=== PATIENT | male | born 1955 | race Caucasian/White ===

== ENCOUNTER 2023-06-02 07:46 | Outpatient (OUT) | payer MEDICARE, OTHER, SELFPAY ==
--- NOTE | 2023-06-02 08:00 | CT_ITS ---
[address] [address] Patient Name: ANTWAN HILLMAN MRN: [id number] date: 1955 Sex: M Assigned Patient Location: US Current Patient Location: Accession/Order Number: [id number] Exam Date: 06/02/2023 08:05 Report Date: 06/03/2023 07:30 At the request of: HARSH DICK Procedure: CT lung screening low-dose EXAMINATION: CT lung screening low-dose HISTORY: History Of Tobacco USe Z87.891 COMPARISON: No relevant comparison available. TECHNIQUE: Axial, Coronal, and Sagittal images were created without the administration of IV contrast material. Dose reduction techniques were achieved by using automated exposure control and/or adjustment of mA and/or kV according to patient size and/or use of iterative reconstruction technique. FINDINGS: LUNGS: Scattered subcentimeter solid noncalcified pulmonary nodules the largest in the right upper lobe measures 3 mm axial image #59. Mild biapical pleural parenchymal scarring. PLEURA: No mass, effusion, or pneumothorax. VASCULATURE: No abnormality. ABEL: No mass or pathologic adenopathy. MEDIASTINUM: No mass or pathologic adenopathy. CARDIAC: No enlargement or pericardial effusion. Mild coronary atherosclerosis AORTA: Dilation of the ascending aorta measuring up to 4 cm in diameter. Mild aortic atherosclerosis. CHEST WALL: No mass or axillary adenopathy BONES: No bone lesion or fracture. LIMITED ABDOMEN: 2 hepatic hypodensities possibly cysts OTHER: Negative. CT/CT lung screening low-dose IMPRESSION: LUNG SCREENING: Lung-RADS Category 2- Benign Appearance or Behavior. Nodules with a very low likelihood of becoming a clinically active cancer due to size or lack of growth. 2. Continue annual screening with LDCT in 12 months. Electronically authenticated by: CELINA MALONEY Date: 06/03/2023 07:30
--- NOTE | 2023-06-02 08:01 | US_ITS ---
[address] [address] Patient Name: ANTWAN HILLMAN MRN: [id number] date: 1955 Sex: M Assigned Patient Location: US Current Patient Location: US Accession/Order Number: [id number] Exam Date: 06/02/2023 08:33 Report Date: 06/02/2023 17:09 At the request of: HARSH DICK Procedure: US aorta EXAM: US aorta HISTORY: Screening for Aortic Abdominal Aneurysm Z13.6 COMPARISON: None. TECHNIQUE: Grayscale and color ultrasound FINDINGS: Proximal aorta: 2.9 x 2.7 cm Mid aorta: 2.2 x 1.9 cm Distal aorta: 2.0 x 1.8 cm Right common iliac artery: 1.2 x 1.3 cm Left common iliac artery: 1.2 x 1.1 cm Mild atherosclerotic plaque with no occlusion US/US aorta IMPRESSION: Borderline dilation of the proximal abdominal aorta measuring 2.9 x 2.7 cm Electronically authenticated by: CELINA MALONEY Date: 06/02/2023 17:09
== END 2023-06-02 07:47 | disposition home or self-care (01) ==
LOC: US 07:51
PROVIDERS: PCP Internal Medicine; Visit Provider Internal Medicine
DX: Z87.891 Personal history of nicotine dependence (principal); Z13.6 Encounter for screening for cardiovascular disorders
CPT/HCPCS: 71271; 76706

== ENCOUNTER 2024-07-02 08:38 | Outpatient (OUT) | payer MEDICARE, OTHER, SELFPAY ==
--- NOTE | 2024-07-02 08:44 | CT_ITS ---
The [address] [address] Patient Name: ANTWAN HILLMAN MRN: [id number] date: 1955 Sex: M Assigned Patient Location: CT Current Patient Location: Accession/Order Number: [id number] Exam Date: 07/02/2024 08:45 Report Date: 07/04/2024 05:49 At the request of: HARSH DICK Procedure: CT lung screening low-dose EXAMINATION: CT lung screening low-dose HISTORY: History Of Smoking COMPARISON: CT lung screening 06/02/2023 TECHNIQUE: Axial, Coronal, and Sagittal images were created without the administration of IV contrast material. Dose reduction techniques were achieved by using automated exposure control and/or adjustment of mA and/or kV according to patient size and/or use of iterative reconstruction technique. FINDINGS: LUNGS: Stable appearance of a few small sub-5 mm nodules scattered within the lungs. No new or suspicious findings. PLEURA: No mass, effusion, or pneumothorax. VASCULATURE: No abnormality. ABEL: No mass or pathologic adenopathy. MEDIASTINUM: No mass or pathologic adenopathy. CARDIAC: No enlargement, pericardial thickening, or pericardial effusion. Coronary Artery calcifications: Coronary calcifications are mild. AORTA: No aneurysm or dissection. CHEST WALL: No mass or axillary adenopathy BONES: No bone lesion or fracture. LIMITED ABDOMEN: 2.2 cm rounded hypodensity within anterior right hepatic lobe suspected represent a cyst or hemangioma. Limited images of the upper abdomen. OTHER: Negative. CT/CT lung screening low-dose IMPRESSION: 1. Lung-RADS 2- Benign Appearance or Behavior. Nodules with a very low likelihood of becoming a clinically active cancer due to size or lack of growth. Follow-up CT Chest in 1 year. Electronically authenticated by: SARMAD ROSS Date: 07/04/2024 05:49
== END 2024-07-02 08:39 | disposition home or self-care (01) ==
LOC: CT 08:38
PROVIDERS: PCP Internal Medicine; Visit Provider Internal Medicine
DX: Z87.891 Personal history of nicotine dependence (principal)
CPT/HCPCS: 71271

== ENCOUNTER 2025-07-20 07:55 | Outpatient (OUT) | payer MEDICARE, OTHER, SELFPAY ==
--- OUTSIDE RECORDS SUMMARY | 2025-07-13 09:30 | XMS_ITS | Encounter Summary ---
Author Organization [facility] Address [address] [place] [address] Care Team Providers Care Tools Programmer Name Role Phone Ryan Longo MD Primary Care Provider Reason for Referral * Imaging (Routine) - AuthorizedSpecialtyDiagnoses / ProceduresReferred By ContactReferred To [facility] Diagnoses Hx of smoking Procedures CT lung screening low dose Ryan Longo MD [address] [facility] [address] [place] [address] Phone: tel: fax: [facility] [address] [place] [address] Phone: tel: fax: Referral IDStatusReasonStart DateExpiration DateVisits RequestedVisits [id number]/20254/ Reason for Visit * ReasonCommentsMedicare Annual Wellness Visit Subsequent Encounter Details DateTypeDepartmentCare Team (Latest Contact Info)Zkyyuwkzcdg07/22/2025 9:30 AM EDTOffice Visit [facility] [address] [place] [address] Ryan Longo MD 112 [facility] [address] [place] [address] Routine general medical examination at health care facility (Primary Dx); ACP (advance care planning); Other hyperlipidemia; Flu vaccine need; Prostate cancer screening; Hx of smoking Social History Tobacco UseTypesPacks/DayYears UsedDateSmoking Tobacco: Some DaysCigarettes0.4 35.8Started: 09/22/1989mokeless Tobacco: Never Tobacco Cessation:Ready to Q uit: Not Asked Alcohol UseStandard Drinks/WeekCommentsYes1 (1 standard drink = 0.6 oz pure alcohol)PHQ-2AnswerDate RecordedPatient Health Questionnaire-2 [id number] Housing Stability Vital SignAnswerDate RecordedIn the last 12 months, was there a time when you were not able to pay the mortgage or rent on time?No05/23/2023In the last 12 months, how many places have you lived?In the last 12 months, was there a time when you did not have a steady place to sleep or slept in ashelter (including now)?No05/23/2023Housing Stability Vital SignAnswerDate RecordedIn the last 12 months, was there a time when you were not able to pay the mortgage or rent on time?No06/23/2024Number of Times Moved in the Last Year Not on file06/23/2024t any time in the past 12 months, were you homeless or living in a mcfp (including now)?No06/23/2024Humiliation, Afraid, Rape, and Kick questionnaireAnswerDate RecordedWithin the last year, have you been afraid of your partner or ex-partner?No07/06/2025Within the last year, have you been humiliated or emotionally abused in other ways by your partner or ex-partner?No 07/06/2025Within the last year, have you been kicked, hit, slapped, or otherwise physically hurt by your partner or ex-partner?No07/06/2025Within the last year, have you been raped or forced to have any kind of sexual activity by your part ner or ex-partner?No07/06/2025Social Connection and Isolation PanelAnswerDate RecordedIn a typical week, how many times do you talk on the phone with family, friends, or neighbors?Once a week07/06/2025How often do you get together with friends or relatives?Twice a week07/06/2025How often do you attend religion or pentecostal services?1 to 4 times per year07/06/2025Do you belong to any clubs or organizations such as religion groups, unions, fraternal or athletic groups, or school groups?No07/06/2025How often do you attend meetings of the clubs or organizations you belong to?Never07/06/2025re you , , , , never , or living with a partner?Mogvjya6007/06/2025UDIT-C AnswerDate RecordedQ1: How often do you have a drink containing alcohol?2-4 times a month07/06/2025Q2: How many drinks containing alcohol do you have on a typical day when you are drinking?1 or Q3: How often do you have six or more drinks on one occasion?Never07/06/2025Overall Financial Resource Strain (CARDIA)AnswerDate RecordedHow hard is it for you to pay for the very basics like food, housing, medical care, and heating?Not hard at all07/06/2025[facility] [place] [facility] - Occupational Stress QuestionnaireAnswerDate RecordedDo you feel stress - tense, restless, nervous, or anxious, or unable to sleep at night because yourmind is troubled all the time - these days?Not at all 07/06/2025Exercise Vital SignAnswerDate RecordedOn average, how many days per week do you engage in moderate to strenuous exercise (like a brisk walk)?4 days 07/06/2025On average, how many minutes do you engage in exercise at this level? 20 min07/06/2025Hunger Vital SignAnswerDate RecordedWithin the past 12 months, you worried that your food would run out before you got the money to buymore. Never true07/06/2025Within the past 12 months, the food you bought just didn't last and you didn't have money to get more.Never true07/06/2025PRAPARE - TransportationAnswerDate RecordedIn the past 12 months, has lack of transportation kept you from medical appointments or from getting medications?No 07/06/2025In the past 12 months, has lack of transportation kept you from meetings, work, or from getting things needed for daily living?No07/06/2025 Housing Stability Vital SignAnswerDate RecordedIn the last 12 months, was there a time when you were not able to pay the mortgage or rent on time?No07/06/2025In the past 12 months, how many times have you moved where you were living?0 07/06/2025t any time in the past 12 months, were you homeless or living in a mcfp (including now)?No07/06/2025B1300 Health LiteracyAnswerDate RecordedHow often do you need to have someone help you when you read instructions, pamphlets, or other written material from your doctor or pharmacy?Never 07/06/2025Sex and Gender InformationValueDate RecordedSex Assigned at BirthMale 05/22/2023 11:19 AM EDTLegal QokFchd4212/04/2022 7:26 PM EDTGender IdentityMale 05/22/2023 11:19 AM EDTSexual OrientationChoose not to bumwsoix24/31/2023 11:19 AM EDTdocumented as of this encounter Last Filed Vital Signs Vital SignReadingTime TakenCommentsBlood Zfirmdtp893/7207/13/2025 9:26 AM EDT Quloi983007/13/2025 9:26 AM EDTTemperature--Respiratory Rate--Oxygen Fjqgggmwht90% 07/13/2025 9:26 AM EDTInhaled Oxygen Concentration--Rhrkmv40.3 kg (155 lb) 07/13/2025 9:26 AM TIUFaqmcs314.7 cm (5' 8 )07/13/2025 9:26 AM EDTBody Mass Index23.5707/13/2025 9:26 AM EDTdocumented in this encounter Functional Status * Over the past 2 weeks, how often have you been bothered by any of the following problems?QuestionAnswerDate of AssessmentAuthorLittle interest or pleasure in doing thingsNot at all07/13/2025 9:28 AM EDTSunshine Sutton LPN Feeling down, depressed, or hopelessNot at all07/13/2025 9:28 AM Sunshine Scott LPNPatient Health Questionnaire-2 Ihgna480 9:28 AM Sunshine Scott LPN documented as of this encounter Progress Notes * Ryan Longo MD - 07/13/2025 9:30 AM EDT Images from the original note were not included. Subjective : Chief Complaint: Rich Flowers is an 70 y.o. male here for an annual wellness visit. I have reviewed and reconciled the history and medication list with the patient today. Current Outpatient Medications Medication Sig Dispense Refill simvastatin (Zocor) 40 MG tablet TAKE 1 TABLET BY MOUTH EVERYDAY AT BEDTIME 100 tablet 3 tamsulosin (Flomax) 0.4 MG 24 hr capsule TAKE 1 CAPSULE BY MOUTH EVERY DAY IN THE MORNING 90 capsule 1 No current facility-administered medications for this visit. Review of Systems List of current healthcare providers: Patient Care Team: Ryan Longo MD as PCP - General (Internal Medicine) Medicare Annual Visit Over the past 2 weeks, how often have you been bothered by any of the following problems? Little interest or pleasure in doing things: Not at all Feeling down, depressed, or hopeless: Not at all Patient Health Questionnaire-2 Score: 0 Booker Fall Risk History of Falling, Immediate or Within 3 Months: (Patient-Rptd) (P) No Secondary Diagnosis: (Patient-Rptd) (P) No Intravenous Therapy/Heparin Lock: (Patient-Rptd) (P) No Health Risk Assessment Form Do you need help eating, bathing, using the toilet, dressing, or getting around your home?: (Patient-Rptd) (P) No Can you prepare your own meals?: (Patient-Rptd) (P) Yes Can you do your own housework without help?: (Patient-Rptd) (P) Yes Can you shop for groceries or clothes without help?: (Patient-Rptd) (P) Yes Do you exercise for about 20 minutes 3 or more days a week?: (Patient-Rptd) (P) No How confident are you that you can control and manage most of your health problems?: (Patient-Rptd)(P) Very confident Can you mange your money, credit cards and accounts, pay bills and taxes?: (Patient-Rptd) (P) Yes Cognitive Screening Three Word Registration: Village, Kitchen, Baby Clock Drawing: Normal Clock - 2 Three Word Recall: All 3 words correct - 3 Total Score (0-5 Points): 5 Pain Assessment Pain Score: (Patient-Rptd) (P) 0 - No pain Advance Care Planning Do you have a living will?: (Patient-Rptd) (P) Yes Do you have a medical power of assistant city attorney?: (Patient-Rptd) (P) Yes Who is your medical power of assistant city attorney?: (Patient-Rptd) (P) Objective : BP 128/72 Pulse 59 Ht 5' 8 Wt 155 lb SpO2 97% BMI 23.57 kg/m?? No results found. Physical Exam Constitutional: General: He is not in acute distress. Appearance: He is normal weight. He is not ill-appearing. HENT: Head: Normocephalic. Cardiovascular: Rate and Rhythm: Normal rate and regular rhythm. Heart sounds: Normal heart sounds. No murmur heard. Pulmonary: Effort: Pulmonary effort is normal. Breath sounds: Normal breath sounds. Musculoskeletal: General: No swelling. Right lower leg: No edema. Left lower leg: No edema. Neurological: Mental Status: He is alert. Psychiatric: Mood and Affect: Mood normal. Thought Content: Thought content normal. Judgment: Judgment normal. Assessment/Plan : The following health maintenance schedule was reviewed with the patient and provided in printed form in the after visit summary: Health Maintenance Topic Date Due Pneumococcal Vaccine: 65+ Years (1 of - PCV) Never done Colorectal Cancer Screening 04/17/2025 Medicare Annual Wellness (AWV) 06/30/2025 Influenza Vaccine Completed Advance Care Planning Assessment/Plan Diagnoses and all orders for this visit: Routine general medical examination at health care facility ACP (advance care planning) Other hyperlipidemia - Lipid panel; Future - Comprehensive metabolic panel; Future Flu vaccine need Prostate cancer screening - PSA Hx of smoking - CT lung screening low dose; Future Other orders - Flu vaccine, high dose seasonal, PF (UKN057) (Fluzone High Dose) No follow-ups on file. Orders Placed This Encounter Procedures Flu vaccine, high dose seasonal, PF (ABX435) (Fluzone High Dose) Electronically signed by Ryan Longo MD on July 13, 2025 documented in this encounter Plan of Treatment NameTypePriorityAssociated DiagnosesOrder ScheduleCT lung screening low dose ImagingRoutine Hx of smoking Expected: 07/13/2025 (Approximate), Expires: 07/13/2026PSALabRoutine Prostate cancer screening Ordered: 07/13/2025Lipid panelLabRoutine Other hyperlipidemia Expected: 07/13/2025 (Approximate), Expires: 07/13/2026omprehensive metabolic panelLabRoutine Other hyperlipidemia Expected: 07/13/2025 (Approximate), Expires: 07/13/2026documented as of this encounter Visit Diagnoses Diagnosis Routine general medical examination at health care facility- Primary Routine general medical examination at a health care facility ACP (advance care planning) Other specified counseling Other hyperlipidemia Flu vaccine need Prostate cancer screening Special screening for malignant neoplasm of prostate Hx of smoking documented in this encounter Care Teams Team MemberRelationshipSpecialtyStart DateEnd Date Ryan Longo MD [address] [place] [address] PCP - GeneralInternal Medicine05/23/23documented as of this encounter
--- NOTE | 2025-07-20 07:58 | CT_ITS ---
The [address] [address] Patient Name: ANTWAN HILLMAN MRN: [id number] date: 1955 Sex: M Assigned Patient Location: CT Current Patient Location: CT Accession/Order Number: [id number] Exam Date: 07/20/2025 08:00 Report Date: 07/20/2025 09:28 At the request of: HARSH DICK Procedure: CT lung screening low-dose LOW-DOSE SCREENING CHEST CT WITHOUT CONTRAST COMPARISON: 07/02/2024 CLINICAL DATA: Former smoker with approximately 30 pack year history Spiral axial unenhanced low-dose images were obtained through the chest. Images were reviewed using both narrow and wide window settings. This CT exam was performed using one or more following dose reduction techniques: Automated exposure control, adjustment of the mA and/or kV according to patient size, or use of iterative reconstruction technique. The heart is within normal limits for size. There is no pericardial effusion. Coronary artery disease is seen. There is atherosclerotic plaque at the aorta and proximal great vessels. The ascending aorta is mildly ectatic. There are a few small nonpathologic mediastinal lymph nodes. There is levoscoliotic curvature and endplate spurring at the spine. Scarring is visualized at the lung apices. There is also additional minor scarring and/or atelectasis at the bases. No focal consolidation, pleural effusion or pneumothorax is seen. Similar tiny pulmonary nodules are visualized. The largest is an intrapulmonary lymph node along the minor fissure on the right. No new nodularity is seen. Limited imaging through the upper abdomen shows a left hepatic hypodensities which may be cysts. There is slight left adrenal limb thickening. Diverticula are present at the imaged colon. CT/CT lung screening low-dose IMPRESSION: MILD SCARRING/ATELECTASIS. STABLE NODULARITY. NO NEW ABNORMALITIES. Lung RADS category 2 - benign Twelve-month low-dose CT follow-up suggested Impression dictated by: Charmaine Marino M.D. 07/20/2025 9:28 AM Dictation Location: [place] [address] Electronically authenticated by: [id number] Y Date: 07/20/2025 09:28
--- OUTSIDE RECORDS SUMMARY | 2025-07-20 08:01 | XMS_ITS | Encounter Summary ---
Author Organization [facility] Address [address] [facility] [place] [address] Care Team Providers Care Psychiatry Physician Name Role Phone Ryan Longo MD Primary Care Provider [phone] Encounter Details DateTypeDepartmentCare Team (Latest Contact Info)Djtvfwzpuhj65/22/2025amboo flowsheet [facility] [address] [facility] [address] [place] [address] Ryan Longo MD [address] [place] [address] Social History Tobacco UseTypesPacks/DayYears UsedDateSmoking Tobacco: Some DaysCigarettes0.4 35.8Started: 09/22/1989mokeless Tobacco: NeverAlcohol UseStandard Drinks/Week CommentsYes1 (1 standard drink = 0.6 oz pure alcohol)PHQ-2AnswerDate Recorded Patient Health Questionnaire-2 Phrvh220Housing Stability Vital Sign AnswerDate RecordedIn the last 12 months, was there [...] time?No06/23/2024Number of Times Moved in the Last YearNot on file1002/2024At any time in the past 12 months, were you homeless or living in a custodial (including now)?No06/23/2024Humiliation, Afraid, Rape, and Kick questionnaire AnswerDate RecordedWithin the last year, have you been afraid of your partner or ex-partner?No07/06/2025Within the last year, have you been humiliated or emotionally abused in other ways by your partner or ex-partner?No07/06/2025 Within the last year, have you been kicked, [...] relatives?Twice a week07/06/2025How often do you attend lutheran or sabianist services?1 to 4 times per year07/06/2025Do you belong to any clubs or organizations such as lutheran groups, unions, fraternal or athletic groups, or school groups?No07/06/2025How often do you attend meetings of the clubs or organizations you belong to?Never07/06/2025re you , , , , never , or living with a partner?Lfjqxlq1807/06/2025UDIT-C AnswerDate RecordedQ1: How often do you have [...] housing, medical care, and heating?Not hard at all07/06/2025[facility] [place] of Occupational Health - Occupational Stress QuestionnaireAnswerDate [...] were you homeless or living in a custodial (including now)?[id number] Health LiteracyAnswerDate RecordedHow often do you need to have someone help you when you read instructions, pamphlets, or other written material from your doctor or pharmacy?Never 07/06/2025Sex and Gender InformationValueDate RecordedSex Assigned at BirthMale 05/22/2023 11:19 AM EDTLegal HajXdiz3712/04/2022 7:26 PM EDTGender IdentityMale 05/22/2023 11:19 AM EDTSexual OrientationChoose not to zdohgtmj49/31/2023 11:19 AM EDTdocumented as of this encounter Plan of Treatment Not on file documented as of this encounter Visit Diagnoses Not on filedocumented in this encounter Care Teams Team MemberRelationshipSpecialtyStart DateEnd Date Ryan Longo MD 112 [facility] [address] [place] [address] PCP - GeneralInternal Medicine05/23/23documented as of this encounter
--- OUTSIDE RECORDS SUMMARY | 2025-07-20 08:01 | XMS_ITS | Encounter Summary ---
Author Organization [facility] Address [address] [facility] [place] [address] Care Team Providers Care Drum Sander Setter Name Role Phone Ryan Longo MD Primary Care Provider [phone] Encounter Details DateTypeDepartmentCare Team (Latest Contact Info)Ilpdqdomdgk22/27/2025bstract [facility] [address] [place] [address] Ryan Longo MD [address] [place] [address] Social History Tobacco UseTypesPacks/DayYears UsedDateSmoking Tobacco: Some DaysCigarettes0.4 35.8Started: 09/22/1989mokeless Tobacco: NeverAlcohol UseStandard Drinks/Week CommentsYes1 (1 standard drink = 0.6 oz pure alcohol)PHQ-2AnswerDate Recorded Patient Health Questionnaire-2 Dyhtf057Housing Stability Vital Sign AnswerDate RecordedIn the last [...] Times Moved in the Last YearNot on file06/23/2024t any time in the past 12 months, were you homeless or living in a residential (including now)?No06/23/2024Humiliation, Afraid, Rape, and Kick questionnaire [...] relatives?Twice a week07/06/2025How often do you attend advent or episcopal services?1 to 4 times per year07/06/2025Do you belong to any clubs or organizations such as advent groups, unions, fraternal or athletic groups, or school groups?No07/06/2025How often do you attend meetings of the clubs or organizations you belong to?Never07/06/2025re you , , , , never , or living with a partner?Oekukjs5407/06/2025UDIT-C AnswerDate RecordedQ1: How often do you have [...] housing, medical care, and heating?Not hard at all07/06/2025[facility] [place] of Occupational Health - Occupational Stress QuestionnaireAnswerDate [...] were you homeless or living in a residential (including now)?No5B1300 Health LiteracyAnswerDate RecordedHow often do you need to have someone help you when you read instructions, pamphlets, or other written material from your doctor or pharmacy?Never 07/06/2025Sex and Gender InformationValueDate RecordedSex Assigned at BirthMale 05/22/2023 11:19 AM EDTLegal VxxBvan3612/04/2022 7:26 PM EDTGender IdentityMale 05/22/2023 11:19 AM EDTSexual OrientationChoose not to rxiiavok60/31/2023 11:19 AM EDTdocumented as of this encounter Plan of Treatment Not on file documented as of this encounter Visit Diagnoses Not on filedocumented in this encounter Care Teams Team MemberRelationshipSpecialtyStart DateEnd Date Ryan Longo MD [address] [address] PCP - GeneralInternal Medicine05/23/23documented as of this encounter
--- OUTSIDE RECORDS SUMMARY | 2025-07-20 08:01 | XMS_ITS | Encounter Summary ---
Author Organization [facility] Address [address] [place] [address] Care Team Providers Care Plumbing Assembler Name Role Phone Ryan Longo MD Primary Care Provider [phone] Encounter Details DateTypeDepartmentCare Team (Latest Contact Info)Svfgxjfjdyi48/22/2025Travel Social History Tobacco UseTypesPacks/DayYears UsedDateSmoking Tobacco: Some DaysCigarettes0.4 35.8Started: 09/22/1989mokeless Tobacco: NeverAlcohol UseStandard Drinks/Week CommentsYes1 (1 standard drink = 0.6 oz pure alcohol)PHQ-2AnswerDate Recorded Patient Health Questionnaire-2 [id number] Stability Vital Sign AnswerDate RecordedIn the last 12 months, was there a time when you were not able to pay the mortgage or rent on time?No05/23/2023In the last 12 months, how many places have you lived?In the last 12 months, was there a time when you did not have a steady place to sleep [place]No05/23/2023Housing Stability Vital SignAnswerDate RecordedIn the [...] relatives?Twice a week07/06/2025How often do you attend anabaptist or rastafari services?1 to 4 times per year07/06/2025Do you belong to any clubs or organizations such as anabaptist groups, unions, [employer] or athletic groups, or school groups?No07/06/2025How often do you attend meetings of the clubs or organizations you belong to?Never07/06/2025re you , , , , never , or living with a partner?Tdinfzw3107/06/2025UDIT-C AnswerDate RecordedQ1: How often do you have [...] housing, medical care, and heating?Not hard at all07/06/2025[place] [facility] - Occupational Stress QuestionnaireAnswerDate [...] homeless or living in a residential (including now)?No07/06/2025B1300 Health LiteracyAnswerDate RecordedHow often do you need to have someone help you when you read instructions, pamphlets, or other written material from your doctor or pharmacy?Never 07/06/2025Sex and Gender InformationValueDate RecordedSex Assigned at BirthMale 05/22/2023 11:19 AM EDTLegal QfyEkmo8912/04/2022 7:26 PM EDTGender IdentityMale 05/22/2023 11:19 AM EDTSexual OrientationChoose not to ircbtwal25/31/2023 11:19 AM EDTdocumented as of this encounter Functional Status * Over the past 2 weeks, how often have you been bothered by any of the following problems?QuestionAnswerDate of AssessmentAuthorLittle interest or pleasure in doing thingsNot at all07/13/2025 9:28 AM Sunshine Scott LPN Feeling down, depressed, or hopelessNot at all07/13/2025 9:28 AM Sunshine Scott LPNPatient Health Questionnaire-2 Chdda050 9:28 AM Sunshine Scott LPN documented as of this encounter Plan of Treatment Not on file documented as of this encounter Visit Diagnoses Not on filedocumented in this encounter Care Teams Team MemberRelationshipSpecialtyStart DateEnd Date Ryan Longo MD [address] [place] [id number] PCP - GeneralInternal Medicine05/23/23documented as of this encounter
--- OUTSIDE RECORDS SUMMARY | 2025-07-20 08:01 | XMS_ITS | Encounter Summary ---
Author Organization [facility] Address [address] [place] [address] Care Team Providers Care Insulator Tester Name Role Phone Ryan Longo MD Primary Care Provider [phone] Encounter Details DateTypeDepartmentCare Team (Latest Contact Info)Enlafvdnrql55/15/2025Travel Social History Tobacco UseTypesPacks/DayYears UsedDateSmoking Tobacco: FormerCigarettes0.530 09/22/1989 - 2014Smokeless Tobacco: NeverAlcohol UseStandard Drinks/WeekComments Yes1 (1 standard drink = 0.6 oz pure alcohol)PHQ-2AnswerDate RecordedPatient Health Questionnaire-2 Ybukl333Housing Stability Vital SignAnswerDate RecordedIn the last 12 months, was there a time when you were not able to pay the mortgage or rent on time?No05/23/2023In the last 12 months, how many places have you lived?In the last 12 months, was there a time when you did not have a steady place to sleep or slept in [facility] (including now)?No 05/23/2023Housing Stability Vital SignAnswerDate RecordedIn the last 12 months, was there a time when you were not able to pay the mortgage or rent on time?No 06/23/2024Number of Times Moved in the Last YearNot on file06/23/2024t any time in the past 12 months, were you homeless or living in a alf (including now)? No06/23/2024Humiliation, Afraid, Rape, and Kick questionnaireAnswerDate Recorded Within the last year, have you been afraid of your partner or ex-partner?No 07/06/2025Within the last year, have you been humiliated or emotionally abused in other ways by your partner or ex-partner?No07/06/2025Within the last year, have you been kicked, hit, slapped, or otherwise physically hurt by your partner or ex-partner?No07/06/2025Within the last year, have you been raped or forced to have any kind of sexual activity by your partner or ex-partner?No07/06/2025 Social Connection and Isolation PanelAnswerDate RecordedIn a typical week, how many times do you talk on the phone with family, friends, or neighbors?Once a week07/06/2025How often do you get together with friends or relatives?Twice a week07/06/2025How often do you attend sabianist or protestant services?1 to 4 times per year07/06/2025Do you belong to any clubs or organizations such as sabianist groups, unions, fraternal or athletic groups, or school groups?No07/06/2025How often do you attend meetings of the clubs or organizations you belong to?Never 07/06/2025re you , , , , never , or living with a partner?Uxeymts4207/06/2025UDIT-CAnswerDate RecordedQ1: How often do you have a drink containing alcohol?2-4 times a month07/06/2025Q2: How many drinks containing alcohol do you have on a typical day when you are drinking?1 or Q3: How often do you have six or more drinks on one occasion?Never 07/06/2025Overall Financial Resource Strain (CARDIA)AnswerDate RecordedHow hard is it for you to pay for the very basics like food, housing, medical care, and heating?Not hard at all07/06/2025[facility] [place] [facility] - Occupational Stress QuestionnaireAnswerDate RecordedDo you feel stress - tense, restless, nervous, or anxious, or unable to sleep at night because yourmind is troubled all the time - these days?Not at all07/06/2025Exercise Vital SignAnswer Date RecordedOn average, how many days per week do you engage in moderate to strenuous exercise (like a brisk walk)?4 days07/06/2025On average, how many minutes do you engage in exercise at this level?20 min07/06/2025Hunger Vital SignAnswerDate RecordedWithin the past 12 months, you worried that your food would run out before you got the money to buymore.Never true07/06/2025Within the past 12 months, the food you bought just didn't last and you didn't have money to get more.Never true07/06/2025PRAPARE - TransportationAnswerDate RecordedIn the past 12 months, has lack of transportation kept you from medical appointments or from getting medications?No07/06/2025In the past 12 months, has lack of transportation kept you from meetings, work, or from getting things needed for daily living?No07/06/2025Housing Stability Vital SignAnswerDate RecordedIn the last 12 months, was there a time when you were not able to pay the mortgage or rent on time?No07/06/2025In the past 12 months, how many times have you moved where you were living?t any time in the past 12 months, were you homeless or living in a alf (including now)?No07/06/2025 B1300 Health LiteracyAnswerDate RecordedHow often do you need to have someone help you when you read instructions, pamphlets, or other written material from your doctor or pharmacy?Never07/06/2025Sex and Gender InformationValueDate RecordedSex Assigned at HoqlxGbaa41/31/2023 11:19 AM EDTLegal TqnRxde6712/04/2022 7:26 PM EDTGender LqlynunnSrot31/31/2023 11:19 AM EDTSexual OrientationChoose not to zurctisv30/31/2023 11:19 AM EDTdocumented as of this encounter Functional Status * AUDIT-C ScoreAnswerDate of FqjicjjadvDydjem339/15/2025 5:17 PM EDOmar, Generic * Q1: How often do you have a drink containing alcohol?AnswerDate of Assessment Author2-4 times a month07/06/2025 5:17 PM Savanah, Generic * Q2: How many drinks containing alcohol do you have on a typical day when you are drinking?AnswerDate of AssessmentAuthor1 or 5:17 PM EDT Mychart, Generic * Q3: How often do you have six or more drinks on one occasion?AnswerDate of JrgnlwhxwaIencacUcxmj94/15/2025 5:17 PM EDTMychart, Generic * Over the past 2 weeks, how often have you been bothered by any of the following problems?QuestionAnswerDate of AssessmentAuthorPatient Health Questionnaire-2 Guubd096 5:21 PM EDTMychart, Generic * Little interest or pleasure in doing thingsAnswerDate of AssessmentAuthorNot at all07/06/2025 5:21 PM EDTMychart, Generic * Feeling down, depressed, or hopelessAnswerDate of AssessmentAuthorNot at all 07/06/2025 5:21 PM EDTMychart, Generic documented as of this encounter Plan of Treatment Not on file documented as of this encounter Visit Diagnoses Not on filedocumented in this encounter Care Teams Team MemberRelationshipSpecialtyStart DateEnd Date Ryan Longo MD [address] [place] [address] PCP - GeneralInternal Medicine05/23/23documented as of this encounter
--- OUTSIDE RECORDS SUMMARY | 2025-07-20 08:01 | XMS_ITS | Encounter Summary ---
Author Organization [facility] Address [address] [place] [address] Care Team Providers Care Psychologist Educational Name Role Phone Ryan Longo MD Primary Care Provider [phone] Encounter Details DateTypeDepartmentCare Team (Latest Contact Info)Tfyxajcuhpx61/22/2025Telephone [facility] [address] [place] [address] Ryan Longo MD [address] [place] [address] Social History Tobacco UseTypesPacks/DayYears UsedDateSmoking Tobacco: Some DaysCigarettes0.4 35.8Started: 09/22/1989mokeless Tobacco: NeverAlcohol UseStandard Drinks/Week CommentsYes1 (1 standard drink = 0.6 oz pure alcohol)PHQ-2AnswerDate Recorded Patient Health Questionnaire-2 Gfkhj715Housing Stability Vital Sign AnswerDate RecordedIn the last [...] were you homeless or living in a [place] (including now)?No06/23/2024Humiliation, Afraid, Rape, and Kick questionnaire [...] relatives?Twice a week07/06/2025How often do you attend latter-day or nondenominational services?1 to 4 times per year07/06/2025Do you belong to any clubs or organizations such as latter-day groups, unions, fraternal or athletic groups, or school groups?No07/06/2025How often do you attend meetings of the clubs or organizations you belong to?Never07/06/2025re you , , , , never , or living with a partner?Vonxqzc3407/06/2025UDIT-C AnswerDate RecordedQ1: How often do you have [...] housing, medical care, and heating?Not hard at all07/06/2025[facility] [place] of Occupational Health - Occupational Stress QuestionnaireAnswerDate [...] were you homeless or living in a [place] (including now)?[id number] Health LiteracyAnswerDate RecordedHow often do you need to have someone help you when you read instructions, pamphlets, or other written material from your doctor or pharmacy?Never 07/06/2025Sex and Gender InformationValueDate RecordedSex Assigned at BirthMale 05/22/2023 11:19 AM EDTLegal GuuPxou8812/04/2022 7:26 PM EDTGender IdentityMale 05/22/2023 11:19 AM EDTSexual OrientationChoose not to qamofoke93/31/2023 11:19 AM EDTdocumented as of this encounter Functional Status * Over the past 2 weeks, how often have you been bothered by any of the following problems?QuestionAnswerDate of AssessmentAuthorLittle interest or pleasure in doing thingsNot at all07/13/2025 9:28 AM Sunshine Scott LPN Feeling down, depressed, or hopelessNot at all07/13/2025 9:28 AM Sunshine Scott LPNPatient Health Questionnaire-2 Feuip928 9:28 AM Sunshine Scott LPN documented as of this encounter Miscellaneous Notes * Telephone Encounter - Elma Mcgill MA - 07/13/2025 10:19 AM EDT Orders placed documented in this encounter Plan of Treatment Not on file documented as of this encounter Procedures Procedure NamePriorityDate/TimeAssociated DiagnosisCommentsCBC (INCLUDES DIFF/PLT)Fnvyxsj7507/13/2025 10:26 AM EDT Nocturia Other hyperlipidemia Prostate cancer screening Medicare annual wellness visit, subsequent PSA, TIVTNPankbtr59/22/2025 10:26 AM EDT Nocturia Medicare annual wellness visit, subsequent LIPID HILGBCdtezlc23/22/2025 10:26 AM EDT Other hyperlipidemia Medicare annual wellness visit, subsequent COMPREHENSIVE METABOLIC YQWUQZrsqldv84/22/2025 10:26 AM EDT Nocturia Other hyperlipidemia Prostate cancer screening Medicare annual wellness visit, subsequent documented in this encounter Results * PSA (07/13/2025 10:26 AM EDT)ComponentValueRef RangeTest MethodAnalysis Time Performed AtPathologist SignaturePSA, TOTAL0.77< OR = 4.00 ng/mLQUESTComment: The total PSA value from this assay system is standardized against the WHO standard. The test result will be approximately 20% lower when compared to the equimolar-standardized total PSA ([place]). Comparison of serial PSA results should be interpreted with this fact in mind. This test was performed using the Siemens chemiluminescent method. Values obtained from different assay methods cannot be used interchangeably. PSA levels, regardless of value, should not be interpreted as absolute evidence of the presence or absence of disease. Specimen (Source)Anatomical Location / LateralityCollection Method / Volume Collection TimeReceived TimeBloodVenous blood specimen / Rhpafrp8307/13/2025 10:26 AM EDT1 10:27 AM EDT Narrative [facility] - 07/14/2025 7:32 AM EDT FASTING:YES FASTING: YES Resulting Agency Comment Performing Organization Information ?Site ID: QPT ?Name: [facility] ?Address: [address] [place] [address], [address] [place] [id number] ?Director: Yousuf Boone MD Authorizing ProviderResult TypeResult StatusDauri Longo MDLAB BLOOD ORDERABLESFinal ResultPerforming OrganizationAddressCity/State/ZIP CodePhone Number [facility] * Lipid panel (07/13/2025 10:26 AM EDT)ComponentValueRef RangeTest Method Analysis TimePerformed AtPathologist SignatureCHOLESTEROL, ZAXJF722<200 mg/dL QUESTHDL CODTUXKTESQ24> OR = 40 mg/lQKYAXNECTJHXDPWJOOB05<150 mg/dLQUESTLDL UGGBCKNRAQS72oq/dL (calc)QUESTComment: Reference range: <100 Desirable range <100 mg/dL for primary prevention; <70 mg/dL for patients with CHD or diabetic patients with > or = 2 CHD risk factors. LDL-C is now calculated using the Rohan-Anders calculation, which is a validated novel method providing better accuracy than the Friedewald equation in the estimation of LDL-C. Rohan ALFRED et al. TOSHIA. 2013;310(19): 5561-7092 (http://education.[employer]/faq/KBW102) CHOL/HDLC RATIO2.4<5.0 (calc)QUESTNON HDL IFYQEBJMJYT65<130 mg/dL (calc)QUEST Comment: For patients with diabetes plus 1 major ASCVD risk factor, treating to a non-HDL-C goal of <100 mg/dL (LDL-C of <70 mg/dL) is considered a therapeutic option. Specimen (Source)Anatomical Location / LateralityCollection Method / Volume Collection TimeReceived TimeBloodVenous blood specimen / Chilomt7907/13/2025 10:26 AM EDT1 10:27 AM EDT Narrative [facility] - 07/14/2025 7:32 AM EDT FASTING:YES FASTING: YES Resulting Agency Comment Performing Organization Information ?Site ID: QPT ?Name: [facility] ?Address: [address] [place] [address], [address] [place] [phone] ?Director: Yousuf Boone MD Authorizing ProviderResult TypeResult StatusDauri Longo MDLAB BLOOD ORDERABLESFinal ResultPerforming OrganizationAddressCity/State/ZIP CodePhone Number [facility] * Comprehensive metabolic panel (07/13/2025 10:26 AM EDT)ComponentValueRef Range Test MethodAnalysis TimePerformed AtPathologist YfqvazfbwMkojcpg7758 - 99 mg/dLQUESTComment: ? Fasting reference interval OYE817 - 25 mg/dLQUESTCreatinine0.940.70 - 1.28 mg/dHFVIELOGZB56> OR = 60 mL/min/1.04n9WNYEAWNF/CREATININE RATIOSEE NOTE: (calc)QUESTComment: ?? Not Reported: BUN and Creatinine are within ?? reference range. ? Rczgxg414703 - 146 mmol/LQUESTPotassium, Bld4.23.5 - 5.3 mmol/JQAXNIHphcvvwn692 98 - 110 mmol/LQUESTCarbon Lpnzchv1687 - 32 mmol/LQUESTCalcium9.78.6 - 10.3 mg/dLQUESTPROTEIN, TOTAL6.96.1 - 8.1 g/dLQUESTALBUMIN4.73.6 - 5.1 g/dLQUEST GLOBULIN2.21.9 - 3.7 g/dL (calc)QUESTALBUMIN/GLOBULIN RATIO2.11.0 - 2.5 (calc) QUESTBILIRUBIN, TOTAL0.40.2 - 1.2 mg/dLQUESTALKALINE QSOIPWYFLWD7785 - 144 U/L SVIYNUAC2204 - 35 U/UIDXUVIAF082 - 46 U/LQUESTSpecimen (Source)Anatomical Location / LateralityCollection Method / VolumeCollection TimeReceived TimeBlood Venous blood specimen / Gzzegqi2607/13/2025 10:26 AM EDT1 10:27 AM EDT Narrative [facility] - 07/14/2025 7:32 AM EDT FASTING:YES FASTING: YES Resulting Agency Comment Performing Organization Information ?Site ID: QPT ?Name: [facility] ?Address: [address] [place] [address], [address] [place] [phone] ?Director: Yousuf Boone MD Authorizing ProviderResult TypeResult StatusDauri Longo MDLAB BLOOD ORDERABLESFinal ResultPerforming OrganizationAddressCity/State/ZIP CodePhone Number [facility] * CBC and differential (07/13/2025 10:26 AM EDT)ComponentValueRef RangeTest MethodAnalysis TimePerformed AtPathologist SignatureWHITE BLOOD CELL COUNT7.7 3.8 - 10.8 Thousand/uLQUESTRED BLOOD CELL COUNT5.204.20 - 5.80 Million/uLQUEST FXISXOCNOK96.413.2 - 17.1 g/vWZBTDKRGBDCVXVVK55.238.5 - 50.0 %JNQKWHDZ27.880.0 - 100.0 jVEQZIXTSO27.627.0 - 33.0 joNGEMAKDPL86.332.0 - 36.0 g/dLQUESTComment: For adults, a slight decrease in the calculated MCHC value (in the range of 30 to 32 g/dL) is most likely not clinically significant; however, it should be interpreted with caution in correlation with other red cell parameters and the patient's clinical condition. RDW13.411.0 - 15.0 %QUESTPLATELET LKPMR143923 - 400 Thousand/xEOYUVWIFF13.27.5 - 12.5 fLQUESTABSOLUTE NEUTROPHILS4,8431,500 - 7,800 cells/uLQUESTABSOLUTE LYMPHOCYTES2,841075 - 3,900 cells/uLQUESTABSOLUTE DSJCBCYSO626296 - 950 cells/uL QUESTABSOLUTE BBRNROVWGRJ85071 - 500 cells/uLQUESTABSOLUTE ZITGMBDNQ044 - 200 cells/bKCXWCPGWGBOESLLUC64.9%EBQIBMRCSIBYTKOF58.7%QUESTMONOCYTES4.9%QUEST EOSINOPHILS4.0%QUESTBASOPHILS0.5%QUESTSpecimen (Source)Anatomical Location / LateralityCollection Method / VolumeCollection TimeReceived TimeBloodVenous blood specimen / Lbmtouh3307/13/2025 10:26 AM EDT1 10:27 AM EDT Narrative [facility] - 07/14/2025 7:32 AM EDT FASTING:YES FASTING: YES Resulting Agency Comment Performing Organization Information ?Site ID: QPT ?Name: [facility] ?Address: [address] [place] [phone] ?Director: Yousuf Boone MD Authorizing ProviderResult TypeResult StatusDanisaige Longo MDLAB BLOOD ORDERABLESFinal ResultPerforming OrganizationAddressCity/State/ZIP CodePhone Number [facility] documented in this encounter Visit Diagnoses Diagnosis Nocturia Other hyperlipidemia Prostate cancer screening Special screening for malignant neoplasm of prostate Medicare annual wellness visit, subsequent documented in this encounter Care Teams Team MemberRelationshipSpecialtyStart DateEnd Date Ryan Longo MD [address] [facility] [address] [place] [address] PCP - GeneralInternal Medicine05/23/23documented as of this encounter
--- OUTSIDE RECORDS SUMMARY | 2025-07-20 08:01 | XMS_ITS | Clinical Summary ---
Author Organization [facility] Healthcare Address [address] [place] [address] Care Team Providers Care Print Manager Name Role Phone Ryan Longo MD Primary Care Provider [phone] Allergies Active AllergyReactionsCriticalityNoted DateCommentsDust Mite ExtractItching 06/26/2021 Medications MedicationSigDispense QuantityRefillsLast FilledStart DateEnd DateStatus simvastatin (Zocor) 40 MG tablet Indications:Other hyperlipidemiaTAKE 1 TABLET BY MOUTH EVERYDAY AT BEDTIME 100 tablet 5Active tamsulosin (Flomax) 0.4 MG 24 hr capsule Indications:Benign prostatic hyperplasia with weak urinary streamTAKE 1 CAPSULE BY MOUTH EVERY DAY IN THE MORNING 90 capsule 5Active Aprhvcekvnp-Xnrctfuo-Kjjgdonmk 1-0.5-0.075 % solution Indications:Cortical age-related cataract of both eyesAdminister 1 drop into affected eye(s) in the morning and 1 drop at noon and 1 drop in the evening and 1 drop before bedtime. 10 mL //[id number] tamsulosin (Flomax) 0.4 MG 24 hr capsule Indications:Benign prostatic hyperplasia with weak urinary streamTAKE 1 CAPSULE BY MOUTH EVERY DAY IN THE MORNING 30 capsule 51Discontinued Active Problems ProblemNoted DateDiagnosed DateChronic ethmoidal ifvzpsphh31/30/2023ecreased hearing of both ears05/21/2023Left hip pain05/21/2023ilateral chronic serous otitis media05/21/2023Right chronic serous otitis media05/21/2023Squamous cell carcinoma of nasal hcsmyz2405/21/2023Nasal sgzmfstuyos38/21/2022History of COVID-19010/08/2021 Overview (05/23/2023): Last Assessment & Plan: Assessment: + COVID test on 09/30/2021, loss of taste and smell only symptoms, was tested prior to surgery procedure. Symptoms are resolved Other bxputhkmcmmupf75/17/2021 Overview (05/23/2023): Last Assessment & Plan: Assessment: on statin. Follows with his PCP. Denies CP or SOB. Nasal deformity, gwvxeuzd24/16/2021 Overview (05/23/2023): Last Assessment & Plan: Assessment: multiple reconstructions, + radiation Benign prostatic hyperplasia without lower urinary tract bezowvay19/02/2020 Resolved Problems ProblemNoted DateDiagnosed DateResolved DateSurgical followup visit02/25/2023 05/23/2023enign prostatic hyperplasia with weak urinary alyeui0208/08/2021 06/30/2024 Overview (05/23/2023): Last Assessment & Plan: Assessment: on tamsulosin. Follows with his PCP. Encounters DateTypeDepartmentCare IxdeCrbznopodps43/27/2025bstract [facility] [address] [facility] [address] [place] [phone] Ryan Longo MD 07/18/2025bstract [facility] [address] [place] [address] [place] [address] Ryan Longo MD 07/13/2025 9:30 AM EDTOffice Visit [facility] [address] [place] [address] [place] [phone] Ryan Longo MD Routine general medical examination at health care facility (Primary Dx); ACP (advance care planning); Other hyperlipidemia; Flu vaccine need; Prostate cancer screening; Hx of qkonsbe7407/13/2025Telephone [facility] [address] [facility] [address] [place] [address] Ryan Longo MD 07/13/2025amboo flowsheet [facility] [address] [facility] [address] [place] [address] Ryan Longo MD 07/13/20251148Jcbjac75/16/2025Refill [facility] [address] [facility] [address] [place] [address] Ryan Longo MD Benign prostatic hyperplasia with weak urinary cxtgzs9407/06/20252616Iafqsz22/22/2025 [facility] [address] [facility] [address] [place] [phone] Ryan Longo MD Benign prostatic hyperplasia with weak urinary streamfrom Last 3 Months Immunizations ImmunizationAdministration DatesNext DueInfluenza, High Dose Seasonal, Preservative Free07/13/2025,08/16/2019Influenza, High-dose Seasonal, Quadrivalent, Preservative Free06/30/2024Influenza, Seasonal, Quadrivalent, Ofjvmsgqse33/15/2023,07/16/2022,07/25/2021,07/19/2020Influenza, injectable, MDCK, preservative free, qfvpwumrjhns82/09/2018Influenza, injectable, quadrivalent, preservative free07/02/2017,07/03/2016Influenza, seasonal, injectable, preservative free06/29/2015Zoster, Iyrgizlgrfe50/30/2024,09/05/2023 Family History Medical HistoryRelationNameCommentsHeart diseaseFathergeorgeRelationNameStatus CommentsFathergeorgeDeceasedMotherDeceased Social History Tobacco UseTypesPacks/DayYears UsedDateSmoking Tobacco: Some DaysCigarettes0.4 35.8Started: 09/22/1989mokeless Tobacco: Never Tobacco Cessation:Ready to Q uit: Not Asked Alcohol UseStandard Drinks/WeekCommentsYes1 (1 standard drink = 0.6 oz pure alcohol)PHQ-2AnswerDate RecordedPatient Health Questionnaire-2 Ymtvh179 Housing Stability Vital SignAnswerDate RecordedIn the last 12 months, was there a time when you were not able to pay the mortgage or rent on time?No05/23/2023In the last 12 months, how many places have you lived?In the last 12 months, was there a time when you did not have a steady place to sleep or slept in peacehealther (including now)?No05/23/2023Housing Stability Vital SignAnswerDate RecordedIn the last 12 months, was there a time when you were not able to pay the mortgage or rent on time?No06/23/2024Number of Times Moved in the Last Year Not on file06/23/2024t any time in the past 12 months, were you homeless or living in a alf (including now)?No06/23/2024Humiliation, Afraid, Rape, and Kick questionnaireAnswerDate [...] relatives?Twice a week07/06/2025How often do you attend holiness or buddhism services?1 to 4 times per year07/06/2025Do you belong to any clubs or organizations such as holiness groups, unions, fraternal or athletic groups, or school groups?No07/06/2025How often do you attend meetings of the clubs or organizations you belong to?Never07/06/2025re you , , , , never , or living with a partner?Qmkddjp2207/06/2025UDIT-C AnswerDate RecordedQ1: How often do you have [...] housing, medical care, and heating?Not hard at all07/06/2025[facility] [place] [facility] - Occupational Stress QuestionnaireAnswerDate [...] homeless or living in a alf (including now)?No07/06/2025B1300 Health LiteracyAnswerDate RecordedHow often do you need to have someone help you when you read instructions, pamphlets, or other written material from your doctor or pharmacy?Never 07/06/2025Sex and Gender InformationValueDate RecordedSex Assigned at BirthMale 05/22/2023 11:19 AM EDTLegal ExpErfb4712/04/2022 7:26 PM EDTGender IdentityMale 05/22/2023 11:19 AM EDTSexual OrientationChoose not to /31/2023 11:19 AM EDT Last Filed Vital Signs Vital SignReadingTime TakenCommentsBlood Xwxozzvg814/7207/13/2025 9:26 AM EDT Wrusf740807/13/2025 9:26 AM EDTTemperature--Respiratory Rate--Oxygen Yjvvfvayfh90% 07/13/2025 9:26 AM EDTInhaled Oxygen Concentration--Drvpub46.3 kg (155 lb) 07/13/2025 9:26 AM OTVAbzdbq622.7 cm (5' 8 )07/13/2025 9:26 AM EDTBody Mass Index23.5707/13/2025 9:26 AM EDT Plan of Treatment Health MaintenanceDue DateLast DoneCommentsCT Okntehvkfpwy1954FIT-DNA 1955FIT1955FOBT1955 7120Ryjkdmfkfgazx1954TaP/Tdap/Td Vaccines (1 - Tdap)1961neumococcal Vaccine: 65+ Years (1 of 2 - PCV) 03/26/19738667Icuozkzsvqh60Colorectal Cancer Rrsdtmgyj59/27/2025 COVID-19 Vaccine ( season)/, 12/05/2020, 11/07/2020Medicare Annual Wellness (AWV), 06/30/2024, 05/23/2023Influenza PffnkhdUxyvnsnkf15/22/2025, 06/30/2024, 09/05/2023, Additional history existsHIB VaccinesAged OutNo longer eligible based on patient's age to complete this topicHPV VaccinesAged OutNo longer eligible based on patient's age to complete this topicHepatitis A VaccinesAged OutNo longer eligible based on patient's age to complete this topicHepatitis B VaccinesAged OutNo longer eligible based on patient's age to complete this topicIPV Vaccines Aged OutNo longer eligible based on patient's age to complete this topic Meningococcal B VaccineAged OutNo longer eligible based on patient's age to complete this topicMeningococcal VaccineAged OutNo longer eligible based on patient's age to complete this topicRotavirus VaccinesAged OutNo longer eligible based on patient's age to complete this topic Procedures Procedure NamePriorityDate/TimeAssociated DiagnosisCommentsPSA, TOTALRoutine 07/13/2025 10:26 AM EDT Nocturia Medicare annual wellness visit, subsequent LIPID RANGYWkbaoby29/22/2025 10:26 AM EDT Other hyperlipidemia Medicare annual wellness visit, subsequent COMPREHENSIVE METABOLIC RWIXVGuorumm80/22/2025 10:26 AM EDT Nocturia Other hyperlipidemia Prostate cancer screening Medicare annual wellness visit, subsequent CBC (INCLUDES DIFF/PLT)Iltlthx5907/13/2025 10:26 AM EDT Nocturia Other hyperlipidemia Prostate cancer screening Medicare annual wellness visit, subsequent COLONOSCOPY AXMXFVDNVPBcytvpe36/27/2015from Last 3 Months or Most Recently Relevant to Health Maintenance Results * CBC and differential (07/13/2025 10:26 AM EDT)ComponentValueRef RangeTest MethodAnalysis TimePerformed AtPathologist SignatureWHITE BLOOD CELL COUNT7.7 3.8 - 10.8 Thousand/uLQUESTRED BLOOD CELL COUNT5.204.20 - 5.80 Million/uLQUEST IHIPIRGCAH62.413.2 - 17.1 g/cDTKNPLVMULPQJYWP17.238.5 - 50.0 %QJLGSXFN20.880.0 - 100.0 iCUFHTBUUI08.627.0 - 33.0 cnAXQGIVANH35.332.0 - 36.0 g/dLQUESTComment: For adults, a slight decrease in the calculated MCHC value (in the range of 30 to 32 g/dL) is most likely not clinically significant; however, it should be interpreted with caution in correlation with other red cell parameters and the patient's clinical condition. RDW13.411.0 - 15.0 %QUESTPLATELET KYEJB020647 - 400 Thousand/hFZLWFUYHC18.27.5 - 12.5 fLQUESTABSOLUTE NEUTROPHILS4,8431,500 - 7,800 cells/uLQUESTABSOLUTE LYMPHOCYTES2,063446 - 3,900 cells/uLQUESTABSOLUTE WBVQPUVHS311863 - 950 cells/uL QUESTABSOLUTE SMCLSUJOWPB17058 - 500 cells/uLQUESTABSOLUTE PCTJNYUJC779 - 200 cells/tRKSHABVCZPKOYEEKA23.9%BRBJCHNRCKYCIADS55.7%QUESTMONOCYTES4.9%QUEST EOSINOPHILS4.0%QUESTBASOPHILS0.5%QUESTSpecimen (Source)Anatomical Location / LateralityCollection Method / VolumeCollection TimeReceived TimeBloodVenous blood specimen / Xbimofj4307/13/2025 10:26 AM EDT1 10:27 AM EDT Narrative [facility] - 07/14/2025 7:32 AM EDT FASTING:YES FASTING: YES Resulting Agency Comment Performing Organization Information ?Site ID: QPT ?Name: [facility] ?Address: [address] [place] [id number] ?Director: Yousuf Boone MD Authorizing ProviderResult TypeResult StatusDauri Longo MDLAB BLOOD ORDERABLESFinal ResultPerforming OrganizationAddressCity/State/ZIP CodePhone Number [facility] * PSA (07/13/2025 10:26 AM EDT)ComponentValueRef RangeTest MethodAnalysis Time Performed AtPathologist SignaturePSA, TOTAL0.77< OR = 4.00 ng/mLQUESTComment: The total PSA value from this assay system is standardized against the WHO standard. The test result will be approximately 20% lower when compared to the equimolar-standardized total PSA ([place]). Comparison of serial PSA results should be [...] Volume Collection TimeReceived TimeBloodVenous blood specimen / Lwnrtyf6407/13/2025 10:26 AM EDT1 10:27 AM EDT Narrative [facility] - 07/14/2025 7:32 AM EDT FASTING:YES FASTING: YES Resulting Agency Comment Performing Organization Information ?Site ID: QPT ?Name: [facility] ?Address: [address] [place] [phone] ?Director: Yousuf Boone MD Authorizing ProviderResult TypeResult StatusDauri Longo MDLAB BLOOD ORDERABLESFinal ResultPerforming OrganizationAddressCity/State/ZIP CodePhone Number [facility] * Lipid panel (07/13/2025 10:26 AM EDT)ComponentValueRef RangeTest Method Analysis TimePerformed AtPathologist SignatureCHOLESTEROL, OESVU198<200 mg/dL QUESTHDL VKSGVZZFAFX46> OR = 40 mg/mMTDETPGGGYQCRMVGXGM91<150 mg/dLQUESTLDL DLDUWVNUYTN82uw/dL (calc)QUESTComment: Reference range: <100 Desirable range <100 mg/dL for primary prevention; <70 mg/dL for patients with CHD or diabetic patients with > or = 2 CHD risk factors. LDL-C is now calculated using the Rohan-Anders calculation, which is a validated novel method providing better accuracy than the Friedewald equation in the estimation of LDL-C. Rohan SS et al. TOSHIA. 2013;310(19): 6319-1138 (http://education.[employer].Flasma/faq/GJW834) CHOL/HDLC RATIO2.4<5.0 (calc)QUESTNON HDL ZIECVRFFHHD96<130 mg/dL (calc)QUEST Comment: For patients with diabetes plus 1 major ASCVD risk factor, treating to a non-HDL-C goal of <100 mg/dL (LDL-C of <70 mg/dL) is considered a therapeutic option. Specimen (Source)Anatomical Location / LateralityCollection Method / Volume Collection TimeReceived TimeBloodVenous blood specimen / Vdosnic1907/13/2025 10:26 AM EDT1 10:27 AM EDT Narrative [facility] - 07/14/2025 7:32 AM EDT FASTING:YES FASTING: YES Resulting Agency Comment Performing Organization Information ?Site ID: QPT ?Name: [facility] ?Address: [address] [place] [address], [address] [place] [phone] ?Director: Yousuf Boone MD Authorizing ProviderResult TypeResult StatusDauri Longo MDLAB BLOOD ORDERABLESFinal ResultPerforming OrganizationAddressCity/State/ZIP CodePhone Number [facility] * Comprehensive metabolic panel (07/13/2025 10:26 AM EDT)ComponentValueRef Range Test MethodAnalysis TimePerformed AtPathologist GanvlznbfGpxplyl3276 - 99 mg/dLQUESTComment: ? Fasting reference interval YJM625 - 25 mg/dLQUESTCreatinine0.940.70 - 1.28 mg/wRNREBHSOMN71> OR = 60 mL/min/1.03b8VMFLGMON/CREATININE RATIOSEE NOTE: (calc)QUESTComment: ?? Not Reported: BUN and Creatinine are within ?? reference range. ? Hcfcik720105 - 146 mmol/LQUESTPotassium, Bld4.23.5 - 5.3 mmol/CPZUKKCevcbnor246 98 - 110 mmol/LQUESTCarbon Ikizeeo2725 - 32 mmol/LQUESTCalcium9.78.6 - 10.3 mg/dLQUESTPROTEIN, TOTAL6.96.1 - 8.1 g/dLQUESTALBUMIN4.73.6 - 5.1 g/dLQUEST GLOBULIN2.21.9 - 3.7 g/dL (calc)QUESTALBUMIN/GLOBULIN RATIO2.11.0 - 2.5 (calc) QUESTBILIRUBIN, TOTAL0.40.2 - 1.2 mg/dLQUESTALKALINE POSYWFIYZDZ9880 - 144 U/L DFARYJBL1725 - 35 U/ATXVTWULN019 - 46 U/LQUESTSpecimen (Source)Anatomical Location / LateralityCollection Method / VolumeCollection TimeReceived TimeBlood Venous blood specimen / Lftqdmy1407/13/2025 10:26 AM EDT1 10:27 AM EDT Narrative [facility] - 07/14/2025 7:32 AM EDT FASTING:YES FASTING: YES Resulting Agency Comment Performing Organization Information ?Site ID: QPT ?Name: [facility] ?Address: [address] [place] [address], [address] [place] [phone] ?Director: Yousuf Boone MD Authorizing ProviderResult TypeResult StatusDauri Longo MDLAB BLOOD ORDERABLESFinal ResultPerforming OrganizationAddressCity/State/[facility] CodePhone Number [facility] * COLONOSCOPY DIAGNOSTIC (04/17/2015)Anatomical RegionLateralityModality Radiographic ImagingSpecimen (Source)Anatomical Location / Laterality Collection Method / VolumeCollection TimeReceived Time04/17/2015 Narrative Authorizing ProviderResult TypeResult StatusDauri Longo MDIMG XR PROCEDURES Final Result from Last 3 Months or Most Recently Relevant to Health Maintenance Insurance [place] [id number] Care Teams Team MemberRelationshipSpecialtyStart DateEnd Ryan Longo MD [address] [address] PCP - GeneralInternal Medicine05/23/23
--- OUTSIDE RECORDS SUMMARY | 2025-07-20 08:01 | XMS_ITS | Encounter Summary ---
Author Organization [facility] Address [address] [facility] [place] [address] Care Team Providers Care Dimensional Inspector Name Role Phone Ryan Longo MD Primary Care Provider [phone] Encounter Details DateTypeDepartmentCare Team (Latest Contact Info)Thvuikqlvmy64/27/2025bstract [facility] [address] [facility] [address] [place] [address] Ryan Longo MD [address] [place] [address] [place] [address] Social History Tobacco UseTypesPacks/DayYears UsedDateSmoking Tobacco: Some DaysCigarettes0.4 35.8Started: 09/22/1989mokeless Tobacco: NeverAlcohol UseStandard Drinks/Week CommentsYes1 (1 standard drink = 0.6 oz pure alcohol)PHQ-2AnswerDate Recorded Patient Health Questionnaire-2 Gunhs595Housing Stability Vital Sign AnswerDate RecordedIn the last [...] were you homeless or living in a skilled nursing (including now)?No06/23/2024Humiliation, Afraid, Rape, and Kick questionnaire [...] relatives?Twice a week07/06/2025How often do you attend bahai or hoahaoism services?1 to 4 times per year07/06/2025Do you belong to any clubs or organizations such as bahai groups, unions, fraternal or athletic groups, or school groups?No07/06/2025How often do you attend meetings of the clubs or organizations you belong to?Never07/06/2025re you , , , , never , or living with a partner?Jztmygp8907/06/2025UDIT-C AnswerDate RecordedQ1: How often do you have [...] care, and heating?Not hard at all07/06/2025[facility] [place] of Occupational Health - Occupational Stress QuestionnaireAnswerDate [...] were you homeless or living in a skilled nursing (including now)?No5B1300 Health LiteracyAnswerDate RecordedHow often do you need to have someone help you when you read instructions, pamphlets, or other written material from your doctor or pharmacy?Never 07/06/2025Sex and Gender InformationValueDate RecordedSex Assigned at BirthMale 05/22/2023 11:19 AM EDTLegal KqoOdqq8612/04/2022 7:26 PM EDTGender IdentityMale 05/22/2023 11:19 AM EDTSexual OrientationChoose not to feiqfghk03/31/2023 11:19 AM EDTdocumented as of this encounter Plan of Treatment Not on file documented as of this encounter Visit Diagnoses Not on filedocumented in this encounter Care Teams Team MemberRelationshipSpecialtyStart DateEnd Date Ryan Longo MD [address] [address] PCP - GeneralInternal Medicine05/23/23documented as of this encounter
--- OUTSIDE RECORDS SUMMARY | 2025-07-20 08:01 | XMS_ITS | Encounter Summary ---
Author Organization [facility] Address [address] [place] [address] Care Team Providers Care Project Production Engineer Name Role Phone Ryan Longo MD Primary Care Provider [phone] Reason for Visit * ReasonCommentsMed Change Request Encounter Details DateTypeDepartmentCare Team (Latest Contact Info)Cnfzxkgefac02/16/2025Refill [facility] [address] [place] [address] Ryan Longo MD [address] [place], [place] [id number] Benign prostatic hyperplasia with weak urinary stream Social History Tobacco UseTypesPacks/DayYears UsedDateSmoking Tobacco: FormerCigarettes0.530 09/22/1989 - 2014Smokeless Tobacco: NeverAlcohol UseStandard Drinks/WeekComments Yes1 (1 standard drink = 0.6 oz pure alcohol)PHQ-2AnswerDate RecordedPatient Health Questionnaire-2 Ligpp059Housing Stability Vital SignAnswerDate RecordedIn the last 12 months, was there a time when you were not able to pay the mortgage or rent on time?No05/23/2023In the last 12 months, how many places have you lived?In the last 12 months, was there a time when you did not have a steady place to sleep or slept in ashelter (including now)?No 05/23/2023Housing Stability Vital SignAnswerDate RecordedIn [...] relatives?Twice a week07/06/2025How often do you attend jainism or hoahaoism services?1 to 4 times per year07/06/2025Do you belong to any clubs or organizations such as jainism groups, unions, fraternal or athletic groups, or school groups?No07/06/2025How often do you attend meetings of the clubs or organizations you belong to?Never 07/06/2025re you , , , , never , or living with a partner?Ornrhsx9907/06/2025UDIT-CAnswerDate RecordedQ1: How often do you have a [...] medical care, and heating?Not hard at all07/06/2025[place] of Occupational Health - Occupational Stress QuestionnaireAnswerDate [...] pharmacy?Never07/06/2025Sex and Gender InformationValueDate RecordedSex Assigned at LudqtOirx69/31/2023 11:19 AM EDTLegal FjaZuws0212/04/2022 7:26 PM EDTGender IipfirmlSjbh92/31/2023 11:19 AM EDTSexual OrientationChoose not to yhpzbssk77/31/2023 11:19 AM EDTdocumented as of this encounter Plan of Treatment Not on file documented as of this encounter Visit Diagnoses Diagnosis Benign prostatic hyperplasia with weak urinary stream documented in this encounter Care Teams Team MemberRelationshipSpecialtyStart DateEnd Date Ryan Longo MD [address] [place] [id number] PCP - GeneralInternal Medicine05/23/23documented as of this encounter
--- OUTSIDE RECORDS SUMMARY | 2025-07-20 08:01 | XMS_ITS | Clinical Summary ---
Author Organization [facility] Address [address] [place], [place] [id number] Care Team Providers Care Feltmaker And Weigher Name Role Phone Donta RAZO MD, Ryan Mccollum Primary Care Provider [phone] Allergies Active AllergyReactionsCriticalityNoted DateCommentsHouse WfdgOtzgysm60/05/2021 Medications MedicationSigDispense QuantityRefillsLast FilledStart DateEnd DateStatus tamsulosin HCl (TAMSULOSIN ORAL) Take 0.4 mg by mouth once daily.Active simvastatin (ZOCOR) 40 mg tablet Take 40 mg by mouth daily at bedtime.Active Active Problems ProblemNoted DateDiagnosed DateSkin kqvurf9307/11/2023Nasal valve stenosis 07/11/2023Surgical followup visit02/25/2023Nasal oqbrnlsnorj59/21/2022History of COVID-19010/08/2021 Assessment & Plan (10/08/2021 2:52 PM EST): Assessment: + COVID test on 09/30/2021, loss of taste and smell only symptoms, was tested prior to surgery procedure. Symptoms are resolved Other sbatilgylaokmw70/17/2021 Assessment & Plan (11/22/2022 8:00 AM EST): Assessment: on statin. Follows with his PCP. Denies CP or SOB. Assessment & Plan (10/04/2022 10:23 AM EST): Assessment: takes Zocor Assessment & Plan (10/08/2021 2:48 PM EST): Assessment: managed on medication Assessment & Plan (08/08/2021 9:18 AM EST): Assessment: treats w/ Simvastatin Benign prostatic hyperplasia with weak urinary hiveno6408/08/2021 Assessment & Plan (11/22/2022 8:00 AM EST): Assessment: on tamsulosin. Follows with his PCP. 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 Assessment & Plan (10/04/2022 10:23 AM EST): Assessment: multiple reconstructions, + radiation Assessment & Plan (10/08/2021 2:48 PM EST): Assessment: scheduled for surgery Assessment & Plan (08/22/2021 10:28 AM EST): Assessment: s/p surgical revision PLAN: post op care as instructed Benign prostatic hyperplasia without lower urinary tract hrqkzatk48/02/2020 Family History Medical HistoryRelationCommentsHeartFatherCABG later in lifeAnesthesia Problems No Family HistoryMalig HyperthermiaNo Family HistoryRelationStatusCommentsFather Social History Tobacco UseTypesPacks/DayYears UsedDateSmoking Tobacco: FormerCigarettes0.830 09/22/1989 - 09/22/2014Smokeless Tobacco: Never Tobacco Cessation:Counseling Given: Not Answered Alcohol UseStandard Drinks/WeekCommentsYes0 (1 standard drink = 0.6 oz pure alcohol)once per month or lessArea Deprivation IndexAnswerDate RecordedNational Score (1-100), lower number is lower rqwb238801/29/2023State Score (1-10), lower number is lower fjhy67601/29/2023ata from: https://www.neighborhoodatlas.[facility].edu/. Last address used for hhujvdhrcyu[address]/29/2023Sex and Gender InformationValueDate Recorded Sex Assigned at AsfhrRcyv25/29/2021 6:57 AM EDTLegal HnzVrxw6402/02/2015 2:49 PM EDTGender ZpetwestHvhn63/29/2021 6:57 AM EDTSexual CddwbxwvyrsEjjbzahk75/29/2021 6:57 AM EDT Last Filed Vital Signs Vital SignReadingTime TakenCommentsBlood Vyylgush397/6707/11/2023 12:00 PM EDT Brdrt710007/11/2023 12:00 PM IMZEiijntuzysc50.8 ??C (98.3 ??F)07/11/2023 11:00 AM EDTRespiratory Ioup748907/11/2023 12:00 PM EDTOxygen Kktvfgdacj73%07/11/2023 12:00 PM EDTInhaled Oxygen Concentration--Xmxqua49.4 kg (175 lb)07/11/2023 7:05 AM EDT Gbocpx693.7 cm (5' 8 )07/11/2023 7:05 AM EDTBody Mass Index26.6107/11/2023 7:05 AM EDT Plan of Treatment Health MaintenanceDue DateLast DoneCommentsAbdominal Aortic Aneurysm Screening 4Anxiety Jkffqtobl71/05/1972Depression Mpycrkblj29/05/1972Hepatitis C Lvndwngzq05/05/1972DTaP,Tdap,Td Vaccine (1 - Tdap)1973CT Colonography 1999Cologuard (FIT-DNA)03/26/19992046Awxxprbbtdy80/05/1999Colorectal Cancer Jlwyijljq86/05/1999Fecal Occult Blood03/26/19993427Pogqxcohocyju01/05/1999 Pneumococcal Vaccine: 50+ (1 of 1 - PCV)2004Shingrix Vaccine (1 of 2) 2004Medicare Annual Wellness Visit01/20/2021dvance Directive Discussion 5Covid-19 Vaccine ( season)5001/02/2022, 12/05/2020, 11/07/2020Influenza Vaccine (#1)510/, 07/25/2021, 07/19/2020, Additional history existsDiabetes Kyxfofwlm74/20/382821/, 07/05/2021ipid Tsckwrvcw00/02/2023RSV Vaccine (1 - 1-dose 75+ series)2029 Medical Devices ImplantedTypeAreaManufacturerDevice IdentifierShelf Expiration DateModel / Serial / LotGrft Costal Cartilage 5-8cm - [id number] Implanted:Qty: 1 on 08/21/2021 by Sadi Garcia MD at [facility] N/A: NoseCOMMUNITY TISSUE [id number]/26/[id number] / [id number] / [id number]-[id number]-[id number] Implant - [id number] Implanted:Qty: 1 on 10/12/[facility]: NoseCOMMUNITY TISSUE [id number]/02/[id number] / [id number] / [id number] Cartilage Implanted:Qty: 1 on 07/11/2023 by Sadi Garcia MD at [facility] Left: NoseCOMMUNITY TISSUE NIEZTAQQ44/27/[id number] / [id number] / [id number] Procedures Procedure NamePriorityDate/TimeAssociated DiagnosisCommentsCOMPREHENSIVE METABOLIC XBUZDGrmubvr78/20/2023 10:18 AM EST Preop examination from Last 3 Months or Most Recently Relevant to Health Maintenance Results * (ABNORMAL) COMP METABOLIC PANEL (10/11/2022 10:18 AM EST)ComponentValueRef RangeTest MethodAnalysis TimePerformed AtPathologist SignatureProtein, Total 6.86.3 - 8.0 g/dL10/11/2022 10:57 AM EST[facility] Albumin4.83.9 - 4.9 g/dL10/11/2022 10:57 AM [facility] LABCalcium, Total9.78.5 - 10.2 mg/dL10/11/2022 10:57 AM [facility] LABBilirubin, Total0.20.2 - 1.3 mg/dL10/11/2022 10:57 AM [facility] LABAlkaline Aqxrglykhfz1295 - 113 U/L 10/11/2022 10:57 AM [facility] GKJGOF3233 - 40 U/L 10/11/2022 10:57 AM [facility] WVCBNU4742 - 54 U/L 10/11/2022 10:57 AM [facility] ONHMgasrbz1082 - 99 mg/dL10/11/2022 10:57 AM [facility] LABComment: The [place] Diabetes Association (ADA) provides guidance for cutoff values for fasting glucose andrandom glucose. The ADA defines fasting as no caloric intake for at least 8 hours. Fasting plasma glucose results between 100 to 125 mg/dL indicate increased risk for diabetes (prediabetes). Fasting plasma glucose results greater than or equal to 126 mg/dL meet the criteria for diagnosis of diabetes. In the absence of unequivocal hyperglycemia, results should be confirmed by repeat testing. In a patient with classic symptoms of hyperglycemia or hyperglycemic crisis, random plasma glucose results greater than or equal to 200 mg/dL meet the criteria for diagnosis of diabetes. Reference: Standards of Medical Care in Diabetes 2016, [place] [employer]. Diabetes Care. 2016.39(Suppl 1). CZK793 - 24 mg/dL10/11/2022 10:57 AM [facility] Creatinine0.970.73 - 1.22 mg/dL10/11/2022 10:57 AM [facility] ZTHEirwaz420629 - 144 mmol/L10/11/2022 10:57 AM [facility] LABPotassium4.43.7 - 5.1 mmol/L10/11/2022 10:57 AM [facility] WMQFmcbqqxr562(H)97 - 105 mmol/L10/11/2022 10:57 AM EST [facility] VIDIH24139 - 30 mmol/L10/11/2022 10:57 AM EST [facility] LABAnion Tgp606 - 18 mmol/L10/11/2022 10:57 AM [facility] LABEstimated Glomerular Filtration Rate85 >=60 mL/min/1.73m 10/11/2022 10:57 AM [facility] LABComment:Estimated Glomerular Filtration Rate (eGFR) is calculated using the 2020 CKD-EPI creatinine equation. This equation utilizes serum creatinine, sex, and age as parameters. The creatinine assay has traceable calibration to isotope dilution- mass spectrometry. Refer to KDIGO guidelines for clinical interpretation. In patients with unstable renal function, e.g. those with acute kidney injury, the eGFRmay not accurately reflect actual GFR.Specimen (Source)Anatomical Location / LateralityCollection Method / VolumeCollection TimeReceived TimeBloodBLOOD SPECIMEN / UnknownVenipuncture / Owqifek8610/11/2022 10:18 AM EST10/11/2022 10:18 AM EST Narrative Authorizing ProviderResult TypeResult StatusLynda Kenya PATEL.CNPLABORATORYFinal ResultPerforming OrganizationAddressCity/State/ZIP CodePhone Number [facility] [address] [place] [address] from Last 3 Months or Most Recently Relevant to Health Maintenance Insurance Care Teams Team MemberRelationshipSpecialtyStart DateEnd Date Ryan Longo II, MD [address] [address] PCP - GeneralInternal Medicine06/12/23
--- OUTSIDE RECORDS SUMMARY | 2025-07-20 08:01 | XMS_ITS | CCD ---
Author Organization [facility] Care Team Providers Care Sheet Heater Name Role Phone XAVIER HAYNES Unavailable Unavailable XAVIER HAYNES Unavailable Unavailable Manny Mejia Unavailable Unavailable XAVIER HAYNES Unavailable Unavailable XAVIER HAYNES Unavailable Unavailable Manny Mejia Unavailable Unavailable XAVIER HAYNES Unavailable Unavailable XAVIER HAYNES Unavailable Unavailable XAVIER HAYNES Unavailable Unavailable Manny Mejia Unavailable Unavailable Zenchepe Fernando A Unavailable Unavailable Manny Mejia Unavailable Unavailable JACKIE, DR BRYANT Admitting Unavailable JACKIE, DR BRYANT Attending Unavailable JACKIE, DR BRYANT Primary Care Unavailable JACKIE, DR BRYANT Consulting Unavailable Manny Mejia MD Primary Care Provider [phone] Donta RAZO MD, Daniel B Primary Care Provider [phone] JACKIE, MANNY M Primary Care Unavailable LIZBETH GARCIA Attending Unavailable LIZBETH GARCIA Admitting Unavailable LIZBETH GARCIA Admitting Unavailable HOY, MANNY M Primary Care Unavailable LIZBETH GARCIA Attending Unavailable BASILIOY, MANNY M Referring Unavailable HOY, MANNY M Primary Care Unavailable BASILIOY, MANNY M Primary Care Unavailable HOY, MANNY M Primary Care Unavailable LIZBETH GARCIA Referring Unavailable HOY, MANNY M Primary Care Unavailable LIZBETH GARCIA Attending Unavailable LIZBETH GARCIA Referring Unavailable BASILIOY, MANNY M Primary Care Unavailable ANNABELLE MORIN Attending Unavailable RYAN LONGO II Primary Care Unavailable LIZBETH GARCIA Referring Unavailable RYAN LONGO II Primary Care Unavailable LIZBETH GARCIA Attending Unavailable BASILIOY, MANNY M Primary Care Unavailable ANNABELLE MORIN Attending Unavailable LIZBETH GARCIA Referring Unavailable HOY, MANNY M Primary Care Unavailable LIZBETH GARCIA Referring Unavailable HOY, MANNY M Primary Care Unavailable Ryan Longo MD Primary Care Provider [phone] YULI GAN Attending Unavailable YULI GAN Attending Unavailable YULI GAN Attending Unavailable YULI GAN Attending Unavailable YULI GAN Attending Unavailable YULI GAN Attending Unavailable YULI GAN Attending Unavailable RYAN LONGO Attending Unavailable YULI GAN Attending Unavailable Allergies Allergy ClassificationReported Allergen(s)Allergy TypeDate of OnsetReaction(s) Facility (11 sources)house dust allergenic extract; Translations: [HOUSE DUST]Drug [id number] [facility] Work Phone: (20 sources)House dust miteAllergy to qchagegqx06-35-6459YiqtggbDEXL Healthcare Medications Current Medications MedicationDrug Class(es)DatesSig (Normalized)Sig (Original)amoxicillin 875 mg / clavulanate 125 mg oral tablet (2 sources)Penicillin-class AntibacterialStart: 07-11-2023 End: 08-70-9826ocyu 1 tablet by mouth twice dailyamoxicillin-clavulanate potassium (AUGMENTIN) 875-125 mg per tablet Take 1 tablet by mouth two times a day for 7 days. 14 tablet 0 07/22/2023 07/29/2023 ActiveComment on above:Take 1 tablet by mouth two times a day for 7 days.Take 1 tablet by mouth two times a day for 10 days.Vgekejpvcet-Rusyiwbn-Xsoypjbpe 1-0.5-0.075 % solution (16 sources)Start: 10-05-2024 End: 51-28-7427Bzaxpxctjei-Moxiflox-Bromfenac 1-0.5-0.075 % solution Indications: Cortical age-related cataract ofboth eyes Administer 1 drop into affected eye(s) in the morning and 1 drop at noon and 1 drop in the evening and 1 drop before bedtime. 10 mL 1 10/05/2024 07/13/2025 DiscontinuedStart: 92-32-6878Sdrmmqrnjwx-Moxiflox-Bromfenac 1-0.5-0.075 % solution Indications: Cortical age-related cataract ofboth eyes Administer 1 drop into affected eye(s) in the morning and 1 drop at noon and 1 drop in the evening and 1 drop before bedtime. 10 mL 1 10/05/2024 ActiveStart: 10-05-2024 End: 24-24-4669Mfhzqrhwbvx-Moxiflox-Bromfenac 1-0.5-0.075 % solution Indications: Cortical age-related cataract ofboth eyes Administer 1 drop into affected eye(s) in the morning and 1 drop at noon and 1 drop in the evening and 1 drop before bedtime. 10 mL 1 10/05/2024 10/05/2024 Discontinuedsimvastatin 40 mg oral tablet (20 sources)HMG-CoA Reductase InhibitorStart: 85-62-8382aupi 1 tablet by mouth once daily at bedtimesimvastatin (Zocor) 40 MG tablet Indications: Other hyperlipidemia TAKE 1 TABLET BY MOUTH EVERYDAY AT BEDTIME 100 tablet 3 03/17/2025 ActiveStart: 40-03-5751lgub 1 tablet by mouth once daily at bedtime simvastatin (Zocor) 40 MG tablet Indications: Other hyperlipidemia TAKE 1 TABLET BY MOUTH EVERYDAY AT BEDTIME 100 tablet 3 12/22/2023 Activetake 1 tablet by mouth once daily at bedtimesimvastatin (ZOCOR) 40 mg tablet Take 40 mg by mouth daily at bedtime. 0 ActiveComment on above:Take 40 mg by mouth daily at bedtime. tamsulosin hydrochloride 0.4 mg oral capsule (20 sources)alpha-Adrenergic BlockerStart: 05-75-0667nvmb 1 capsule by mouth once daily in the morningtamsulosin (Flomax) 0.4 MG 24 hr capsule Indications: Benign prostatic hyperplasia with weak urinary stream TAKE 1 CAPSULE BY MOUTH EVERY DAY IN THE MORNING 90 capsule 1 07/07/2025 ActiveStart: 55-48-1463hglc 1 capsule by mouth once daily in the morningtamsulosin (Flomax) 0.4 MG 24 hr capsule Indications: Benign prostatic hyperplasia with weak urinary stream TAKE 1 CAPSULE BY MOUTH EVERY DAY IN THE MORNING 100 capsule 3 07/28/2024 Active Start: 37-92-3752zvkp 1 capsule by mouth every twenty-four hours in the morning tamsulosin (Flomax) 0.4 MG 24 hr capsule Indications: Benign prostatic hyperplasia with weak urinary stream Take 1 capsule (0.4 mg) by mouth in the morning. 90 capsule 3 08/01/2023 Activetake 0.4 mg by mouth once dailytamsulosin HCl (TAMSULOSIN ORAL) Take 0.4 mg by mouth once daily. 0 ActiveComment on above: Take 0.4 mg by mouth once daily. Completed/Discontinued Medications MedicationDrug Class(es)DatesSig (Normalized)Sig (Original)ondansetron 4 mg disintegrating oral tablet (2 sources)Serotonin-3 Receptor AntagonistStart: 76-73-9402cksd 1 tablet by mouth every eight hours as neededondansetron orally disintegrating (ZOFRAN ODT) 4 mg disintegrating tablet Take 1 tablet by mouth every 8 hours as needed for nausea/vomiting. 8 tablet 0 02/07/2023 ActiveComment on above:Take 1 tablet by mouth every 8 hours as needed for nausea/vomiting.oxyCODONE hydrochloride 5 mg oral tablet (2 sources)Opioid AgonistStart: 81-37-0702qmvy 1 tablet by mouth every eight hours as needed for painoxyCODONE IR (ROXICODONE) 5 mg immediate release tablet Indications: Acute post-operative pain Take1 tablet by mouth every 8 hours as needed for pain. 10 tablet 0 07/11/2023 ActiveStart: 71-85-6439hxiv 1 tablet by mouth every six hours as needed for painoxyCODONE IR (ROXICODONE) 5 mg immediate release tablet Indications: Nasal obstruction Take 1 tablet by mouth every 6 hours as needed for pain. 10 tablet 0 02/07/2023 ActiveComment on above:Take 1 tablet by mouth every 6 hours as needed for pain.Take 1 tablet by mouth every 8 hours as needed for pain.petrolatum 0.41 mg/mg topical ointment (2 sources)Start: 08-21-2021 End: 42-62-9476gncpi petrolatum (AQUAPHOR ORIGINAL) 41 % topical ointment Apply 1 Inch to affected area five timesdaily. Apply liberally to nostrils and yellow gauze dressings on your ear and nose five times a day. 99 g 1 08/21/2021 10/04/2022 Discontinued (Other)Comment on above:Apply 1 Inch to affected area five times daily. Apply liberally to nostrils and yellow gauze dressings on your ear and nose five times a day.sodium chloride 0.111 meq/ml nasal spray (7 sources)Start: 09-77-7059qmco 2 spray(s) nasal route four times dailysodium chloride (OCEAN NASAL) 0.65 % nasal spray Use 2 Sprays in each nostril four times daily. 60 mL 0 07/11/2023 ActiveStart: 02-07-2023 End: 12-92-4702tuvzwt chloride 0.65 % nasal spray Use 2 Sprays in the nose every 4 hours while awake. 120 mL 0 02/07/2023 03/09/2023 ActiveStart: 10-12-2021 Sodium Chloride 0.9 % soln Use for nasal irrigation as directed. Dispense as 1 L bottles. 2000 mL ActiveComment on above:Use for nasal irrigation as directed. Dispense as 1 L bottles.Use 2 Sprays in the nose every 4 hours while awake.Use 2 Sprays in each nostril four times daily. Problems Active Problems Problem ClassificationProblemDateDocumented DateEpisodic/Chronic Administrative/social admission (4 sources)Patient encounter status; Translations: [Other specified counseling] 45-59-2645DljvzxfaEneeba of head and neck (20 sources)Malignant neoplasm of nasal cavity; Translations: [Carcinoma of nasal cavity]Onset: 536158-21-0355XtuzrpyXuilmokb (5 sources)Bilateral cortical age-related cataract eyes; Translations: [Cortical age-related cataract, bilateral]73-45-5367HryouhaWpggbfsu atherosclerosis and other heart disease (1 source)Coronary atherosclerosis and other heart diseaseOnset: 09-12-2017 Diabetes mellitus without complication (1 source)Other abnormal glucose; Translations: [OTHER ABNORMAL GLUCOSE]Onset: 23-76-5305DgnbolbsRgjvneuaf of lipid metabolism (20 sources)Hyperlipidemia, unspecified; Translations: [Hyperlipidemia]Onset: 217619-17-0019SyjqskfHqscsvicayh of prostate (20 sources)Benign prostatic hyperplasia without lower urinary tract symptoms; Translations: [Weak urinary stream due to benign prostatic hypertrophy]Onset: 08-23-2020 Resolved: 57-25-2118YeqvcweMdnbszmotmycv and screening for infectious disease (6 sources)Needs influenza immunization; Translations: [Encounter for immunization]63-14-9637SoebkjswTwqcw aftercare (1 source)Removal of sutures done; Translations: [Encounter for removal of sutures]85-25-4435LaytixdfCnahg circulatory disease (1 source)Other specified symptoms and signs involving the circulatory and respiratory systems; Translations:[OTH SPEC SX SIGNS INVLV CIRC RS]Onset: 93-96-2567XrlwvovjRinte ear and sense organ disorders (20 sources)Decreased hearing ; Translations: [Unspecified hearing loss, bilateral]Onset: 070133-94-6223CtzwfwiLwemt nervous system disorders (1 source)Other acute postprocedural pain; Translations: [Acute post-operative pain]Onset: 67-68-5643UbjnkqmgFdgzk screening for suspected conditions (not mental disorders or infectious disease) (5 sources)Encounter for screening for malignant neoplasm of prostate; Translations: [Patient encounter status]Onset: 109909-66-2750PxgtijgoByupl upper respiratory disease (2 sources)Stenosis of nasal valve; Translations: [Other specified disorders of nose and nasal sinuses]Onset: 79-26-0575VsywnehnBtfac upper respiratory infections (20 sources)Chronic maxillary sinusitis; Translations: [Chronic ethmoidal sinusitis]Onset: 549017-55-4645NbhiivjDasttj media and related conditions (20 sources)Bilateral chronic serous otitis; Translations: [Chronic serous otitis media, bilateral]Onset: 832248-05-0969LlcbobqLttqsmmwk and history of mental health and substance abuse codes (2 sources)Tobacco use and exposure - yclgbwk22-69-3940LgubvanNofvmfemj and history of mental health and substance abuse codes (4 sources)Tobacco use and exposure - finding; Translations: [Personal history of nicotine dependence]92-91-1624DqtjdkgeSrprlzaozvyi (2 sources)Chronic sphenoidal sinusitis / J32.3(ICD-10)Onset: 09-12-2017 Unclassified (3 sources)Deviated nasal septum / J34.2(ICD-10)Onset: 50-82-9963Kffpvxstdxiu (1 source)Other specified disorders of nose and nasal sinuses / J34.89(ICD-10) Onset: 43-74-2438Zgunfskwmcgc (1 source)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, mid ear, acces sinus / Z85.22(ICD-10)Onset: 44-14-7376Lafbjrpbggyk (3 sources)Chronic maxillary sinusitis / J32.0(ICD-10)Onset: 09-12-2017 Unclassified (2 sources)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)Onset: 03-21-2017 Unclassified (2 sources)Encntr for obs for oth suspected diseases and cond ruled out / Z03.89(ICD-10)Onset: 97-07-4815Oitizsdraxhp (1 source)Chronic ethmoidal sinusitis / J32.2(ICD-10)Onset: 09-12-2017 Unclassified (1 source)Encounter for screening for COVID-19; Translations: [Encounter for screening for COVID-19]Onset: 12-03-2022 Past or Other Problems Problem ClassificationProblemDateDocumented DateEpisodic/ChronicOther acquired deformities (20 sources)Acquired deformity of nose; Translations: [Acquired deformity of nose]Onset: 405616-28-6179AdufygnfYybdz aftercare (20 sources)Surgical follow-up; Translations: [Encounter for follow-up examination after completed treatment for conditions other than malignant neoplasm]Onset: 02-25-2023 Resolved: 43-10-7665ImparjqxSzflk infections; including parasitic (20 sources)Personal history of other infectious and parasitic diseases; Translations: [History of COVID-19]Onset: 666267-25-7459BinyxkkxGadyq non- epithelial cancer of skin (4 sources)Squamous cell carcinoma of skin; Translations: [Squamous cell carcinoma of skin, unspecified]Onset: 20-47-3563ZkgycnnzIxtnd non-traumatic joint disorders (20 sources)Hip pain; Translations: [Pain in left hip]Onset: 05-21-2023 81-18-8131PsaiwtzjPjoua upper respiratory disease (1 source)Deviated nasal septum; Translations: [Deviated nasal septum]Onset: 87-24-1316UiwumtogFbdfl upper respiratory disease (20 sources)Nasal obstruction; Translations: [Other specified disorders of nose and nasal sinuses]Onset: 405923-13-3724TgafkavrQlqns upper respiratory disease (1 source)Other specified disorders of nose and nasal sinuses; Translations: [Nasal obstruction]Onset: 45-24-5508MlqmzwraLieyxkfsceut (1 source)Encntr for obs for oth suspected diseases and cond ruled out; Translations: [Encntr for obs for othsuspected diseases and cond ruled out] Onset: 03-21-2017 Results Test NameValueInterpretationReference RangeFacilityCBC (INCLUDES DIFF/PLT)on 47-89-1492Rrgqthvhy (Bld) [#/Vol]0.039 10*3/uLNormal0-200[facility] Comment on above:Performed By: #### 6399, 7600, 25374 #### [facility] [place] [address] [employer]: Yousuf Boone MDBasophils/100 WBC (Bld)0.5 %NormalQuest DiagnosticsComment on above:Performed By: #### 6399, 7600, 56871 #### [facility] [place] [address] [employer]isher: Yousuf Boone MDEosinophils (Bld) [#/Vol]0.308 10*3/uLNormal 15-500Quest DiagnosticsComment on above:Performed By: #### 6399, 7600, 94274 #### [facility] [place] [address] [employer] Finisher: Yousuf Boone MDEosinophils/100 WBC (Bld)4.0 %NormalQuest DiagnosticsComment on above:Performed By: #### 6399, 7600, 83394 #### [facility] [place] [address] [employer]isher: Yousuf Boone MDErythrocyte distribution width (RBC) [Ratio] 13.4 %Hbcivn21.0-15.0[facility] DiagnosticsComment on above:Performed By: #### 6399, 7600, 68787 #### [facility] [place] [address] [employer] Finisher: Yousuf Boone MDHematocrit (Bld) [Volume fraction]46.2 %Normal 38.5-50.0[facility] DiagnosticsComment on above:Performed By: #### 6399, 7600, 40538 #### [facility] [place] [address] [employer]isher: Yousuf Boone MDHemoglobin (Bld) [Mass/Vol]15.4 g/dLNormal 13.2-17.1[facility] DiagnosticsComment on above:Performed By: #### 6399, 7600, 72753 #### [facility] of [address], [address] [place] [address] [employer] Finisher: Yousuf Boone MDLymphocytes (Bld) [#/Vol]2.133 10*3/uLNormal 850-3900Quest DiagnosticsComment on above:Performed By: #### 6399, 7600, 87928 #### [facility] of [address], [address] [place] [address] [employer]oline Finisher: Yousuf Boone MDLymphocytes/100 WBC (Bld)27.7 %NormalQuest DiagnosticsComment on above:Performed By: #### 6399, 7600, 23117 #### [facility] [place] [address] [employer]isher: Yousuf Boone MDMCH (RBC) [Entitic mass]29.6 niZazyst45.0-33.0 [facility]osticsComment on above:Performed By: #### 6399, 7600, 64641 #### [facility] [place] [address] [employer]isher: Yousuf Boone MDMCHC (RBC) [Mass/Vol]33.3 g/xAYcibkv34.0-36.0 [facility]osticsComment on above:Result Comment: For adults, a slight decrease in the calculated MCHC value (in the range of 30 to 32 g/dL) is most likely not clinically significant; however, it should be interpreted with caution in correlation with other red cell parameters and the patient's clinical condition.Performed By: #### 6399, 7600, 06003 #### [facility] of [address], [address] [place] [address] [employer]oline Finisher: Yousuf Boone MDMCV (RBC) [Entitic vol]88.8 uIDdhzbc97.0-100.0 [facility]osticsComment on above:Performed By: #### 6399, 7600, 96337 #### [facility] of [address], [address] [place] [address] [employer]oline Finisher: Yousuf Boone MDMonocytes (Bld) [#/Vol]0.377 10*3/uLNormal 200-950Quest DiagnosticsComment on above:Performed By: #### 6399, 7600, 82162 #### [facility] of [address], [address] [place] [address] [employer] Finisher: Yousuf Boone MDMonocytes/100 WBC (Bld)4.9 %NormalQuest DiagnosticsComment on above:Performed By: #### 6399, 7600, 69282 #### [facility] of [address], [address] [place] [address] [employer] Finisher: Yousuf Boone MDNeutrophils (Bld) [#/Vol]4.843 10*3/uLNormal 1500-7800Quest DiagnosticsComment on above:Performed By: #### 6399, 7600, 18558 #### [facility] of [address], [address] [place] [address] [employer]oline Finisher: Yousuf Boone MDNeutrophils/100 WBC (Bld)62.9 %NormalQuest DiagnosticsComment on above:Performed By: #### 6399, 7600, 81763 #### [facility] of [address], [address] [place] [address] [employer] Finisher: Yousuf Boone MDPlatelet mean volume (Bld) [Entitic vol]11.2 fLNormal7.5-12.5Quest DiagnosticsComment on above:Performed By: #### 6399, 7600, 11038 #### [facility] of [address], [address] [place] [address] [employer] Finisher: Yousuf NGUYENlatejewish healthcare [facility] ([facility]) [#/Vol]176 10*3/uLNormal 140-400Quest DiagnosticsComment on above:Performed By: #### 6399, 7600, 02658 #### [facility] of [address], [address] [place] [address] [employer] Finisher: Yousuf Boone MDRBC ([facility]) [#/Vol]5.20 10*6/uLNormal4.20-5.80 [facility]osticsComment on above:Performed By: #### 6399, 7600, 59572 #### [facility] of [address], [address] [place] [address] [employer] Finisher: Yousuf Boone MDW ([facility]) [#/Vol]7.7 10*3/uLNormal3.8-10.8 [facility]osticsComment on above:Performed By: #### 6399, 7600, 18433 #### [facility] of [address], [address] [place] [address] [employer] Finisher: Yousuf Boone MDCOMPREHENSIVE METABOLIC PANELon 07-14-2025 Albumin [Mass/Vol]4.7 g/dLNormal3.6-5.1Quest DiagnosticsComment on above: Performed By: #### 6399, 7600, 49958 #### [facility] of [address], [address] [place] [address] [employer]isher: Yousuf Boone MDAlbumin/Globulin [Mass ratio]2.1 {ratio}Normal 1.0-2.5Quest DiagnosticsComment on above:Performed By: #### 6399, 7600, 53349 #### [facility] of [address], [address] [place] [address] [employer] Finisher: Yousuf Boone MDALP [Catalytic activity/Vol]76 U/WKyoqql82-644 [facility]osticsComment on above:Performed By: #### 6399, 7600, 88828 #### [facility] of [address], [address] [place] [address] [employer]oline Finisher: Yousuf Boone MDALT [Catalytic activity/Vol]24 U/LNormal9-46 [facility]osticsComment on above:Performed By: #### 6399, 7600, 14679 #### [facility] of [address], [address] [place] [address] [employer]oline Finisher: Yousuf Boone MDAST [Catalytic activity/Vol]18 U/UYvbhlf87-92 [facility]osticsComment on above:Performed By: #### 6399, 7600, 35576 #### [facility] of [address], [address] [place] [address] [employer] Finisher: Yousuf Boone MDBilirubin [Mass/Vol]0.4 mg/dLNormal0.2-1.2 [facility]osticsComment on above:Performed By: #### 6399, 7600, 07581 #### [facility] of [place] [address] [employer]isher: Yousuf Boone MDBUN/CREATININE RATIOSEE NOTE:Normal6-22[facility] DiagnosticsComment on above:Result Comment: Not Reported: BUN and Creatinine are within reference range.Performed By: #### 6399, 7600, 54247 #### [facility] of [address], [address] [place] [address] [employer] Finisher: Yousuf Boone MDCalcium [Mass/Vol]9.7 mg/dLNormal8.6-10.3[facility] DiagnosticsComment on above:Performed By: #### 6399, 7600, 78072 #### [facility] of [address], [address] [place] [address] [employer] Finisher: Yousuf Boone MDChloride [Moles/Vol]104 mmol/VKutgow29-027 [facility]osticsComment on above:Performed By: #### 6399, 7600, 81735 #### [facility] of [address], [address] [place] [address] [employer] Finisher: Yousuf Boone MDCO2 [Moles/Vol]28 mmol/NHvguwr78-21Clwlq DiagnosticsComment on above:Performed By: #### 6399, 7600, 96024 #### [facility] of [address], [address] [place] [address] [employer]oline Finisher: Yousuf HALLreatinine [Mass/Vol]0.94 mg/dLNormal0.70-1.28 [facility] DiagnosticsComment on above:Performed By: #### 6399, 7600, 02726 #### [facility] of [address], [address] [place] [address] [employer] Finisher: Yousuf Boone MDGFR/1.73 sq M.predicted among non-blacks MDRD (S/P/Bld) [Vol rate/Area]87 mL/min/{1.73_m2}Normal> OR = 60[facility] Comment on above:Performed By: #### 6399, 7600, 71300 #### [facility] [place] [address] [employer] Finisher: Yousuf Boone MDGlobulin (S) [Mass/Vol]2.2 g/dLNormal1.9-3.7 [facility]osticsComment on above:Performed By: #### 6399, 7600, 51111 #### [facility] of [place] [address] [employer] Finisher: Yousuf Boone MDGlucose [Mass/Vol]84 mg/xBSwnsig18-97Igelg DiagnosticsComment on above:Result Comment: Fasting reference intervalPerformed By: #### 6399, 7600, 22322 #### [facility] of [place] [address] [employer] Finisher: Yousuf Boone MDPotassium [Moles/Vol]4.2 mmol/LNormal3.5-5.3 [facility]osticsComment on above:Performed By: #### 6399, 7600, 75415 #### [facility] of [address], [address] [place] [address] [employer]oline Finisher: Yousuf Boone MDProtein [Mass/Vol]6.9 g/dLNormal6.1-8.1Quest DiagnosticsComment on above:Performed By: #### 6399, 7600, 36852 #### [facility] of [address], [address] [place] [address] [employer] Finisher: Yousuf Boone MDSodium [Moles/Vol]140 mmol/LMfskui584-209Ywots DiagnosticsComment on above:Performed By: #### 6399, 7600, 76641 #### [facility] of [address], [address] [place] [address] [employer] Finisher: Yousuf Boone MDUrea nitrogen [Mass/Vol]16 mg/dLNormal7-25 [facility]osticsComment on above:Performed By: #### 6399, 7600, 34264 #### [facility] of [address], [address] [place] [address] [employer] Finisher: Yousuf Boone MDLIPID PANEL, [facility] 03-93-9678Xpwcbysjngt [Mass/Vol]161 mg/dLNormal<200[facility] DiagnosticsComment on above:Order Comment: FASTING:YES FASTING: YESPerformed By: #### 6399, 7600, 28339 #### [facility] of [address], [address] [place] [address] [employer] Finisher: Yousuf Boone MDCholesterol in HDL [Mass/Vol]67 mg/dLNormal> OR = 40Quest DiagnosticsComment on above:Order Comment: FASTING:YES FASTING: YESPerformed By: #### 6399, 7600, 38894 #### [facility] of [address], [address] [place] [address] [employer] Finisher: Yousuf Boone MDCholesterol in LDL [Mass/Vol]79 mg/dLNormal [facility] DiagnosticsComment on above:Order Comment: FASTING:YES FASTING: YESResult Comment: Reference range: <100 Desirable range <100 mg/dL for primary prevention; <70 mg/dL for patients with CHD or diabetic patients with > or = 2 CHD risk factors. LDL-C is now calculated using the Aixa calculation, which is a validated novel method providing better accuracy than the Friedewald equation in the estimation of LDL-C. Rohan SS et al. TOSHIA. 2013;310(19): 8535-7828 (http://education.iDreamBooks.Flytivity/faq/QDC734)Performed By: #### 6399, 7600, 59899 #### [facility] [address], [address] [place] [address] [employer] Finisher: Yousuf HALLholesterol.total/Cholesterol in HDL [Mass ratio]2.4 {ratio}Normal<5.0Quest DiagnosticsComment on above:Order Comment: FASTING:YES FASTING: YESPerformed By: #### 6399, 7600, 78624 #### [facility] [address], [address] [place] [address] [employer]oline Finisher: Yousuf HOU HDL KGWTNDZRQJT72 mg/dL (calc)Normal<130 [facility] DiagnosticsComment on above:Order Comment: FASTING:YES FASTING: YESResult Comment: For patients with diabetes plus 1 major ASCVD risk factor, treating to a non-HDL-C goal of <100 mg/dL (LDL-C of <70 mg/dL) is considered a therapeutic option.Performed By: #### [id number], 7600, [id number] #### [facility] [address], [address] [place] [address] Gasoline Finisher: Yousuf Boone MDTriglyceride [Mass/Vol]70 mg/dLNormal<150Quest DiagnosticsComment on above:Order Comment: FASTING:YES FASTING: YESPerformed By: #### [id number], 7600, [id number] #### [facility] [address], [address] [place] [address] Gasoline Finisher: Yousuf Boone [facility] SERVICESSA, TOTALkuldeep [id number], TOTAL0.77 ng/mL Normal< OR = 4.00Quest DiagnosticsComment on above:Result Comment: The total PSA value from this assay system is standardized against the WHO standard. The test result will be approximately 20% lower when compared to the equimolar-standardized total PSA ([place]). Comparison of serial PSA results should be interpreted with this fact in mind. This test was performed using the Siemens chemiluminescent method. Values obtained from different assay methods cannot be used interchangeably. PSA levels, regardless of value, should not be interpreted as absolute evidence of the presence or absence of disease.Performed By: #### [id number], 7600, [id number] #### [facility] [address], [address] [place] [address] Gasoline Finisher: Yousuf Boone [facility] [id number] Visit (OTOLMN) ANTWAN FLOWERS ([id number]) 1955 M Date Time Provider Department 08/05/23 11:30 AM ANNABELLE MORIN OTOLMN During your visit today, we recorded the following information about you: Annabelle Morin PA-C 08/07/2023 9:24 AM Addendum SECTION OF FACIAL PLASTIC AND RECONSTRUCTIVE SURGERY Head and Neck [place] Post-operative Visit Date of Service: 08/05/2023 Antwan Flowers is a 68 year old male who presents for 3-week post-op follow-up. SURGERY/PROCEDURE(S): 1. Surgical preparation of wound bed with sharp excision of scar 2. Repair nasal vestibular stenosis 3. Adjacent tissue transfer, thinning and rotation of nasal tip skin, 1.5 cm x 1 cm 4. Adjacent tissue transfer for revision scar left cheek/nasolabial fold, 5 cm x 3 cm 5. Adjacent tissue transfer, left nose (alar base), 2 cm x 4 cm 6. Adjacent tissue transfer, upper lip (philtrum), 3 cm x 4 cm 7. Revision of nasal columella, complex, use of cadaveric costal cartilage to fashion collumellar replacement graft, 3 x 2 cm 8. Placement nasal stent, left SURGERY DATE: 07/11/2023 SURGEON: Lizbeth Garcia MD Subjective: Doing well with no significant concerns since surgery. Pt is satisfied with the nasal shape and function. He states nasal breathing well. Objective: Columellar small wound area covered with crust, dry, no obvious infection signs. Assessment/Plan: - Doing well after surgery - Wound care discussed - Follow up in 3 weeks by sending me photo of nasal columella, then decide next f/u time Annabelle ([facility]) INES MORIN, MPAS, PhD Facial Plastic and Reconstructive Surgery Head and Neck [place] [facility] Sania Rosado 08/05/2023 11:58 AM Signed Tobacco Use: .75 packs/day, for 30 years. Quit 09/22/2014. Types: Cigarettes Was smoking cessation packet given? N/A - Patient is a non-smoker or quit >1 year ago. Was a referral initiated?N/A Patient is a non-smoker Allergies As of Date: 08/05/2023 Noted Allergy Reaction HOUSE DUST 06/26/2021 9 - Itching Date Reviewed: 08/05/2023 Reviewed by: Sania Rosado - Fully Assessed Reason for Visit: Post Op [174] Cmt: Pt states he has no concerns. Primary Visit Diagnosis:Surgical followup visit [Z09] Prescriptions as of 08/07/2023 - tamsulosin HCl (TAMSULOSIN ORAL) Take 0.4 mg by mouth once daily. - simvastatin (ZOCOR) 40 mg tablet Take 40 mg by mouth daily at bedtime. 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 Quit 09/22/2014. Types: Cigarettes Was smoking cessation packet given? N/A - Patient is a non-smoker or quit >1 year ago. Was a referral initiated?N/A Patient is a non-smoker Medications Discontinued During This Encounter Prescriptions - ondansetron orally disintegrating (ZOFRAN ODT) 4 mg disintegrating tablet (Discontinued) Take 1 tablet by mouth every 8 hours as needed for nausea/vomiting. - oxyCODONE IR (ROXICODONE) 5 mg immediate release tablet (Discontinued) Take 1 tablet by mouth every 8 hours as needed for pain. - sodium chloride (OCEAN NASAL) 0.65 % nasal spray (Discontinued) Use 2 Sprays in each nostril four times daily. Encounter Status:Closed by ANNABELLE MORIN on 08/05/23[facility] [id number] Visit (OTOLMN) ANTWAN FLOWERS ([id number]) 1955 M Date Time Provider Department 07/21/23 2:00 PM NURSE FACIAL PLASTICS OTOLMN During your visit today, we recorded the following information about you: Sania Rosado 07/22/2023 8:16 AM Signed Tobacco Use: .75 packs/day, for 30 years. Quit 09/22/2014. Types: Cigarettes Was smoking cessation packet given? N/A - Patient is a non-smoker or quit >1 year ago. Was a referral initiated?N/A Patient is a non-smoker Lu Elliott RN 07/21/2023 2:49 PM Addendum The left nasolabial fold suture (site) was assessed and sutures were removed as ordered. No dressing required. Patient instructed on wound care and verbalized understanding. Dr. Astorga present and removed columellar sutures and suture securing [address] Astorga removed nasal trumpet, assessed site and provided pt with recommendations regarding wound care. Pt verbalized understanding. Photos of columella sent to Dr. Garcia for further recommendations. Dr. Astorga provided pt with trimmed nasal trumpet with directions to use as nasal stent. Pt verbalized understanding. Lu Elliott RN 07/21/2023 3:19 PM Signed Spoke with Dr. Garcia, recommends additional 1 week of Augmentin, keep site clean with soapy water and Aquaphor three time sdaily, and follow up in 2 weeks, preferably in-person. Spoke with patient, identified by name and . Relayed Dr. Garcia's recommendations. Pt verbalized understanding. Let pt know our administrative tech will reach out to help schedule follow up. Referring Provider: LIZBETH GARCIA [[id number]] Allergies As of Date: 07/21/2023 Noted Allergy Reaction HOUSE DUST 06/26/2021 9 - Itching Date Reviewed: 07/21/2023 Reviewed by: Sania Rosado - Fully Assessed Reason for Visit: Post Op [174] Cmt: Pt states he is getting sutures removed today. Primary Visit Diagnosis:Visit for suture removal [Z48.02] Order(s):amoxicillin-clavulanate potassium (AUGMENTIN) 875-125 mg per tabletTake 1 tablet by mouth two times a day for 7 days.Disp: 14 tabletRfl: 0 Prescriptions as of 07/22/2023 - amoxicillin-clavulanate potassium (AUGMENTIN) 875-125 mg per tablet Take 1 tablet by mouth two times a day for 7 days. - sodium chloride (OCEAN NASAL) 0.65 % nasal spray Use 2 Sprays in each nostril four times daily. - oxyCODONE IR (ROXICODONE) 5 mg immediate release tablet Take 1 tablet by mouth every 8 hours as needed for pain. - ondansetron orally disintegrating (ZOFRAN ODT) 4 mg disintegrating tablet Take 1 tablet by mouth every 8 hours as needed for nausea/vomiting. - tamsulosin HCl (TAMSULOSIN ORAL) Take 0.4 mg by mouth once daily. - simvastatin (ZOCOR) 40 mg tablet Take 40 mg by mouth daily at bedtime. 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 No dressing required. Patient instructed on wound care and verbalized understanding. Dr. Astorga present and removed columellar sutures and suture securing [address] Astorga removed nasal trumpet, assessed site and provided pt with recommendations regarding wound care. Pt verbalized understanding. Photos of columella sent to Dr. Garcia for further recommendations. Dr. Astorga provided pt with trimmed nasal trumpet with directions to use as nasal stent. Pt verbalized understanding. >> Lu Elliott RN Mon Jul 21, 2023 3:07 PM Status: Signed Spoke with Dr. Garcia, recommends additional 1 week of Augmentin, keep site clean with soapy water and Aquaphor three time sdaily, and follow up in 2 weeks, preferably in-person. Spoke with patient, identified by name and . Relayed Dr. Garcia's recommendations. Pt verbalized understanding. Let pt know our administrative tech will reach out to help schedule follow up. Prescriptions ordered this encounter Disp Refills Start End AMOXICILLIN 875 MG-POTASSIUM CLAVULA* 14 t* 0 07/22/2023 07/29/2023 Route: ORAL Sig: Take 1 tablet by mouth two times a day for 7 days. Medications Discontinued During This Encounter Prescriptions - amoxicillin-clavulanic acid (AUGMENTIN) 875-125 mg per tablet (Discontinued) Take 1 tablet by mouth two times a day for 10 days. Encounter Status:Closed by LU ELLIOTT on 07/22/23[facility] POSTPROC EVALon [id number] POSTPROC EVALHNO ID: [id number] Author: Mello Camara DO Service: Anesthesiology Author Type: Anesthesiologist Type: Anesthesia Postprocedure Evaluation Filed: 07/11/2023 12:01 PM Note Text: POST ANESTHESIA EVALUATION NOTE : 1955 Procedure Summary Date: 07/11/23 Room / Location: OR / OR Anesthesia Start: 732 Anesthesia Stop: 1100 Procedures: Staged nasal reconstruction after skin cancer (Left: Face) Left nasal repair with adjacent tissue transfer, debulking and rotation (Left: Face) Nasal columella reconstruction with cadaveric vs autologous cartilage (Left: Face) Nasolabial rotation flap for lip / cheek reconstruction (Left: Face) Excision nasal and cheek scar (Left: Face) Diagnosis: Skin cancer Nasal valve stenosis (Skin cancer [C44.90]) (Nasal valve stenosis [J34.89]) Surgeons: Lizbeth Garcia MD Responsible Provider: Mello Camara DO Anesthesia Type: general ASA Status: 3 Anesthesia Type: general Airway Type: ETT Last Vitals Vitals Value Taken Time BP 109/69 07/11/23 1150 Temp 36.8 ?C (98.3 ?F) 07/11/23 1100 Pulse 56 07/11/23 1159 Resp 21 07/11/23 1159 SpO2 91 % 07/11/23 1159 Vitals shown include unvalidated device data. Post Anesthesia Patient Status Patient Evaluation: PACU. PACU/ICU Patient Condition: stable. Anticipated Disposition: phase 2 then home. Neurological Status: aware and responsive. Pulmonary Status: breathing comfortably on room air Airway Control: returned to baseline unsupported. Cardiovascular Status: stable. Pain Management: clinically adequate Postoperative Hydration: acceptable. Intraoperative Events: no significant anesthesia events Post Operative Nausea/Vomiting Status: no significant post operative nausea or vomiting Recommendation: further care per PACU/ICU/floor team. Anesthesia Observations No Documentation SIGNATURE: Mello Caamra DO PATIENT NAME: Antwan Flowers DATE: July 11, 2023 TIME: 12:01 PM [facility] [id number] PRE-OPon [id number] PRE-OPHNO ID: [id number] Author: Mello Camara DO Service: Anesthesiology Author Type: Anesthesiologist Type: Anesthesia Preprocedure Evaluation Filed: 07/11/2023 7:19 AM Note Text: ANESTHESIOLOGY DAY OF SURGERY NOTE : 1955 Procedure Information Date/Time: 07/11/23729 Procedures: Staged nasal reconstruction after skin cancer (Left: Face) Left nasal repair with adjacent tissue transfer, debulking and rotation (Left: Face) Nasal columella reconstruction with cadaveric vs autologous cartilage (Left: Face) Nasolabial rotation flap for lip / cheek reconstruction (Left: Face) Excision nasal and cheek scar (Left: Face) Location: AV OR04 / AV OR Surgeons: Lizbeth Garcia MD Estimated body mass index is 26.61 kg/m? as calculated from the following: Height as of this encounter: 172.7 cm (5' 8 ). Weight as of this encounter: 79.4 kg (175 lb). Most recent hematocrit and potassium results: Hematocrit 43.9 10/11/2022 Potassium 4.4 10/11/2022 Relevant Problems NEURO-PSYCH (+) History of COVID-19 PULMONARY (+) History of COVID-19 ENT (+) Nasal obstruction Oncology (+) Skin cancer I - PHYSICAL EVALUATION AIRWAY Patient intubated: No. Tracheostomy tube not present Mallampati: III. TM distance: >3 FB. Neck ROM: full ROM without neurological symptoms. Mouth opening: adequate. Short neck: no. Thick neck: no DENTAL Dental findings: teeth intact. II - ANESTHESIA PLAN ASA Score: 3 Anesthetic Plan: general Airway type: ETT The patient is a current smoker. NPO Status: adequate Beta Bryson Monitoring Plan Monitoring plan: standard ASA. Post Procedure Analgesic Plan Postoperative analgesic plan: parenteral or oral opioids, multimodal analgesia and per surgical service. Informed Consent Anesthetic risks, benefits, alternatives, personnel and consent discussed: yes. Patient / Responsible Alliance Party agrees to proceed: yes Patient / Surrogate agrees to blood products: Yes DNR status not reviewed with patient and/or family prior to surgery. Significant changes in the patient condition since the History and Physical, not otherwise documented in primary service progress note: no. Potential Anesthesia issues that may suggest increased risk of complications or contraindication to planned procedure: none. Vitals Value Taken Time BP 163/101 07/11/23704 Pulse Resp 16 07/11/23704 Temp 36.3 ?C (97.3 ?F) 07/11/23704 SpO2 99 % 07/11/23704 Facility-Administered Medications as of 07/11/2023 Medication Dose Route Frequency - lidocaine (PF) 10 mg/mL (1 %) 1-2 mg injection (XYLOCAINE) 0.1-0.2 mL INTRADERMAL PRN - NaCl 0.9% iv flush bag 20 mL INTRAVENOUS PRN - ceFAZolin iv piggyback 2 g in D5W (iso-osmotic) 100 mL (ANCEF) 2 g INTRAVENOUS Pre-Op Once - acetaminophen 1,000 mg tab(s) (TYLENOL) 1,000 mg ORAL Pre-Op Once - promethazine 12.5 mg tab(s) (PHENERGAN) 12.5 mg ORAL Pre-Op Once - lactated ringers iv infusion 30 mL/hr INTRAVENOUS CONTINUOUS Outpatient Medications as of 07/11/2023 Medication Sig - tamsulosin HCl (TAMSULOSIN ORAL) Take 0.4 mg by mouth once daily. - simvastatin (ZOCOR) 40 mg tablet Take 40 mg by mouth daily at bedtime. - [] sodium chloride 0.65 % nasal spray Use 2 Sprays in the nose every 4 hours while awake. - ondansetron orally disintegrating (ZOFRAN ODT) 4 mg disintegrating tablet Take 1 tablet by mouth every 8 hours as needed for nausea/vomiting. - oxyCODONE IR (ROXICODONE) 5 mg immediate release tablet Take 1 tablet by mouth every 6 hours as needed for pain. I have interviewed and examined the patient. I have reviewed the medical record and/or the pre-anesthesia evaluation, pertinent labs, and test results. This contains updated information obtained within 48 hours of Surgery/Procedure. SIGNATURE: Mello Camara DO PATIENT NAME: Antwan Flowers DATE: July 11, 2023 TIME: 7:17 AM [facility]: [id number] NOTon [id number] OP NOTHNO ID: [id number] Author: Josue Astorga MD Service: Otolaryngology Author Type: Resident Type: Brief Op Note Filed: 07/11/2023 11:08 AM Note Text: BRIEF OPERATIVE / PROCEDURE NOTE LOG ID: [id number] SURGERY/PROCEDURE DATE: 07/11/2023 INCISION/PROCEDURE START TIME: 8:28 AM INCISION CLOSE/PROCEDURE END TIME: 10:45 AM SURGEON(S)/PROCEDURALIST(S) AND BELL STAFF(S): Surgeon(s) and Role: * Lizbeth Garcia MD - Primary * Josue Astorga MD - Resident - Assisting No Additional Staff SURGERY/PROCEDURE(S): 1) Revision nasal reconstruction, local tissue transfer ANESTHESIA: General FINDINGS: See full operative report ESTIMATED BLOOD LOSS: 15 mL SPECIMENS: * No specimens in log * COMPLICATIONS: None CLOSURE TECHNIQUE: Primary PRE-OP/PRE-PROCEDURE DIAGNOSIS: History of nasal reconstruction POST-OP/POST-PROCEDURE DIAGNOSIS: Same as Preop SIGNATURE: Josue Astorga MD PATIENT NAME: Antwan Flwoers DATE: July 11, 2023 TIME: 11:07 [facility] PHYSICALon [id number] PHYSICAL HNO ID: [id number] Author: Josue Astorga MD Service: Otolaryngology Author Type: Resident Type: HANDP Filed: 07/11/2023 7:28 AM Note Text: Attestation signed by Lizbeth Garcia MD at 07/12/2023 3:45 PM Attending Addendum I saw the patient with the resident or fellow. I examined the patient and agree with the note. [facility] OT[facility] - HEAD AND NECK SURGERY HISTORY AND PHYSICAL PAGE [id number] AFTER 1700 AND ON WEEKENDS Patient Name: Antwan Flowers Age: [age] year old Sex: male Date: 07/11/2023 ASSESSMENT/PLAN Antwan Flowers is a 68 year old male here for OR. Discussed goals in detail which includes improved symmetric of nares, infratip fullness and nasolabial fold revision. Consent signed. SUBJECTIVE Chief Complaint: Nasal deformity HPI: Antwan Flowers is a 68 year old male with a history relevant for nasal stenosis who presents for reconstruction. No changes in history. Discussed goals. Past Medical History: PAST MEDICAL HISTORY Diagnosis Date Coronary artery disease 09/12/2017 patient denies this HLD (hyperlipidemia) Past Surgical History: PAST SURGICAL HISTORY Procedure Laterality Date APPENDECTOMY HX in 8th grade PAST SURGICAL HISTORY OF 2014 Removal of cancer in sinuses PAST SURGICAL HISTORY OF Left 1996 patella tendon reattachment PAST SURGICAL HISTORY OF multiple reconstructions for nasal/sinus PAST SURGICAL HISTORY OF 2018 colonoscopy SEPTOPLASTY 2018 Medications AND Allergies: Prior to Admission Medications Prescriptions Last Dose Informant Patient Reported? Taking? ondansetron orally disintegrating (ZOFRAN ODT) 4 mg disintegrating tablet No No Sig: Take 1 tablet by mouth every 8 hours as needed for nausea/vomiting. oxyCODONE IR (ROXICODONE) 5 mg immediate release tablet No No Sig: Take 1 tablet by mouth every 6 hours as needed for pain. simvastatin (ZOCOR) 40 mg tablet 07/10/2023 Yes Yes Sig: Take 40 mg by mouth daily at bedtime. tamsulosin HCl (TAMSULOSIN ORAL) 07/10/2023 Yes Yes Sig: Take 0.4 mg by mouth once daily. Facility-Administered Medications: None ALLERGIES Allergen Reactions House Dust Itching Social History: Social History Tobacco Use Smoking status: Former Packs/day: 0.75 Years: 30.00 Additional pack years: 0.00 Total pack years: 22.50 Types: Cigarettes Start date: 09/22/1989 Quit date: 09/22/2014 Years since quittin.8 Smokeless tobacco: Never Vaping Use Vaping Use: Never used Substance Use Topics Alcohol use: Yes Comment: once per month or less Drug use: Not Currently Family History: Family History Problem Relation Age of Onset Heart Father CABG later in life Anesthesia Problems No Family History Malig Hyperthermia No Family History Review of Systems: As per HPI OBJECTIVE Vitals: 07/11/23 0705 BP: 163/101 Resp: 16 Temp: 36.3 ?C (97.3 ?F) TempSrc: Temporal SpO2: 99% Weight: 79.4 kg (175 lb) Height: 172.7 cm (5' 8 ) Physical Examination: Heart: RRR, S1/S2, no extrasystolic murmurs appreciated Lungs: normal WOB, CTAB bilaterally LABS Blood:No results for input(s): WBC , HB , HCT , PLT , MCV , MCH , MCHC , RDWCV , MPV , NEUTP , LYMPHP , MONOP , EODINP , BASOP , ABSNEUT , ABSLYM , ABSMONO , ABSEOSIN , ABSBASO in the last 72 hours. No results for input(s): NA , K , CHLOR , CO2 , BUN , CREAT , GLUC , CA , MG , P in the last 72 hours. Josue Astorga MD Otolaryngology - Head and Neck Surgery Resident, PGY-5 Personal Pager #: [phone] PLEASE PAGE [phone] BETWEEN [phone], AND ON WEEKENDS AND [facility] PHYSICALH[facility] ID: [id number] Author: Rupinder Cardenas PA-C Service: Anesthesiology Author Type: Physician Count Team Clerk Type: HANDP Filed: 07/11/2023 7:21 AM Note Text: Preoperative HISTORY AND PHYSICAL EXAM SERVICE DATE: 07/11/2023 SERVICE TIME: 7:15 AM Assessment/Plan Skin cancer - surgery scheduled today former smoker - quit smoking 2015, 0.75 ppd x 30 years HLD - stable continue medications- simvastatin (Zocor) Airway: METS: Climb a flight of stairs or walk up a hill (5.50 METs) Patient denies any chest pain or undue shortness of breath with the above physical activity. ANESTHESIA FINDINGS: Intubation History: No history of difficult intubation Significant Anesthesia Considerations: None and Difficult IV/Vein Access: No issues today Airway Exam: General: Normal appearance Mallampati Score is CLASS II Neck: Normal appearance and function, Distance from hyoid to mentum during neck extension is at least 3 finger breaths Mouth: Normal tongue size and Mouth opening greater than 2 finger breaths Dentition: Intact Airway History: No abnormal airway history STOP BANG Score: Criteria: Age over 50 (68 year old) Male gender Score = 2 Subjective: CC: Skin Cancer HPI: Patient is a 68 year old male presenting to pre-anesthesia consultation. Patient has had multiple reconstruction surgeries and radiation to the nose due to skin cancer. Last surgery was January 2023. Denies any symptoms or pain today. He has been diagnosed with skin cancer and has been recommended for staged nasal reconstruction after skin cancer - Left to be done today. PAST MEDICAL HISTORY Diagnosis Date Coronary artery disease 09/12/2017 patient denies this HLD (hyperlipidemia) PAST SURGICAL HISTORY Procedure Laterality Date APPENDECTOMY HX in 8th grade PAST SURGICAL HISTORY OF 2014 Removal of cancer in sinuses PAST SURGICAL HISTORY OF Left 1995 patella tendon reattachment PAST SURGICAL HISTORY OF multiple reconstructions for nasal/sinus PAST SURGICAL HISTORY OF 2018 colonoscopy SEPTOPLASTY 2018 FAMILY HISTORY Problem Relation Age of Onset Heart Father CABG later in life Anesthesia Problems No Family History Malig Hyperthermia No Family History Social History Tobacco Use Smoking status: Former Packs/day: 0.75 Years: 30.00 Additional pack years: 0.00 Total pack years: 22.50 Types: Cigarettes Start date: 09/22/1989 Quit date: 09/22/2014 Years since quittin.8 Smokeless tobacco: Never Vaping Use Vaping Use: Never used Substance Use Topics Alcohol use: Yes Comment: once per month or less Drug use: Not Currently No current facility-administered medications on file prior to encounter. Current Outpatient Medications on File Prior to Encounter Medication Sig tamsulosin HCl (TAMSULOSIN ORAL) Take 0.4 mg by mouth once daily. simvastatin (ZOCOR) 40 mg tablet Take 40 mg by mouth daily at bedtime. ondansetron orally disintegrating (ZOFRAN ODT) 4 mg disintegrating tablet Take 1 tablet by mouth every 8 hours as needed for nausea/vomiting. oxyCODONE IR (ROXICODONE) 5 mg immediate release tablet Take 1 tablet by mouth every 6 hours as needed for pain. ALLERGIES Allergen Reactions House Dust Itching REVIEW OF SYSTEMS GENERAL: No weight loss, malaise or fevers NEURO: No history of headaches, syncope, paralysis, seizures or tremors RESPIRATORY: +former smoker Negative for cough, hemoptysis, wheezing, COPD, dyspnea or shortness of breath CARDIOVASCULAR: +HLD Negative for chest pain, leg swelling, hypertension, CHF or palpitations GI: No nausea, vomiting, or diarrhea : +BPH No history of dysuria, frequency or incontinence ENDOCRINE: Negative for cold or heat intolerance, polyuria, polydipsia and goiter HEMATOLOGY/LYMPHOLOGY: Negative for prolonged bleeding, bruising easily or swollen nodes SKIN: Negative for rashes Objective BP 163/101 Temp (Src) 97.3 (Temporal) Resp 16 Ht 5' 8 (1.73m) Wt 175 lb (79.4kg) SpO2 99% BMI 26.61 kg/(m2). O2 Therapy: Room Air PHYSICAL EXAM: The remainder of the physical exam is noncontributory. GENERAL: Alert and oriented SKIN: Normal color, no rash, no lesions. LUNGS: Lungs clear to auscultation, Good diaphragmatic excursion CARDIAC: Normal S1 and S2; no rubs, murmurs, or gallops, RRR NEUROLOGICAL: Normal cognition and motor skills. Diagnostic tests reviewed for today's visit: Lab Value Units Date High Low HB No results within date range. HCT No results within date range. WBC No results within date range. PLT No results within date range. NA No results within date range. K No results within date range. GLUC No results within date range. BUN No results within date range. CREAT No results within date range. PTSEC No results within date range. INR No results within date range. APTT No results within date range. ALT No results within date range. AST No results within date range. (more content not included)...[facility] [id number] NOHNO ID: [id number] Author: Lizbeth Garcia MD Service: Otolaryngology Author Type: Physician Type: Operative Report Filed: 07/22/2023 11:16 AM Note Text: OPERATIVE/PROCEDURE REPORT LOG ID: [id number] SURGERY/PROCEDURE DATE: 07/11/2023 INCISION/PROCEDURE START TIME: 8:28 AM INCISION CLOSE/PROCEDURE END TIME: 10:45 AM SURGEON(S)/PROCEDURALIST(S) AND BELL STAFF(S): Surgeon(s) and Role: * Lizbeth Garcia MD - Primary * Josue Astorga MD - Resident - Assisting No Additional Staff SURGERY/PROCEDURE(S): 1. Surgical preparation of wound bed with sharp excision of scar 2. Repair nasal vestibular stenosis 3. Adjacent tissue transfer, thinning and rotation of nasal tip skin, 1.5 cm x 1 cm 4. Adjacent tissue transfer for revision scar left cheek/nasolabial fold, 5 cm x 3 cm 5. Adjacent tissue transfer, left nose (alar base), 2 cm x 4 cm 6. Adjacent tissue transfer, upper lip (philtrum), 3 cm x 4 cm 7. Revision of nasal columella, complex, use of cadaveric costal cartilage to fashion collumellar replacement graft, 3 x 2 cm 8. Placement nasal stent, left FINDING: Persistent left cicatricial nasal valve stenosis. Mild lateral and inferiorly positioned left alar base. Thickened left nasal ala compared to the right. Left deviation of the nasal tip. Thin and cartilage-deficient nasal columella with deviation to the left, anteriorly. Horizontally oriented left naris, stenotic. Infra tip fullness with hanging infra tip lobule due to soft tissue thickening. Malpositioned left nasolabial fold. 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 He presents today for planned subsequent stage in multi-stage procedure for left cicatricial nasal valve stenosis.preoperatively, the patient made it clear that he would like to proceed with an option as least likely to require further stages or the need for autologous graft harvest. His primary goal was to address nostril asymmetry and tip fullness. The risks, benefits and alternatives to surgery were discussed and she signed the informed consent. SURGERY/PROCEDURE DETAILS: The patient was taken to the operating room and placed supine on the table. The anesthesia team induced a state of general anesthesia and placed an endotracheal tube which was secured to the midline lower lip. The table was rotated 90 degrees. Preoperative planning and incisions were marked meticulously with the use of template. Local with epinephrine with appropriate dilution was infiltrated in the planned areas of incision.The patient was prepped and draped in the usual fashion. BSS was applied to the eyes. The eyes were protected using Steri-Strips and Mastisol. Using a 15 blade, we began by incising the left nasal vestibule and columella. The soft tissue envelope was elevated and even plane taking care to protect the underlying nonanatomic cartilaginous framework. Due to previous radiation therapy and several procedures, this was somewhat difficult. There was significant scarring and post radiative change. Ultimately elevation was achieved. Sharp excision of wound edges was performed as necessary for local tissue rearrangement. At this time the columella was noted to be quite deficient of any cartilaginous structure and primarily composed of soft tissue elements. A caudal septal replacement graft was planned. Due to patient's wishes to forego autologous graft harvest and his age, cadaveric costal cartilage was used. A strong 3 cm long columellar replacement strut was fashioned to the back table. The maxillary spine was dissected and noted to be quite prominent with overlying periosteum and aligned with the central incisors. The graft was secured to the maxillary spine using PDS. This immediately improved both the projection of the nasal tip and straighten the columella. It also improved the external nasal valve asymmetry. At this time we addressed the nasal tip. There is quite prominent inferior tip fullness. Using a combination of sharp excision of the soft tissue overlying the cartilaginous framework and removal of a small amount of cartilaginous tip the area was then adequately and recontoured. Given the soft tissue deficiency in the columella, a flap of soft tissue remained pedicled at the infra tip lobule and was folded as a hinge flap into the columellar area to overlie the cartilaginous replacement graft. Soft tissue camouflage grafts were also fashioned in several areas of nasal tip for appropriate contouring and secured in place with suture. A series of clocking suture techniques were also used to further improve nasal tip and columellar symmetry. Next, a 15 blade was used to make a left booker-neoalar left crease incision that was contiguous with (more content not included)...[facility] [id number] Visit (OTOLMN) ANTWAN FLOWERS ([id number]) 1955 M Date Time Provider Department 02/25/23 11:15 AM LIZBETH GARCIA During your visit today, we recorded the following information about you: Sania Rosado 02/25/2023 11:09 AM Signed Tobacco Use: .75 packs/day, for 30 years. Quit 09/22/2014. Types: Cigarettes Was smoking cessation packet given? N/A - Patient is a non-smoker or quit >1 year ago. Was a referral initiated?N/A Patient is a non-smoker Lizbeth Garcia MD 02/25/2023 2:31 PM Signed SECTION OF FACIAL PLASTIC AND RECONSTRUCTIVE SURGERY Head and Neck [place] Post-operative Visit Date of Service: 02/25/2023 Antwan Flowers is a 67 year old male who presents for 3-week post-op follow-up. SURGERY/PROCEDURE(S): Repair nasal vestibular stenosis Adjacent tissue transfer/rearrangement, left cheek 20 sq cm Adjacent tissue transfer/rearrangement, left nose 10 sq cm Left nasal scar revision, complex, 10 sq cm Postoperative Diagnosis: SCCA (squamous cell carcinoma) of skin History of nasal reconstruction History of head and neck radiation therapy SURGERY DATE: 02/07/2023 SURGEON: Lizbeth Garcia MD Subjective: Doing well with no significant concerns since surgery. Pain under control. Denies symptoms of infection. Objective: Incisions healing well. Expected postop edema. No evidence of infection. Left nasal trumpet removed and check left nostril open, no abnormal drainage or bleeding. Assessment/Plan: - Doing well after surgery - Left nasal trumpet removal - Follow up prn Discussed next surgical options for nasal better symmetry: - readjust nasal alar, balance nasolabial fold. - rebuild nasal columella with nasolabial fold or composite graft Attending Addendum Plan next stage in the fall. Surgical targets: Thin / contour carly ala left side Correct columellar retraction Improve NL fold left side I performed a history and physical examination of the patient and discussed the patient's management with Annabelle MORIN PA-C. I reviewed and edited the PA's note and agree with the documented findings and treatment plan. Lizbeth Garcia MD Facial Plastic and Reconstructive Surgery Head and Neck [place] [facility] Allergies As of Date: 02/25/2023 Noted Allergy Reaction HOUSE DUST 06/26/2021 9 - Itching Date Reviewed: 02/25/2023 Reviewed by: Sania Rosado - Fully Assessed Reason for Visit: Post Op [174] Cmt: Pt states he has no concerns. Primary Visit Diagnosis:Skin cancer [C44.90] Other Visit Diagnoses:Surgical followup visit [Z09] Nasal valve stenosis [J34.89] Order(s):SURGICAL REQUEST - ELECTIVE (04/2020) [[id number]] Order #: [id number]: 1 Prescriptions as of 02/25/2023 - sodium chloride 0.65 % nasal spray Use 2 Sprays in the nose every 4 hours while awake. - ondansetron orally disintegrating (ZOFRAN ODT) 4 mg disintegrating tablet Take 1 tablet by mouth every 8 hours as needed for nausea/vomiting. - oxyCODONE IR (ROXICODONE) 5 mg immediate release tablet Take 1 tablet by mouth every 6 hours as needed for pain. - tamsulosin HCl (TAMSULOSIN ORAL) Take 0.4 mg by mouth once daily. - simvastatin (ZOCOR) 40 mg tablet Take 40 mg by mouth daily at bedtime. 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 Quit 09/22/2014. Types: Cigarettes Was smoking cessation packet given? N/A - Patient is a non-smoker or quit >1 year ago. Was a referral initiated?N/A Patient is a non-smoker Encounter Status:Closed by LIZBETH GARCIA on [facility]/23[facility] [id number] Visit (OTOLMN) ANTWAN FLOWERS ([id number]) 1955 M Date Time Provider Department 02/14/23 12:20 PM ANNABELLE MORIN OTOLMN During your visit today, we recorded the following information about you: Sania Rosado 02/14/2023 12:06 PM Signed Tobacco Use: .75 packs/day, for 30 years. Quit 09/22/2014. Types: Cigarettes Was smoking cessation packet given? N/A - Patient is a non-smoker or quit >1 year ago. Was a referral initiated?N/A Patient is a non-smoker Annabelle Morin PA-C 02/14/2023 12:52 PM Signed SECTION OF FACIAL PLASTIC AND RECONSTRU[facility]IVE [facility] Date of Service: 02/14/2023 Antwan Flowers is a 67 year old male who presents for 1 week post-op follow-up. SURGERY/PROCEDURE(S): Repair nasal vestibular stenosis Adjacent tissue transfer/rearrangement, left cheek 20 sq cm Adjacent tissue transfer/rearrangement, left nose 10 sq cm Left nasal scar revision, complex, 10 sq cm SURGERY DATE: 02/07/2023 SURGEON: Lizbeth Garcia MD Subjective: Doing well with no significant concerns since surgery. Pain under control. Denies symptoms of infection. Objective: Incisions healing well. Expected postop edema. No evidence of infection. Left nasal trumpet in place, no abnormal drainage or bleeding. Assessment/Plan: - Doing well after surgery - Wound care discussed - Removed left facial stitches - Follow up in [address] Garcia for nasal trumpet removal Annabelle (Ceiling) INES MORIN, MPAS, PhD Facial Plastic and Reconstructive Surgery Head and Neck [facility] Referring Provider: LIZBETH GARCIA [[id number]] Allergies As of Date: 02/14/2023 Noted Allergy Reaction HOUSE DUST 06/26/2021 9 - Itching Date Reviewed: 02/14/2023 Reviewed by: Sania Rosado - Fully Assessed Reason for Visit: Post Op [174] Cmt: Pt states he is here to get the tubes our his nose. Primary Visit Diagnosis:Surgical followup visit [Z09] Prescriptions as of 02/14/2023 - sodium chloride 0.65 % nasal spray Use 2 Sprays in the nose every 4 hours while awake. - ondansetron orally disintegrating (ZOFRAN ODT) 4 mg disintegrating tablet Take 1 tablet by mouth every 8 hours as needed for nausea/vomiting. - oxyCODONE IR (ROXICODONE) 5 mg immediate release tablet Take 1 tablet by mouth every 6 hours as needed for pain. - tamsulosin HCl (TAMSULOSIN ORAL) Take 0.4 mg by mouth once daily. - simvastatin (ZOCOR) 40 mg tablet Take 40 mg by mouth daily at bedtime. 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 Quit 09/22/2014. Types: Cigarettes Was smoking cessation packet given? N/A - Patient is a non-smoker or quit >1 year ago. Was a referral initiated?N/A Patient is a non-smoker Disposition: Return in about 1 month (around 03/17/2023) for Follow up in [address] Garcia. Follow-up and Disposition History for Encounter Date Provider Department Center 02/14/2023 [id number] MORIN Bldg Encounter Status:Closed by [facility] [id number] POSTPROC EVALHNO ID: [id number] Author: Christopher Jarrett MD Service: Anesthesiology Author Type: Anesthesiologist Type: Anesthesia Postprocedure Evaluation Filed: 02/07/2023 2:57 PM Note Text: POST ANESTHESIA EVALUATION NOTE : 1955 Procedure Summary Date: 02/07/23 Room / Location: OR03 / AV OR Anesthesia Start: 0738 Anesthesia Stop: 1011 Procedures: REPAIR NASAL VESTIBULAR STENOSIS (Left: Nose) TRANSFER / REARRANGEMENT, ADJACENT TISSUE, LEFT NOSTRIL (Left: Face) Left alar scar revision and adjacent tissue transfer 10 SQ CM OR LESS (Left: Face) CREATION RECIPIENT SITE VIA EXCISION; FACE/EARS/EYES 1ST 100SQCM ADULT (Left: Nose) Diagnosis: SCCA (squamous cell carcinoma) of skin (SCCA (squamous cell carcinoma) of skin [C44.92]) Surgeons: Lizbeth Garcia MD Responsible Provider: Christopher Jarrett MD Anesthesia Type: general ASA Status: 3 Anesthesia Type: general Airway Type: ETT Last Vitals Vitals Value Taken Time BP 128/73 02/07/23 1103 Temp 36.1 ?C (97 ?F) 02/07/23 1013 Pulse 60 02/07/23 1100 Resp 9 02/07/23 1100 SpO2 96 % 02/07/23 1105 Vitals shown include unvalidated device data. Post Anesthesia Patient Status Patient Evaluation: PACU. PACU/ICU Patient Condition: stable. Anticipated Disposition: phase 2 then home. Neurological Status: aware and responsive. Pulmonary Status: breathing comfortably on room air Airway Control: returned to baseline unsupported. Cardiovascular Status: stable. Pain Management: clinically adequate - multimodal analgesia pain management approach Postoperative Hydration: acceptable. Intraoperative Events: no significant anesthesia events Recommendation: continue current plan of care. Anesthesia Observations No Documentation SIGNATURE: Christopher Jarrett MD PATIENT NAME: Antwan Flowers DATE: February 07, 2023 TIME: 2:57 PM [id number] PRE-OPon [id number] PRE-OPHNO ID: [id number] Author: Christopher Jarrett MD Service: Anesthesiology Author Type: Anesthesiologist Type: Anesthesia Preprocedure Evaluation Filed: 02/07/2023 6:50 AM Note Text: ANESTHESIOLOGY DAY OF SURGERY NOTE : 1955 Procedure Information Date/Time: 02/07/23729 Procedures: REPAIR NASAL VESTIBULAR STENOSIS (Left: Nose) TRANSFER / REARRANGEMENT, ADJACENT TISSUE, LEFT NOSTRIL (Left: Face) Left alar scar revision and adjacent tissue transfer 10 SQ CM OR LESS (Left: Face) CREATION RECIPIENT SITE VIA EXCISION; FACE/EARS/EYES 1ST 100SQCM ADULT (Left: Nose) Location: AV OR03 / AV OR Surgeons: Lizbeth Garcia MD Estimated body mass index is 26.61 kg/m? as calculated from the following: Height as of 01/29/23: 172.7 cm (5' 8 ). Weight as of 01/29/23: 79.4 kg (175 lb). Most recent hematocrit and potassium results: Hematocrit 43.9 10/11/2022 Potassium 4.4 10/11/2022 Relevant Problems NEURO-PSYCH (+) History of COVID-19 PULMONARY (+) History of COVID-19 I - PHYSICAL EVALUATION AIRWAY Patient intubated: No. Mallampati: II. TM distance: >3 FB. Neck ROM: full ROM without neurological symptoms. Mouth opening: adequate. Short neck: no. Thick neck: no DENTAL Dental findings: teeth intact. Additional exam findings: no II - ANESTHESIA PLAN ASA Score: 3 Anesthetic Plan: general Airway type: ETT NPO Status: adequate Beta Bryson Monitoring Plan Monitoring plan: Standard ASA. Post Procedure Analgesic Plan Postoperative analgesic plan: parenteral or oral opioids and multimodal analgesia. Patient / Surrogate agrees to blood products: yes DNR status not reviewed with patient and/or family prior to surgery. Significant changes in the patient condition since the History and Physical, not otherwise documented in primary service progress note: no. Potential Anesthesia issues that may suggest increased risk of complications or contraindication to planned procedure: none. Vitals Value Taken Time BP 143/84 02/07/23 0638 Pulse 47 02/07/23 0638 Resp 16 02/07/23 0638 Temp 36.1 ?C (97 ?F) 02/07/23 06 SpO2 97 % 02/07/23 06 Facility-Administered Medications as of 02/07/2023 Medication Dose Route Frequency - NaCl 0.9% iv flush bag 20 mL INTRAVENOUS PRN Outpatient Medications as of 02/07/2023 Medication Sig - tamsulosin HCl (TAMSULOSIN ORAL) Take 0.4 mg by mouth once daily. - simvastatin (ZOCOR) 40 mg tablet Take 40 mg by mouth daily at bedtime. I have interviewed and examined the patient. I have reviewed the medical record and/or the pre-anesthesia evaluation, pertinent labs, and test results. This contains updated information obtained within 48 hours of Surgery/Procedure. SIGNATURE: Christopher Jarrett MD PATIENT NAME: Antwan Flowers DATE: February 07, 2023 TIME: 6:50 AM CS[facility]: [id number] OP NOTon [id number] OP NOTHNO ID: [id number] Author: Jamir Agrawal MD Service: Otolaryngology Author Type: Fellow Type: Brief Op Note Filed: 02/07/2023 10:10 AM Note Text: BRIEF OP NOTE Patient Name: Antwan Flowers Log ID: [id number] Surgery/Procedure Date: 02/07/2023 Incision/Procedure Start Time: 8:29 AM Incision Close/Procedure End Time: 10:02 AM Surgeon(s)/Proceduralist(s) and Count Team Clerk(s): Surgeon(s) and Role: * Lizbeth Garcia MD - Primary * Jamir Agrawal MD - Fellow Procedure(s): REPAIR NASAL VESTIBULAR STENOSIS: 04379 (CPT?) TRANSFER / REARRANGEMENT, ADJACENT TISSUE, LEFT NOSTRIL: 26550 (CPT?) Left alar scar revision and adjacent tissue transfer 10 SQ CM OR LESS: 81379 (CPT?) CREATION RECIPIENT SITE VIA EXCISION; FACE/EARS/EYES 1ST 100SQCM ADULT: 18647 (CPT?) Anesthesia: General Findings: Stenotic left vestibule Estimated Blood Loss: 5 mls Specimens: * No specimens in log * Complications: None Pre-Op/Pre-Procedure Diagnosis: SCCA (squamous cell carcinoma) of skin [C44.92] Post-Op/Post-Procedure Diagnosis: Same SIGNATURE: Jamir Agrawal MD DATE: February 07, 2023 TIME: 10:09 [facility] [id number] NOHNO ID: [id number] Author: Lizbeth Garcia MD Service: Otolaryngology Author Type: Physician Type: Operative Report Filed: 02/12/2023 4:19 PM Note Text: [facility] [place] [phone] or [phone]) CC-CARE C O N F I D E N T I A L I N F O R M A T I O N STANDARD [facility] DOCUMENT OPERATIVE REPORT Patient Name: Antwan Flowers Patient LOG ID: [id number] Surgery/Procedure Date: 02/07/2023 Incision/Procedure Start Time: 8:29 AM Incision Close/Procedure End Time: 10:02 AM Surgeon(s)/Proceduralist(s) and Count Team Clerk(s): Surgeon(s) and Role: * Lizbeth Garcia MD - Primary * Jamir Agrawal MD - Fellow Procedure(s): Repair nasal vestibular stenosis Adjacent tissue transfer/rearrangement, left cheek 20 sq cm Adjacent tissue transfer/rearrangement, left nose 10 sq cm Left nasal scar revision, complex, 10 sq cm Anesthesia: General Preoperative Diagnosis: SCCA (squamous cell carcinoma) of skin [C44.92] History of nasal reconstruction History of head and neck radiation therapy Postoperative Diagnoses: Same as preoperative diagnosis Procedure Indications: Antwan Flowers is an 67 year old male with 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 He presents today for planned subsequent stage in multi-stage procedure for left cicatricial nasal valve stenosis Procedure Findings: Well perfused paramedian forehead flap Left cicatricial nasal valve stenosis Good alar base positioning Thickened left nasal ala Columellar deficiency and deviation to the left Operative Note: After bringing the patient back to the operating room a huddle was performed confirming the correct patient, procedure, allergies, and plan; all present, including the patient agreed. Patient was turned over the anesthesia care for induction of anesthesia. After induction care was turned over to the surgical team. The patient was evaluated and noted to have the above findings. The lateral alar scar was marked, in addition to the left alar base and left nasolabial fold. 1% lidocaine with 1:100,000 epinephrine was injected into the field and allowed adequate time for hemostasis. The patient was prepped in the usual sterile fashion. We began by incising along the left lateral alar scar and skin of the left alar base. Care was taken to preserve previously placed non-anatomic cartilage graft laterally. Medially the incision was deepened with release of thick scar tissue. Careful attention was given to preserving the medial tissue of this incision so as to not incise the skin of the nasal vestibule and place the patient at risk for further stenosis. Now looking into the left lateral nasal ala construct, the soft tissue was sharply debrided with a scalpel. With a nasal speculum in the left nostril it was apparent that the alar tissue was under tension, and thus a releasing incision was made along the junction of the left lateral ala and nasal floor. Next, a curvilinear incision was made adjacent to the left alar base to raise a curvilinear triangular subcutaneous flap. This was done sharply with a scalpel. Next, the left nasolabial fold was sharply incised. A deep subcutaneous flap was sharply raised over the left cheek with scissors to allow tissue advancement of the cheek to obliterate the secondary defect of the curvilinear triangular flap adjacent to the alar base. In total the cheek advancement flap measured 20 sq cm. The wound was irrigated and hemostasis was achieved. The triangular flap was rotated and advanced into intranasal releasing incision in order to increase the size of the nasal vestibule. This was inset using 5-0 monocryl simple interrupted suture. The left alar incision was closed to the lateral side of this flap using 5-0 monocryl simple interrupted suture. The advancement of this released nasal tissue to increase the size of the nasal vestibule measured 10 sq cm. The cheek advancement flap was secured in a tension free manner using 3-0 PDS. The alar base was measured and replaced at the presurgical height and secured with 3-0 PDS. The alar base junction to the cheek advancement flap was closed with 5-0 monocryl. The nasolabial fold incision was closed with 3-0 PDS and 5-0 monocryl deep, and 6-0 prolene simple interrupted on skin. Ointment was applied to all incisions. At this point, the patient was turned back over to Anesthesia, where they were awakened, extubated, and transferred to the PACU in stable condition. Estimated Blood Loss: 5 Specimens: * No specimens in log * Complications: none Implants: * No implants in log * Drains: none Lizbeth Garcia MD was present for entirety of ca (more content not included)... [facility]ICAL[facility] [id number] PHYSICALHNO ID: [id number] Author: Sharon Zaidi PA-C Service: ? Author Type: Physician Count Team Clerk Type: HANDP Filed: 01/29/2023 9:19 AM Note Text: PREANESTHESIA CONSULT CLINIC TELEHEALTH VISIT Patient has been identified by name and date of : Yes This is a virtual visit using Flashtalking video visit. It require patient-provider interaction for the medical decision making as documented below. Reason for contact: PACC visit Accompanied by: Self Scheduled Surgery: Procedure(s) (LRB): REPAIR NASAL VESTIBULAR STENOSIS (Left) TRANSFER / REARRANGEMENT, ADJACENT TISSUE, LEFT NOSTRIL (Left) Left alar scar revision and adjacent tissue transfer 10 SQ CM OR LESS (Left) CREATION RECIPIENT SITE VIA EXCISION; FACE/EARS/EYES 1ST 100SQCM ADULT (Left) I have communicated my name and active licensure. The patient's identity and physical location were verified at the time of this visit. Either the patient or their legal representative government relations has been informed of the risks and benefits of -- and alternatives to -- treatment through a remote evaluation and consents to proceed with the evaluation remotely. Subjective CHIEF COMPLAINT: No chief complaint on file. 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 He has a small nostril on the left from his previous treatments. He denies erythema, warmth or drainage. He elects to proceed with above procedure. ACTIVE PROBLEM LIST Nasal Deformity, Acquired Other Hyperlipidemia Benign Prostatic Hyperplasia With Weak Urinary Stream History of Covid-19 Nasal Obstruction Benign Prostatic Hyperplasia Without Lower Urinary Tract Symptoms PAST MEDICAL HISTORY Diagnosis Date Coronary artery disease 09/12/2017 patient denies this HLD (hyperlipidemia) PAST SURGICAL HISTORY Procedure Laterality Date APPENDECTOMY HX in 8th grade PAST SURGICAL HISTORY OF 2014 Removal of cancer in sinuses PAST SURGICAL HISTORY OF Left 1996 patella tendon reattachment PAST SURGICAL HISTORY OF multiple reconstructions for nasal/sinus PAST SURGICAL HISTORY OF 2018 colonoscopy SEPTOPLASTY 2018 FAMILY HISTORY Problem Relation Age of Onset Heart Father CABG later in life Anesthesia Problems No Family History Malig Hyperthermia No Family History Social History Tobacco Use Smoking status: Former Packs/day: 0.75 Years: 30.00 Pack years: 22.50 Types: Cigarettes Start date: 09/22/1989 Quit date: 09/22/2014 Years since quittin.3 Smokeless tobacco: Never Vaping Use Vaping Use: Never used Substance Use Topics Alcohol use: Yes Comment: once per month or less Drug use: Not Currently ALLERGIES Allergen Reactions House Dust Itching MEDICATIONS: Current Outpatient Medications Medication Sig tamsulosin HCl (TAMSULOSIN ORAL) Take 0.4 mg by mouth once daily. simvastatin (ZOCOR) 40 mg tablet Take 40 mg by mouth daily at bedtime. No current facility-administered medications for this visit. COVID VACCINATION STATUS: Fully vaccinated Tested positive 12/03/2022 - he took 2 subsequent home tests which were negative. Did not have symptoms REVIEW OF SYSTEMS: Pain Assessment: General: No weight loss, malaise or fevers. Neuro: No history of TIA's, stroke, HAIR COLORIST tumor, impaired sensorium, hemiplegia, paraplegia or quadraplegia. No neurological symptoms or problems. Respiratory: No history of current cough or dyspnea, or pneumonia in the past 6 weeks. No history of respiratory/pulmonary symptoms or problems. Cardiovascular: Positive for: HLD, Negative for Recent NC, Arrhythmia, CAD, Chest Pain, CHF, HTN, Valvular Heart Disease, DVT/PE GI: No history of GI symptoms or problems. No history of esophageal varices, recent ascites, or ETOH greater than 2 drinks per day. : Negative for dysuria, frequency, and hematuria, Positive for BPH - on Tamsulosin - denies acute symptoms Endocrine: No history of diabetes. Has not taken steroids within the past 30 days. No history of endocrinological symptoms or problems. Hematology: No history of bleeding or clotting disorder. Pt is not taking anti-coagulation or platelet medications. No history of hematological symptoms or problems. 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 Had radiation to the sinus area Psych: No history of psychiatric symptoms or problems. Musculoskeletal: Negative for joint pain or swelling, back pain or muscle pain. Skin: Negative for lesions, rash and itching. Objective PHYSICAL EXAM: Pulse 53[home pulse oximeter[ Ht 5' 8 [patient reported[ (1.73m) Wt 175 lb (79.4kg) SpO2 98[home pulse oximeter]% BMI 26.61 kg/(m2). VIDEO EXAM: (if completed, performed via video enabled technology) GENERAL: alert and appropriate, in no distress, well-hydrated, well nourished, and happy, smiling, interactive SKIN: no rash (more content not included)...NormalWestern [facility] FLUABV + SARS-CoV-2 Pnl Resp SHMUEL+prbon 63-49-3180Eeiuivkne virus A and B RNA and SARS-CoV-2 (COVID-19) N gene panel SHMUEL+probe (Resp)COVID 19 RESULT: Detected The method used is RT-PCR or an equivalent NAAT method. Reference Range (the expected result in uninfected individuals): Not detected INFLUENZA A PCR: Not detected INFLUENZA B PCR: Not detectedAbnormalCMemorial Health System Selby General HospitalComment on above:Performed By: #### 15317-0 ####[facility] LABCLIA [id number] [place] [address] [place] OF AMERICAHISTORY PHYSICALon [id number] PHYSICALHNO ID: [id number] Author: SHAWNA Joaquin Service: ? Author Type: Physician Count Team Clerk Type: HANDP Filed: 11/22/2022 8:02 AM Note Text: PREANESTHESIA CONSULT CLINIC TELEHEALTH VISIT Patient has been identified by name and date of : Yes This is a virtual visit using Uniquedut video visit. It require patient-provider interaction for the medical decision making as documented below. 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 He has had multiple nasal and sinus surgeries in the past. He is scheduled for another nasal procedure. He denies fever or chills. ACTIVE PROBLEM LIST Nasal Deformity, Acquired Other Hyperlipidemia Benign Prostatic Hyperplasia With Weak Urinary Stream History of Covid-19 Nasal Obstruction Benign Prostatic Hyperplasia Without Lower Urinary Tract Symptoms PAST MEDICAL HISTORY Diagnosis Date Coronary artery disease 09/12/2017 HLD (hyperlipidemia) PAST SURGICAL HISTORY Procedure Laterality Date APPENDECTOMY HX in 8th grade PAST SURGICAL HISTORY OF 2014 Removal of cancer in sinuses PAST SURGICAL HISTORY OF Left 1996 patella tendon reattachment PAST SURGICAL HISTORY OF multiple reconstructions for nasal/sinus PAST SURGICAL HISTORY OF 2018 colonoscopy SEPTOPLASTY 2018 FAMILY HISTORY Problem Relation Age of Onset Anesthesia Problems No Family History Malig Hyperthermia No Family History Social History Tobacco Use Smoking status: Former Packs/day: 0.75 Years: 30.00 Pack years: 22.50 Types: Cigarettes Start date: 09/22/1989 Quit date: 09/22/2014 Years since quittin.1 Smokeless tobacco: Never Vaping Use Vaping Use: Never used Substance Use Topics Alcohol use: Yes Comment: once per month or less Drug use: Not Currently ALLERGIES Allergen Reactions House Dust Itching MEDICATIONS: Current Outpatient Medications Medication Sig tamsulosin HCl (TAMSULOSIN ORAL) Take 0.4 mg by mouth once daily. simvastatin (ZOCOR) 40 mg tablet Take 40 mg by mouth daily at bedtime. No current facility-administered medications for this visit. COVID VACCINATION STATUS: Fully vaccinated REVIEW OF SYSTEMS: Pain Assessment: General: No weight loss, malaise or fevers. Neuro: No history of TIA's, stroke, HAIR COLORIST tumor, impaired sensorium, hemiplegia, paraplegia or quadraplegia. No neurological symptoms or problems. Respiratory: No history of current cough or dyspnea, or pneumonia in the past 6 weeks. No history of respiratory/pulmonary symptoms or problems. Cardiovascular: No history of HTN requiring medication, no history of angina, CHF, NC, cardiac surgery or stents. Denies rest pain, gangrene or revascularization/amputation for PVD. + HLD on statin GI: No history of GI symptoms or problems. No history of esophageal varices, recent ascites, or ETOH greater than 2 drinks per day. : + BPH, follows with PCP Endocrine: No history of diabetes. Has not taken steroids within the past 30 days. No history of endocrinological symptoms or problems. Hematology: No history of bleeding or clotting disorder. Pt is not taking anti-coagulation or platelet medications. No history of hematological symptoms or problems. Oncology: + SCC on nose, see HPI Psych: No history of psychiatric symptoms or problems. Musculoskeletal: Negative for joint pain or swelling, back pain or muscle pain. Skin: Negative for lesions, rash and itching. Objective PHYSICAL EXAM: Pulse 51 Ht 5' 8 (1.73m) Wt 170 lb (77.1kg) BMI 25.85 kg/(m2). VIDEO EXAM: (if completed, performed via video enabled technology) GENERAL: alert and appropriate, in no distress, well-hydrated, well nourished, and happy, smiling, interactive HEAD: normocephalic, no abnormality or lesion noted NOSE: external nose normal without rhinorrhea NECK: full ROM, no cervical LNs noted CHEST: equal chest rise with normal respiratory effort HEART: Self palpated radial pulse, regular when counted aloud by patient Diagnostic tests reviewed for today's visit: Lab Value Units Date High Low HB 14.4 g/dL 10/11/2022 17.0 13.0 HCT 43.9 % 10/11/2022 51.0 39.0 WBC 8.51 k/uL 10/11/2022 11.00 3.70 PLT 183 k/uL 10/11/2022 400 150 NA 141 mmol/L 10/11/2022 144 136 K 4.4 mmol/L 10/11/2022 5.1 3.7 GLUC 93 mg/dL 10/11/2022 99 74 BUN 21 mg/dL 10/11/2022 24 9 CREAT 0.97 mg/dL 10/11/2022 1.22 0.73 PTSEC No results within date range. INR No results within date range. APTT No results within date range. ALT 17 U/L 10/11/2022 54 10 AST 17 U/L 10/11/2022 40 (more content not included)...NormalWood [facility] W Auto Differential panel (Bld)on 12-42-3343Cdwgpicpx (Bld) [#/Vol] 0.04 10*3/uLNormal<0.11CJ.[facility] on above:Order Comment: Specimen Type: BLOOD SPECIMENOrdering Facility: [facility] Address:[address] [place], [place] [address]Performed By: #### 11055-5 ####[facility] LABCLIA [id number] [place], [place] [address]Djvhyhkdc/100 WBC (Bld)0.5 %NormalTriHealth [facility]ull[facility] on above:Order Comment: Specimen Type: BLOOD SPECIMENOrdering Facility: [facility] Address:[address] [place], [place] [address]Performed By: #### 70143-7 ####[facility] LABCLIA [id number] [place], [place] [address]Jnjdazrvmcvq cell count method Nom (Bld)AutoNormalCJ.W. Ruby [facility] Hospital on above:Order Comment: Specimen Type: BLOOD SPECIMENOrdering Facility: [facility] Address:[address] [place], [place] [address]Performed By: #### 49247-0 ####[facility] LABCLIA [id number] [place], [place] [address]Pmhseentjld (Bld) [#/Vol]0.21 10*3/uLNormal<0.46[facility] on above:Order Comment: Specimen Type: BLOOD SPECIMENOrdering Facility: [facility] Address:[address] [place], [place] [address]Performed By: #### 66293-5 ####[facility] LABCLIA [id number] [place] [address] Eosinophils/100 WBC (Bld)2.5 %NormalTriHealth McCullough-Hy[facility] Hospital on above: Order Comment: Specimen Type: BLOOD SPECIMENOrdering Facility: [facility] Address:[address] [place], [place] [address]Performed By: #### 97561-8 ####[facility] LABCLIA [id number] [place], [place] [address]Snjhlfsolql distribution width (RBC) [Ratio]13.6 %Normal 11.5-15.0[facility] on above:Order Comment: Specimen Type: BLOOD SPECIMENOrdering Facility: [facility] Address:[address] [place], [place] [address]Performed By: #### 01408-8 ####[facility] LABIA [id number] [place] [address] Hematocrit (Bld) [Volume fraction]43.9 %Wdglij38.0-51.0[facility] on above:Order Comment: Specimen Type: BLOOD SPECIMENOrdering Facility: [facility] Address:[address] [place], [place] [address]Performed By: #### 35590-6 ####[facility] LABIA [id number] [place], [place] [address]Iubipcmvio (Bld) [Mass/Vol]14.4 g/xBZjcqxx71.0-17.0[facility] on above: Order Comment: Specimen Type: BLOOD SPECIMENOrdering Facility: [facility] Address:[address] [place], [place] [address]Performed By: #### 32379-0 ####[facility] LABIA [id number] [place], [place] [address]Oyrpsofl granulocytes (Bld) [#/Vol]0.07 10*3/uLNormal <0.10[facility] on above:Order Comment: Specimen Type: BLOOD SPECIMENOrdering Facility: [facility] Address:[address] [place], [place] [address]Performed By: #### 67264-1 ####[facility] LABIA [id number] [place], [place] [address]Gzqkffvg granulocytes/100 WBC (Bld)0.8 %NormalTriHealth McCull[facility] on above:Order Comment: Specimen Type: BLOOD SPECIMENOrdering Facility: [facility] Address:[address] [place], [place] [address]Performed By: #### 50338-3 ####[facility] LABCLIA [id number] [place], [place] [address]Ctzogozutkm (Bld) [#/Vol]2.73 10*3/uLNormal 1.00-4.00[facility] on above:Order Comment: Specimen Type: BLOOD SPECIMENOrdering Facility: [facility] Address:[address] [place], [place] [address]Performed By: #### 40986-3 ####[facility] LABIA [id number] [place] [address] Lymphocytes/100 WBC (Bld)32.1 %NormalTriHealth McCullough[facility] on above: Order Comment: Specimen Type: BLOOD SPECIMENOrdering Facility: [facility] Address:[address] [place], [place] [address]Performed By: #### 00062-6 ####[facility] LABCLIA [id number] [place], [place] [address]UCR (RBC) [Entitic mass]28.9 mbItisfu73.0-34.0[facility] on above:Order Comment: Specimen Type: BLOOD SPECIMENOrdering Facility: [facility] Address:[address] [place], [place] [address]Performed By: #### 42787-9 ####[facility] LABCLIA [id number] [place], [place] [address]QNXN (RBC) [Mass/Vol]32.8 g/kPDzrhnz37.5-36.0[facility] on above:Order Comment: Specimen Type: BLOOD SPECIMENOrdering Facility: [facility] Address:[address] [place], [place] [address]Performed By: #### 27147-3 ####[facility] LABCLIA [id number] [place], [place] [address]SQC (RBC) [Entitic vol]88.2 vNIknmyh40.0-100.0 [facility] on above:Order Comment: Specimen Type: BLOOD SPECIMENOrdering Facility: [facility] Address:[address] [place], [place] [address]Performed By: #### 62733-8 ####[facility] LABIA [id number] [place], [place] [address]Wuxagdtmh (Bld) [#/Vol]0.47 10*3/uLNormal<0.87[facility] on above: Order Comment: Specimen Type: BLOOD SPECIMENOrdering Facility: [facility] Address:[address] [place], [place] [address]Performed By: #### 02765-3 ####[facility] LABIA [id number] [place], [place] [address]Clfgbstkc/100 WBC (Bld)5.5 %NormalTriHealth McCull[facility] on above:Order Comment: Specimen Type: BLOOD SPECIMENOrdering Facility: [facility] Address:[address] [place], [place] [address]Performed By: #### 64752-6 ####[facility] LABIA [id number] [place], [place] [address]Dxvpanmtuml (Bld) [#/Vol]4.99 10*3/uLNormal1.45-7.50[facility] on above: Order Comment: Specimen Type: BLOOD SPECIMENOrdering Facility: [facility] Address:[address] [place], [place] [address]Performed By: #### 77836-3 ####[facility] LABIA [id number] [place], [place] [address]Kkcmvqvcmdz/100 WBC (Bld)58.6 %NormalTriHealth McCullough-[facility] on above:Order Comment: Specimen Type: BLOOD SPECIMENOrdering Facility: [facility] Address:[address] [address]Performed By: #### 40999-8 ####[facility] LABCLIA [id number] [place], [place] [address]Gyiekgcus RBC (Bld) [#/Vol]10*3/uLNormal<0.01[facility] HospitalComkal[facility] psychiatric [facility] on above:Order Comment: Specimen Type: BLOOD SPECIMENOrdering Facility: [facility] Address:[address] [place], [place] [address]Performed By: #### 70289-6 ####[facility] LABCLIA [id number] [place], [place] [address]Cobyalyke RBC/100 WBC (Bld) [Ratio]0.0 /100 WBCNormal [facility] on above:Order Comment: Specimen Type: BLOOD SPECIMENOrdering Facility: [facility] Address:[address] [place], [place] [address]Performed By: #### 97598-0 ####[facility] LABCLIA [id number] [place], [place] [address]Uxiwqtfu mean volume (Bld) [Entitic vol]10.6 fLNormal9.0-12.7CMemorial Health System [facility] Comment on above:Order Comment: Specimen Type: BLOOD SPECIMENOrdering Facility: [facility] Address:[address] [place] [address] Performed By: #### 65880-3 ####[facility] LABCLIA [id number] [place], [place] [address]Nadremjrd (Bld) [#/Vol]183 10*3/yVTyefzf182-991NwyjtudtiTriHealth McCullough-[facility] Hospital on above:Order Comment: Specimen Type: BLOOD SPECIMENOrdering Facility: [facility] Address:[address] [place], [place] [address]Performed By: #### 58645-6 ####[facility] LABCLIA [id number] [place], [place] [address]WST (Bld) [#/Vol]4.98 10*6/uLNormal4.20-6.00[facility] on above:Order Comment: Specimen Type: BLOOD SPECIMENOrdering Facility: [facility] Address:[address] [place], [place] [address]Performed By: #### 82134-4 ####[facility] LABCLIA [id number] [place], [place] [address]LDH (Bld) [#/Vol]8.51 10*3/uLNormal3.70-11.00[facility] on above: Order Comment: Specimen Type: BLOOD SPECIMENOrdering Facility: [facility] Address:[address] [place], [place] [address]Performed By: #### 40949-9 ####[facility] LABCLIA [id number] [place], [place] [address]Atmgzennarvol metabolic 2000 panelon 10-58-0749Nuamgeu [Mass/Vol]4.8 g/dLNormal3.9-4.9C[facility] on above:Order Comment: Specimen Type: BLOOD SPECIMENOrdering Facility: [facility] Address:[address] [place], [place] [address]Performed By: #### 28886-1 ####[facility] LABCLIA [id number] [place], [place] [address]TOB [Catalytic activity/Vol]82 U/OQjmiiw20-470EnkccqdrrTriHealth McCullough-[facility] on above:Order Comment: Specimen Type: BLOOD SPECIMENOrdering Facility: [facility] Address:[address] [place], [place] [address]Performed By: #### 94949-2 ####[facility] LABCLIA [id number] [place], [place] [address]DNP [Catalytic activity/Vol]17 U/LZfncep58-81MbvoatuneTriHealth McCullough-Hy[facility] Hospital on above:Order Comment: Specimen Type: BLOOD SPECIMENOrdering Facility: [facility] Address:[address] [place], [place] [address]Performed By: #### 27575-1 ####[facility] LABCLIA [id number] [place] [address]Fikwa gap [Moles/Vol]10 mmol/LNormal9-18[facility] on above:Order Comment: Specimen Type: BLOOD SPECIMENOrdering Facility: [facility] Address:[address] [place], [place] [address]Performed By: #### 22106-1 ####[facility] LABCLIA [id number] [place] [address]LRQ [Catalytic activity/Vol]17 U/VFhsxfg20-07XfxxjimpoTriHealth McCullough-[facility] on above:Order Comment: Specimen Type: BLOOD SPECIMENOrdering Facility: [facility] Address:[address] [place], [place] [address]Performed By: #### 81240-0 ####[facility] LABCLIA [id number] [place] [address]Ddflufzol [Mass/Vol]0.2 mg/dLNormal0.2-1.3C[facility] on above:Order Comment: Specimen Type: BLOOD SPECIMENOrdering Facility: [facility] Address:[address] [place], [place] [address]Performed By: #### 02826-2 ####[facility] LABCLIA [id number] [place] [address]Dcuifwx [Mass/Vol]9.7 mg/dLNormal8.5-10.2C[facility] on above: Order Comment: Specimen Type: BLOOD SPECIMENOrdering Facility: [facility] Address:[address] [place], [place] [address]Performed By: #### 85691-9 ####[facility] LABCLIA [id number] [facility] [place], [place] [address]Rileazsl [Moles/Vol]106 mmol/XWkkp52-853ZfllylajnTriHealth McCullough-[facility] on above:Order Comment: Specimen Type: BLOOD SPECIMENOrdering Facility: [facility] Address:[address] [place], [place] [address]Performed By: #### 21392-1 ####[facility] LABCLIA [id number] [place], [place] [address]JQ9 [Moles/Vol]25 mmol/JVirzlf81-41NmagtjqgmTriHealth McCullough-[facility] on above:Order Comment: Specimen Type: BLOOD SPECIMENOrdering Facility: [facility] Address:[address] [place], [place] [address]Performed By: #### 50068-5 ####[facility] LABCLIA [id number] [place], [place] [address]Nofbbijgrh [Mass/Vol]0.97 mg/dLNormal0.73-1.22[facility] on above:Order Comment: Specimen Type: BLOOD SPECIMENOrdering Facility: [facility] Address:[address] [place], [place] [address]Performed By: #### 57992-4 ####[facility] LABCLIA [id number] [place], [place] [address]CFINXMQDT GLOMERULAR FILTRATION RATE85 mL/min/1.73m???Normal>=60[facility] on above:Order Comment: Specimen Type: BLOOD SPECIMENOrdering Facility: [facility] Address:[address] [place], [place] [address]Result Comment: Estimated Glomerular Filtration Rate (eGFR) is calculated using the 2020 CKD-EPI creatinine equation. This equation utilizes serum creatinine, sex, and age as parameters. The creatinine assay has traceable calibration to isotope dilution-mass spectrometry. Refer to KDIGO guidelines f or clinical interpretation. In patients with unstable renal function, e.g. those with acute kidney injury, the eGFR may not accurately reflect actual GFR. Performed By: #### 23479-8 ####[facility] LABCLIA [id number] [place], [place] [address]Vzutrjd [Mass/Vol]93 mg/dL Mofzse76-69NzkaibijnTriHealth McCullough-Hyde Memorial Hospital on above:Order Comment: Specimen Type: BLOOD SPECIMENOrdering Facility: [facility] Address:[address] [place], [place] [address]Result Comment: The [place] [employer] (ADA) provides guidance for cutoff values for fasting glucose and random glucose. The ADA defines fasting as no [...] Standards of Medical Care in Diabetes 2016, [place] [employer]. Diabetes Care. 2016.39(Suppl 1).Performed By: #### 41915-0 ####[facility] LABCLIA [id number] [place], [place] [address]Ltpejsmwj [Moles/Vol]4.4 mmol/LNormal3.7-5.1C[facility] on above:Order Comment: Specimen Type: BLOOD SPECIMENOrdering Facility: [facility] Address:[address] [place], [place] [address]Performed By: #### 86708-7 ####[facility] LABCLIA [id number] [place], [place] [address]Wgcrxow [Mass/Vol]6.8 g/dLNormal6.3-8.0[facility] on above:Order Comment: Specimen Type: BLOOD SPECIMENOrdering Facility: [facility] Address:[address] [place], [place] [address]Performed By: #### 44101-1 ####[facility] LABCLIA [id number] [place], [place] [address]Vdrlwd [Moles/Vol]141 mmol/STedqaq236-403HdjcvjrotTriHealth McCull[facility] on above:Order Comment: Specimen Type: BLOOD SPECIMENOrdering Facility: [facility] Address:[address] [place] [id number] By: #### 70078-0 ####[facility] LABIA [id number] [place], [place] [address]Nqlv nitrogen [Mass/Vol]21 mg/dLNormal9-24[facility] on above:Order Comment: Specimen Type: BLOOD SPECIMENOrdering Facility: [facility] Address:[place] [address]Performed By: #### [id number] ####[facility] LABIA [id number] [place], [place] [address]MZBWxd [id number] (PAHCB1) ANTWAN FLOWERS ([id number]) 1955 M Date Time Provider Department 10/10/22 [facility] During your visit today, we recorded the following information about you: Karlo Zambrano APRN.CNP 10/10/2022 10:33 AM Signed Noted labs not completed. Called pt spoke with him, he states will get labs drawn today or tomorrow. Allergies As of Date: 10/10/2022 Noted Allergy Reaction HOUSE DUST 06/26/2021 9 - Itching Date Reviewed: 10/04/2022 Reviewed by: Karlo Zambrano APRN.V/[employer] SIGNAL OFFICER - Fully Assessed Reason for Visit: PreOp Call [[id number]] Prescriptions as of 10/10/2022 - Sodium Chloride 0.9 % soln Use for nasal irrigation as directed. Dispense as 1 L bottles. - tamsulosin HCl (TAMSULOSIN ORAL) Take 0.4 mg by mouth once daily. - simvastatin (ZOCOR) 40 mg tablet Take 40 mg by mouth daily at bedtime. Problem List As Of Date 10/10/2022 Noted Resolved Nasal deformity, acquired [M95.0] 07/07/2021 Other hyperlipidemia [E78.49] 08/08/2021 Benign prostatic hyperplasia with weak urinary *08/08/2021 History of COVID-19 [Z86.16] 10/08/2021 Nasal obstruction [J34.89] 10/12/2021 Benign prostatic hyperplasia without lower urin*08/23/2020 Encounter Status:Closed by KARLO ZAMBRANO on 10/10/22[facility] [id number] (PAHCB1) ANTWAN FLOWERS ([id number]) 1955 M Date Time Provider Department 10/04/22 [facility] During your visit today, we recorded the following information about you: Karlo Zambrano APRN.CNP 10/04/2022 10:22 AM Signed Asim Lugo pt for PACC today. Please have your office place surgical episode in [facility]. Thanks, Karlo Zambrano APRN.CNP Allergies As of Date: 10/04/2022 Noted Allergy Reaction HOUSE DUST 06/26/2021 9 - Itching Date Reviewed: 10/04/2022 Reviewed by: Karlo Zambrano APRN.CNP - Fully Assessed Reason for Visit: PreOp Call [[id number]] Prescriptions as of 10/04/2022 - Sodium Chloride 0.9 % soln Use for nasal irrigation as directed. Dispense as 1 L bottles. - tamsulosin HCl (TAMSULOSIN ORAL) Take 0.4 mg by mouth once daily. - simvastatin (ZOCOR) 40 mg tablet Take 40 mg by mouth daily at bedtime. Problem List As Of Date 10/04/2022 Noted Resolved Nasal deformity, acquired [M95.0] 07/07/2021 Other hyperlipidemia [E78.49] 08/08/2021 Benign prostatic hyperplasia with weak urinary *08/08/2021 History of COVID-19 [Z86.16] 10/08/2021 Nasal obstruction [J34.89] 10/12/2021 Benign prostatic hyperplasia without lower urin*08/23/2020 Encounter Status:Closed by KARLO ZAMBRANO on 10/04/22[facility] CampusT[facility] PHYSICALon [id number] PHYSICALHNO ID: [id number] Author: Karlo Zambrano APRN.V/[employer] SIGNAL OFFICER Service: ? Author Type: Nurse Practitioner Type: HANDP Filed: 10/14/2022 2:08 PM Note Text: PREANESTHESIA CONSULT CLINIC TELEHEALTH VISIT Patient has been identified by name and date of : Yes This is a virtual visit using Flashtalking video visit. It require patient-provider interaction for the medical decision making as documented below. Reason for contact: PACC visit Accompanied by: Self Scheduled Surgery: Per Dr Jose eng note: reconstruct his ala revision with skin grafting, ear cartilage grafting, scar revision of ala and nostril. Subjective CHIEF COMPLAINT: Patient presents with: Pre-Op Visit HPI: 68 year old male with history of multiple nasal reconstructions, radiation to nose. Per Dr Garcia 10/01/22 albertina note, pt to have reconstruct his ala revision with skin grafting, ear cartilage grafting, scar revision of ala and nostril. Pt takes nothing for pain. He denies abdominal pain, nausea, vomiting, fevers or chills. 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 No pertinent family history. Social History Tobacco Use Smoking status: Former Packs/day: 0.75 Years: 30.00 Pack years: 22.50 Types: Cigarettes Start date: 09/22/1989 Quit date: 09/22/2014 Years since quittin.0 Smokeless tobacco: Never Vaping Use Vaping Use: Never used Substance Use Topics Alcohol use: Yes Comment: once per month or less Drug use: Not Currently ALLERGIES Allergen Reactions House Dust Itching MEDICATIONS: Current Outpatient Medications Medication Sig Sodium Chloride 0.9 % soln Use for nasal irrigation as directed. Dispense as 1 L bottles. tamsulosin HCl (TAMSULOSIN ORAL) Take 0.4 mg by mouth once daily. simvastatin (ZOCOR) 40 mg tablet Take 40 mg by mouth daily at bedtime. No current facility-administered medications for this visit. COVID VACCINATION STATUS: Fully vaccinated REVIEW OF SYSTEMS: Pain Assessment: General: No weight loss, malaise or fevers. Neuro: No history of TIA's, stroke, HAIR COLORIST tumor, impaired sensorium, hemiplegia, paraplegia or quadraplegia. No neurological symptoms or problems. Respiratory: No history of current cough or dyspnea, or pneumonia in the past 6 weeks. No history of respiratory/pulmonary symptoms or problems. Cardiovascular: Positive for: HLD, Negative for Arrhythmia, Chest Pain, DVT/PE GI: No history of GI symptoms or problems. No history of esophageal varices, recent ascites, or ETOH greater than 2 drinks per day. : Negative for incontinence, Positive for BPH takes Flomax Endocrine: No history of diabetes. Has not taken steroids within the past 30 days. No history of endocrinological symptoms or problems. Hematology: No history of bleeding or clotting disorder. Pt is not taking anti-coagulation or platelet medications. No history of hematological symptoms or problems. Noted PLT= 133 with 07/12 labs, today's labs pending Oncology: See HPI Psych: No history of psychiatric symptoms or problems. Musculoskeletal: Negative for joint pain or swelling, back pain or muscle pain. Skin: Negative for lesions, rash and itching. Objective PHYSICAL EXAM: Pulse 61[per pt home pulse ox, pt states palpated HRRR[ Ht 5' 8 (1.73m) Wt 175 lb (79.4kg) SpO2 98[per home pulse ox]% BMI 26.61 kg/(m2). VIDEO EXAM: (if completed, performed via video enabled technology) GENERAL: alert and appropriate, in no distress, well-hydrated,and interactive SKIN: no rash noted HEAD: normocephalic, no abnormality or lesion noted EYES: no injection EARS: external ears normal NOSE: external nose normal without rhinorrhea OROPHARYNX: moist mucus membranes, lips, teeth and gums are without obvious lesion NECK: full ROM, no cervical LNs noted RESPIRATORY: breathing non-labored and no grunting/flaring/retractions CHEST: equal chest rise with normal respiratory effort HEART: Self palpated radial pulse regular when counted aloud by pt ABDOMEN: soft and non-tender EXTREMITIES: no reported LE edema per pt NEUROLOGIC: no obvious deficit Diagnostic tests reviewed for today's visit: Lab Value Units Date High Low HB No results within date range. HCT No results within date range. WBC No results within date range. PLT No results within date ra (more content not included)...NormalKindred Healthcare [id number] Visit (OTOLMN) ANTWAN FLOWERS ([id number]) 1955 M Date Time Provider Department 10/01/22 1:40 PM LIZBETH GARCIA OTALVINA During your visit today, we recorded the following information about you: Ajay Lawson MA 10/01/2022 1:57 PM Signed Tobacco Use: .75 packs/day, for 30 years. Quit 09/22/2014. Types: Cigarettes Was smoking cessation packet given? N/A - Patient is a non-smoker or quit >1 year ago. Was a referral initiated?N/A Patient is a non-smoker Lizbeth Garcia MD 10/02/2022 7:19 AM Signed Has been healing well. His left nostril, while improved, has stenosed some. This has left him with left nasal obstruction. On exam, it is obvious that there is some cicatrical stenosis. His nasal valve is stenotic, restricting his airway. The tip is pulled to that side. His alar crease is also blunted. 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 P - reconstruct his ala revision with skin grafting, ear cartilage grafting, scar revision of ala and nostril. I spent 30 minutes with the patient, over half of which was in counseling and coordination of care. Referring Provider: LIZBETH GARCIA [[id number]] Allergies As of Date: 10/01/2022 Noted Allergy Reaction HOUSE DUST 06/26/2021 9 - Itching Date Reviewed: 10/01/2022 Reviewed by: Ajay Lawson MA - Fully Assessed Reason for Visit: Post Op [174] Cmt: Follow up post op Primary Visit Diagnosis:SCCA (squamous cell carcinoma) of skin [C44.92] Order(s):SURGICAL REQUEST - ELECTIVE (04/2020) [[id number]] Order #: [id number]: 1 Prescriptions as of 10/02/2022 - Sodium Chloride 0.9 % soln Use for nasal irrigation as directed. Dispense as 1 L bottles. - white petrolatum (AQUAPHOR ORIGINAL) 41 % topical ointment Apply 1 Inch to affected area five times daily. Apply liberally to nostrils and yellow gauze dressings on your ear and nose five times a day. - tamsulosin HCl (TAMSULOSIN ORAL) Take 0.4 mg by mouth once daily. - simvastatin (ZOCOR) 40 mg tablet Take 40 mg by mouth daily at bedtime. Problem List As Of Date 10/01/2022 Noted Resolved Nasal deformity, acquired [M95.0] 07/07/2021 Other hyperlipidemia [E78.49] 08/08/2021 Benign prostatic hyperplasia with weak urinary *08/08/2021 History of COVID-19 [Z86.16] 10/08/2021 Nasal obstruction [J34.89] 10/12/2021 Benign prostatic hyperplasia without lower urin*08/23/2020 Visit Notes: >> GERAROD Khoury Oct 01, 2022 1:57 PM Status: Signed Tobacco Use: .75 packs/day, for 30 years. Quit 09/22/2014. Types: Cigarettes Was smoking cessation packet given? N/A - Patient is a non-smoker or quit >1 year ago. Was a referral initiated?N/A Patient is a non-smoker Encounter Status:Closed by LIZBETH GARCIA on 10/02/22[facility]on [id number] Hip w/o + w/ RightHistory: Abnormal MRI of the left hip. Technique: Routine MRI of the right hip with dedicated small field of view imaging of the right hip, with and without contrast, given 15 mL of intravenous ProHance.. Comparison: Right hip MRI 04/24/2022. RESULT: Some limitations from motion. RIGHT HIP: Mild to moderate degenerative changes with full-thickness chondral loss involving the superior weightbearing aspect and osteophytes. No evidence for fracture or suspicious marrow replacing process. Degenerative tearing of the anterior superior labrum with large associated paralabral cyst measuring approximately 3.6 x 3.0 x 0.8 cm and correlating with the abnormality on the recent MRI of the left hip. LEFT HIP: Refer to recent left hip MRI. BONE MARROW: There is no evidence of fracture, bone bruise, marrow replacing lesion or osteonecrosis. TENDONS: Mild tendinosis or low-grade partial stripping at the right hamstring origin. Other visualized tendons unremarkable. MUSCLE: Muscle bulk and signal intensity are within normal limits. NERVES: The visualized portions of the lumbosacral plexus and sciatic nerve appear to be within normal limits. VISCERAL PELVIS: Limited evaluation unchanged. Colonic diverticulosis. OTHER: No other significant abnormality. IMPRESSION: Mild to moderate degenerative changes right hip with associated degenerative tearing of the acetabular labrum and 3.6 cm paralabral cyst, which correlates with the findings on the recent left hip MRI. No suspicious enhancement after contrast. Report reported and signed by Ryan Azevedo on 05/09/2022 1018NormalNorthern [facility] SpecialistMRI Hip w/o Lefton [id number] Hip w/o LeftHistory: Lateral hip pain and groin pain. Pain after urogram lifting rocks. Comparison: Hip radiographs 04/15/2022 Technique: Multiplanar multisequence MRI of the left hip was performed without contrast. Findings: No acute or aggressive osseous abnormality or evidence of stress reaction. No femoral head avascular necrosis. Degenerative changes are identified of the lower lumbar spine but are incompletely evaluated on this examination. Low-grade partial stripping of the bilateral common hamstring tendons at the ischial tuberosities. Gluteus medius and gluteus minimus tendons are intact. No trochanteric bursal effusion. Left external rotators tendons are intact. Adductor compartment myotendinous structures are intact. The left sciatic nerve is within normal limits in course and morphology. No displaced labral tear identified. No well-defined or measurable cartilage defect of the left hip. Nodularity of the prostate is incompletely evaluated. Colonic diverticuli are identified. IMPRESSION: No acute osseous abnormality. No femoral head avascular necrosis. No displaced labral tear identified. Low-grade partial stripping of the common hamstring tendon at the ischial tuberosity. Degenerative changes are identified of the lower lumbar spine but are completely evaluated. A nonspecific 3.7 cm hyperintense T2 structure is present along the anterior margin of the right hip joint and is only well-visualized on the coronal STIR sequence. This would be better evaluated with MRI of the right hip with contrast. Report reported and signed by Liam Juarez on 04/26/2022 1520NormalNorthern Massachusetts Medical SpecialistINSULINon [id number] uIU/mLNormal2.6-24.9The Regional Medical CenterComment on above:Performed By: #### INSULIN #### [facility] [address] [address] [address] Pilar Leslie AUTO DIFFon [id number] #0.0 103/ulNormal0.0-0.1The Regional Medical CenterComment on above:Performed By: #### CBC #### [facility] [address] [address] [address] Pilar WebsterBasophils/100 WBC (Bld)0.5 %Normal0.2-2.0[facility] Comment on above:Performed By: #### CBC #### [facility] [address] [address] [address] Quezada ChangEMain #0.2 103/ulNormal0.0-0.7The Regional Medical CenterComment on above: Performed By: #### CBC #### [facility] [address] [place] [address] Dr. Pilar Galanosinophils/100 WBC (Bld)2.7 %Normal0.9-7.0[facility] Comment on above:Performed By: #### CBC #### [facility] [address] [place] [address] Dr. Pilar Galanrythrocyte distribution width (RBC) [Ratio]13.5 %Xdutgr97.0-15.0 The Regional Medical CenterComment on above:Performed By: #### CBC #### [facility] [address] [place] [address] Dr. Pilar WebsterHematocrit (Bld) [Volume fraction]47.4 %Wgvuvy24.0-54.0The [facility] Medical CenterComment on above:Performed By: #### CBC #### [facility] [address] [place] [address] Dr. Pilar WebsterHemoglobin (Bld) [Mass/Vol]15.4 g/sYXkjyaw84.0-18.0The [facility] Medical CenterComment on above:Performed By: #### CBC #### [facility] [address] [place] [address] Dr. Pilar Majano #0.04 10e3/ulCritically high0.00-0.03[facility] Comment on above:Performed By: #### CBC #### [facility] [address] [place] [address] Dr. Pilar Majano %0.5 %Normal0.0-0.5The Regional Medical CenterComment on above: Performed By: #### CBC #### [facility] [address] [place] [address] Dr. Pilar OliveiraH #2.3 103/ulNormal1.2-3.8The Regional Medical CenterComment on above:Performed By: #### CBC #### [facility] [address] [place] [address] Dr. Pilar Llanosmphocytes/100 WBC (Bld)27.7 %Ofnhtd71.5-60.0The [facility] Medical CenterComment on above:Performed By: #### CBC #### [facility] [address] [place] [address] Dr. Pilar Condon DIFF REQNONormalThe Regional Medical CenterComment on above: Performed By: #### CBC #### [facility] [address] [place] [address] Dr. Pilar Mcallister (RBC) [Entitic mass]28.2 neBlfzhs89.9-34.0The [facility] City HospitalComment on above:Performed By: #### CBC #### [facility] [address] [place] [address] Dr. Pilar Mcallister (RBC) [Mass/Vol]32.5 g/fNQrotuo71.9-35.2The [facility] Medical CenterComment on above:Performed By: #### CBC #### [facility] [address] [place] [address] Dr. Pilar Mcallister (RBC) [Entitic vol]86.8 jGKaehsu67.0-94.0The [facility] Medical CenterComment on above:Performed By: #### CBC #### [facility] [address] [place] [address] Dr. Pilar Gregory #0.4 103/ulNormal0.3-0.8The [facility] Medical CenterComment on above:Performed By: #### CBC #### [facility] [address] [place] [address] Dr. Pilar Loveocytes/100 WBC (Bld)4.1 %Normal1.7-12.0[facility] Comment on above:Performed By: #### CBC #### [facility] [address] [place] [address] Dr. Pilar Dorsey #5.5 103/ulNormal1.4-6.5The [facility] Medical CenterComment on above:Performed By: #### CBC #### [facility] [address] [place] [address] Dr. Pilar Rankinutrophils/100 WBC (Bld)64.5 %Fjvgkl01.0-75.0The [facility] Medical CenterComment on above:Performed By: #### CBC #### [facility] [address] [place] [address] Dr. Pilar Demarco mean volume (Bld) [Entitic vol]9.9 fLNormal9.5-13.5The [facility] Medical CenterComment on above:Performed By: #### CBC #### [facility] [address] [place] [address] Dr. Pilra WebsterPLT181 103/geZbxjpf912-113Byt Regional Medical CenterComment on above: Performed By: #### CBC #### [facility] [address] [place] [address] Dr. Pilar WebsterRBC5.46 106/ulNormal4.70-6.10The [facility] Medical CenterComment on above:Performed By: #### CBC #### [facility] [address] [place] [address] Dr. Pilar WebsterWBC8.5 103/ulNormal4.0-11.0The [facility] Medical CenterComment on above: Performed By: #### CBC #### [facility] [address] [place] [address] Dr. Pilar Douglas THYROXINE INDEX T7on 24-29-6625BLF8.84NormalThe Regional Medical CenterComment on above:Performed By: #### LIPID, TSH, CMP, T7 #### [facility] [address] [place] [address] Dr. Pilar WebsterT3U33.0 %Ztrltl79.5-40.5The [facility] Medical CenterComment on above: Performed By: #### LIPID, TSH, CMP, T7 #### [facility] [address] [place] [address] Dr. Pilar WebsterT4 [Mass/Vol]8.60 ug/dLNormal4.50-12.10[facility] Comment on above:Performed By: #### LIPID, TSH, CMP, T7 #### [facility] [address] [place] [address] Dr. Pilar UlloaHEMOGLOBIN A1Con 97-33-6579WXB RECOMMENDATIONSEE BELOWNormne The Regional Medical CenterComment on above:Result Comment: ADA RECOMMENDED LIMIT 4.0 - 6.0 ADA THERAPEUTIC TARGET < 7.0 ACTION SUGGESTED > 7.0Performed By: #### A1C #### [facility] [address] [place] [address] Dr. Pilar WebsterGlucose [Mass/Vol]120 mg/dLNoLima City HospitalComment on above:Performed By: #### A1C #### [facility] [address] [place] [address] Dr. Pilar WebsterHbA1c (Bld) [Mass fraction]5.8 %Normal4.5-6.2The [facility] Medical CenterComment on above:Performed By: #### A1C #### [facility] [address] [place] [address] Dr. Pilar WebsterLIPID PROFILEon [id number]-HDL RATIO NORMSEE BELOWFulton County Health CenterComment on above:Result Comment: 3.3 - 4.4 LOW RISK 4.4 - 7.1 AVERAGE RISK 7.1 - 11.0 MODERATE RISK >11.0 HIGH RISKPerformed By: #### LIPID, TSH, CMP, T7 #### [facility] [address] [place] [address] Dr. Pilar WebsterCholesterol [Mass/Vol]182 mg/dLNormal<=200[facility] Comment on above:Performed By: #### LIPID, TSH, CMP, T7 #### [facility] [address] [place] [address] Dr. Pilar WebsterCholesterol in HDL [Mass/Vol]59 mg/yVZmtebj97-43Xqa [facility] CenterComment on above:Performed By: #### LIPID, TSH, CMP, T7 #### [facility] [address] [place] [address] Dr. Pilar WebsterCholesterol in LDL [Mass/Vol]98.8 mg/dLFulton County Health CenterComment on above:Performed By: #### LIPID, TSH, CMP, T7 #### [facility] [address] [address] [address] Pilar WebsterCholesterol.total/Cholesterol in HDL [Mass ratio]3.1 {ratio} NormalThe University Hospitals Beachwood Medical Centerment on above:Performed By: #### LIPID, TSH, CMP, T7 #### [facility] [address] [address] [address] Pilar Frank NORMAL> or = 60 mg/dl - LOW CARDIOVASCULAR RISK <40 mg/dl - HIGH CARDIOVASCULAR RISKNoLima City HospitalComment on above:Performed By: #### LIPID, TSH, CMP, T7 #### [facility] [address] [address] [address] Pilar WebsterLDL CALC NORMALSEE BELOWFulton County Health CenterComment on above:Result Comment: <100 mg/dl OPTIMAL 100 - 129 mg/dl NEAR OR ABOVE OPTIMAL 130 - 159 mg/dl BORDERLINE HIGH 160 - 189 mg/dl HIGH >190 mg/dl VERY HIGH Performed By: #### LIPID, TSH, CMP, T7 #### [facility] [address] [address] [address] Pilar WebsterTriglyceride [Mass/Vol]121 mg/dLNormal<=150[facility] Comment on above:Performed By: #### LIPID, TSH, CMP, T7 #### [facility] [address] [address] [address] Pilar WebsterVLDL CALC24.2 mg/dLNoLima City HospitalComment on above: Performed By: #### LIPID, TSH, CMP, T7 #### [facility] [address] [address] [address] Pilar WebsterPROF 14(COMP METB)on 01-04-2060Ofdmiaj [Mass/Vol]4.1 g/dLNormal 3.4-5.0The [facility] Medical CenterComment on above:Performed By: #### LIPID, TSH, CMP, T7 #### [facility] [address] [address] [address] Pilar WebsterAlbumin/Globulin [Mass ratio]1.2 {ratio}NormalThe Lola HospitalComment on above:Performed By: #### LIPID, TSH, CMP, T7 #### [facility] [address] [address] [address] Pilar Obrien [Catalytic activity/Vol]86 U/UXehfeq54-668Ppg [facility] CenterComkalamazoo psychiatric hospital on above:Performed By: #### LIPID, TSH, CMP, T7 #### [facility] [address] [place] [address] Dr. Pilar Obrien [Catalytic activity/Vol]37 U/RFptiaq34-61Uxf [facility] CenterComment on above:Performed By: #### LIPID, TSH, CMP, T7 #### [facility] [address] [place] [address] Dr. Pilar Zabala gap [Moles/Vol]11.3 mmol/LNormalThe [facility] Comment on above:Performed By: #### LIPID, TSH, CMP, T7 #### [facility] [address] [place] [address] Dr. Pilar Guerrero [Catalytic activity/Vol]20 U/OXncizo85-59Tnc [facility] CenterComkalamazoo psychiatric hospital on above:Performed By: #### LIPID, TSH, CMP, T7 #### [facility] [address] [place] [address] Dr. Pilar WebsterBilirubin [Mass/Vol]0.4 mg/dLNormal0.2-1.0[facility] Comment on above:Performed By: #### LIPID, TSH, CMP, T7 #### [facility] [address] [place] [address] Dr. Pilar WebsterCalcium [Mass/Vol]8.9 mg/dLNormal8.5-10.1[facility] Comment on above:Performed By: #### LIPID, TSH, CMP, T7 #### [facility] [address] [place] [address] Dr. Pilar WebsterChloride [Moles/Vol]102 mmol/BVomcea92-744KdbVeterans Health Administration Comment on above:Performed By: #### LIPID, TSH, CMP, T7 #### [facility] [address] [place] [address] Dr. Pilar WebsterCO2 [Moles/Vol]29.0 mmol/FHxzxjq43.0-32.0[facility] Comment on above:Performed By: #### LIPID, TSH, CMP, T7 #### [facility] [address] [address] [address] Pilra WebsterCreatinine [Mass/Vol]0.89 mg/dLNormal0.70-1.30The [facility] CenterComment on above:Performed By: #### LIPID, TSH, CMP, T7 #### [facility] [address] [address] [address] Pilar GalanGFR-AF ICELANDIC>60Normal>=60The [facility] CenterComment on above:Performed By: #### LIPID, TSH, CMP, T7 #### [facility] [address] [address] [address] Pilar GalanGFR-NON AF ICELANDIC>60Normal>=60The [facility] CenterComment on above:Performed By: #### LIPID, TSH, CMP, T7 #### [facility] [address] [address] [address] Pilar WebsterGlobulin (S) [Mass/Vol]3.4 g/dLNormalThe Regional Medical CenterComment on above:Performed By: #### LIPID, TSH, CMP, T7 #### [facility] [address] [address] [address] Pilar WebsterGlucose [Mass/Vol]94 mg/wXXkikmp88-450[facility] Comment on above:Performed By: #### LIPID, TSH, CMP, T7 #### [facility] [address] [address] [address] Pilar WebsterPotassium [Moles/Vol]4.3 mmol/LNormal3.5-5.1[facility] Comment on above:Performed By: #### LIPID, TSH, CMP, T7 #### [facility] [address] [address] [address] Pilar WebsterProtein [Mass/Vol]7.5 g/dLNormal6.1-8.2[facility] Comment on above:Performed By: #### LIPID, TSH, CMP, T7 #### [facility] [address] [address] [address] Pilar Madrigaldium [Moles/Vol]138 mmol/SSgiduu814-933CoeVeterans Health Administration Comment on above:Performed By: #### LIPID, TSH, CMP, T7 #### [facility] [address] [address] [address] Pilar Banuelos nitrogen [Mass/Vol]17.0 mg/dLNormal7.0-18.0Veterans Health AdministrationComment on above:Performed By: #### LIPID, TSH, CMP, T7 #### [facility] [address] [place] [address] Dr. Pilar Banuelos nitrogen/Creatinine [Mass ratio]19.1 mg/mgFulton County Health CenterComment on above:Performed By: #### LIPID, TSH, CMP, T7 #### [facility] [address] [place] [address] Dr. Pilar Fraga 42-53-3331HBJ5.372 uIU/mLNormal0.470-4.680Veterans Health AdministrationComment on above:Performed By: #### LIPID, TSH, CMP, T7 #### [facility] [address] [place] [address] Dr. Pilar Courtney [facility] BELOWFulton County Health CenterComment on above: Result Comment: <0.34 UIU/ml HYPERTHYROID 0.34-5.60 UIU/ml EUTHYROID >5.60 UIU/ml HYPOTHYROIDPerformed By: #### LIPID, TSH, CMP, T7 #### [facility] [address] [place] [address] Dr. 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 He still has right ear blockage despite the course of Medrol. Spoke with patient. Patient referred to Dr. Avila or Dr. Fox per Dr. Haynes. Supplied numbers for both physicians. Ordered a referral for an audiogram. Patient aware will get audiogram first andsupplied the number. 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 He had ear discomfort associated with some imbalance a couple weeks ago and those symptoms have improved but he feels like he has fluid in his right ear. We discussed that he likely has a middle ear effusion and I suggested either observation or oral steroids. He was comfortable proceeding with a Medrol Dosepak and risks were reviewed. We discussed morelong-term management if this issue persists most notably audiogram and consideration of tube placement. All questions were answered. 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 SEE [id number].PATIENT: ANTWAN FLOWERS LOCATION: C1231 BILL#: [id number] : 53 AGE: SEX: M ORDERED BY: MARCIA HUNT: FLUID COLLECTED: 02/18/18 00:00ANTIBIOTICS AT [place].: RECEIVED : SITE: UNSPECIFIED R E S U L T S GRAM STAIN CANCELLED 02/18/18 20:25 FLUID CULTURE/SM.,BACTERIAL CANCELLED 02/18/18 20:25[facility] Comment on above:Performed By: #### FLUID ####[facility], [place] [address]HWIWZYASJIRLH CULT./SM.BACT.on 02-18-2018 MISCELLANEOUS CULT./SM.BACT.PATIENT: ANTWAN FLOWERS [place] [facility] [place]#: [id number] : 53 AGE: SEX: MORDER#: [id number] ORDERED BY: MARCIA HUNT: MISC COLLECTED: 02/18/18 16:06ANTIBIOTICS AT [place].: RECEIVED : 02/18/18 20:24SITE: R E S U L T S GRAM STAIN FINAL 02/19/18 00:27 NO GRANULOCYTES ORORGANISMS SEEN. MISCELLANEOUS CULT./SM.BACT. FINAL 02/21/18 08:24 ISOLATE1 : Staphylococcus aureus 1+ METHICILLIN(OXACILLIN)SUSCEPTIBLE STAPHYLOCOCCI ARE SUSCEPTIBLE TO SEMI-SYNTHETIC PENICILLINS (OXA CILLIN,NAFCILLIN, ETC),BETA-LACTAM/BETA-LACTAMASE INHIBITOR COMBINATIONS(INCLUDING AMPICILLIN/SULBACTAM, AMOXICILLIN/CLAVULANATE AND PIPERACILLIN/TAZOBACTAM), CARBAPENEMS AND CEPHALOSPORINS APPROVED FOR USE BY THE FDA FOR STAPHYLOCOCCAL INFECTIONS. Organism S aureus Antibiotic BP INTRP Ampicillin R ClindamycinS Ciprofloxacin R Erythromycin R Gentamicin S Levofloxacin R Oxacillin S Penicillin R Trimeth/SulfaS Tetracycline S Vancomycin S S=SUSCEPTIBLE I=INTERMEDIATE R=RESISTANT SDD=SUSCEPTIBLE DOSE DEPENDENT NS=NONSUSCEPTIBLEX=REPORTED IN ERROR ___[facility] CenterComment on above:Performed By: #### MISCC ####[facility], [place] [address]VIHRZ CULTURE/SM.,BACTERIALon [id number] CULTURE/SM.,BACTERIALTEST FLUID CULTURE/SM.,BACTERIAL WAS CANCELLED, 11/26/2017 21:19 Reordered as MISCC. See [id number] results. 11/26/2017 21:19.PATIENT: ANTWAN FLOWERS LOCATION: [address] BILL#: [id number] : 53 AGE: SEX: M ORDERED BY: RUDY HAYNES: FLUID COLLECTED: 11/26/17 00:00ANTIBIOTICS AT [place].: RECEIVED : 11/26/17 20:57SITE: unspecified - right maxillary sinus R E S U L T S GRAM STAIN CANCELLED 11/26/17 21:19 FLUID CULTURE/SM.,BACTERIAL CANCELLED 11/26/17 21:19NoHealthSouth Rehabilitation Hospital of Colorado SpringsComment on above: Performed By: #### FLUID ####[facility] [place], [place] [address]LQJBKOMIHVBLE CULT./SM.BACT.on [id number] CULT./SM.BACT.+misc called to dr. haynes, 11/27/2017 13:46+misc called to dr. haynes, 11/27/2017 13:46PATIENT: ANTWAN FLOWERS LOCATION: [address] BILL#: [id number] : 53 AGE: SEX: M ORDERED BY: RUDY HAYNES: NASRINC COLLECTED: 11/26/17 21:01ANTIBIOTICS AT [place].: RECEIVED : 11/26/17 21:18SITE: unspecified - right maxillary sinus8 R E S U L T S GRAM STAIN FINAL 11/26/17 22:37 NO GRANULOCYTES OR ORGANISMS SEEN. MISCELLANEOUS CULT./SM.BACT. FINAL 11/28/17 15:05 ISOLATE1 : Group A streptococcus 1+ Organism Group A s trep Antibiotic MAURI INTRP Ceftriaxone 0.032 S Penicillin 0.016 S S= SUSCEPTIBLE I=INTERMEDIATE R=RESISTANT SDD=SUSCEPTIBLE DOSE DEPENDENT NS=NONSUSCEPTIBLEX=REPORTED IN ERROR Normal [facility] Salem CountyComment on above:Performed By: #### MISCC ####[facility] [place], [place] [address]RWN Surgical Pathology Departmenton [id number] Surgical Pathology DepartmentName ANTWAN FLOWERS Pathologist: XAVIER AKBAR, MDDate of Procedure:09/12/2017Date Received: 09/12/2017Date Reported 09/25/2017Submitting Physician: XAVIER HAYNES MDLocation: APMISC Other External # FINAL DIAGNOSISA. RIGHT SINUS CONTENTS :-- FRAGMENTS OF RESPIRATORY MUCOSA WITH MUCOSAL EDEMA AND CHRONIC INFLAMMATION.-- BONE WITH REACTIVE CHANGES. B. LEFT SINUS CONTENTS :-- FRAGMENTS OF RESPIRATORY MUCOSA WITH MUCOSAL EDEMA AND CHRONIC INFLAMMATION.-- BONEWITH REACTIVE CHANGES. C. SEPTUM :-- FRAGMENT OF CARTILAGE WITH REACTIVE CHANGES.-- SEPARATE FRAGMENTS OF BONE AND SINONASAL MUCOSA WITH REACTIVE CHANGES. D. MICRODEBRIDER CONTENTS :-- SINONASAL MUCOSA WITH SINGLE FOCUS OF MILD DYSPLASIA IN A BACKGROUND OFEXTENSIVE SQUAMOUS METAPLASIA WITH ACUTE AND CHRONIC INFLAMMATION AND REACTIVECHANGES.-- NEGATIVE FOR MALIGNANCY, SEE COMMENT. COMMENT: The entire specimen was submitted for microscopic examination. Electronically Signed Out By XAVIER AKBAR MD/Fernando the signature on this report, the individual or group listed as making theFinal Interpretation/Diagnosis certifies that they have reviewed this case. Clinical History:Chronic sinusitisSpecimens Submitted As:A: RIGHT SINUS CONTENTS B: LEFT SINUS CONTENTS C: SEPTUM D: MICRODEBRIDER CONTENTS Gross Description:A: Received in formalin, labeled with the patient's name and hospital numberand A- right sinus contents , are multiple, irregular segments of red-browncartilage, bone, and softtissue aggregating to 1.3 x 0.9 x 0.3 cm. Thespecimen is submitted in toto in one cassette following decalcification.LMPB: Received in formalin, labeled with the patient's name and hospital numberand B-left sinus contents , are multiple, irregular segments of light tancartilage, bone, and soft tissue aggregating to 1.3 x 0.4 x 0.2 cm. Thespecimen is submitted in toto in one cassette following decalcification.LMPC: Received in formalin, labeled with the patient's name and hospital numberand C-septum , are multiple, irregular segments of light aguilar cartilage andbone aggregating to 2.3 x 2.1 x 0.8 cm. Axle Bearing Polisher sections are submittedin one cassette following decalcification.LMPD: Received in formalin in a collection device, labeled with the patient's nameand hospital number and D-microdebrider contents , are multiple, irregularsegments of aguilar-brown soft tissue aggregating to 3.0 x 2.8 x 1.5 cm.Axle Bearing Polisher sections are submitted in one cassette.09/23/17D: The remaining tissue is submitted in an additional 3 cassettes.LMPlmp/09/17/2017 [facility] CenterComment on above:Performed By: #### [facility] ####[facility] Surgical Pathology [address] [place] [address] MISCELLANEOUS CULT./SM.BACT.on [id number] CULT./SM.BACT.PATIENT: ANTWAN FLOWERS LOCATION: [address] [place] [address]#: [id number] : 53 AGE: SEX: MORDER#: [id number] ORDERED BY: TJ HAYNESCE: [facility] [place]ED: 07/16/17 17:08ANTIBIOTICS AT [place].: RECEIVED : 07/16/17 23:13SITE: R E S U L T S GRAM STAIN FINAL 07/17/17 15:01 NO GRANULOCYTES OR ORGANISMS SEEN. MISCELLANEOUS CULT./SM.BACT. FINAL 07/19/17 09:34 ISOLATE1 : Pseudomonas aerugi nosa 4+ ISOLATE2 : Staphylococcus aureus 3+ METHICILLIN(OXACILLIN)SUSCEPTIBLE STAPHYLOCOCCI ARE SUSCEPTIBLE TO SEMI-SYNTHETIC PENICILLINS (OXACILLIN,NAFCILLIN, ETC),BETA-LACTAM/BETA-LACTAMASE INHIBITOR COMBINATIONS(INCLUDING AMPICILLIN/SULBACTAM, AMOXICILLIN/CLAVULANATE AND PIPERACILLIN/TAZOBACTAM), CARBAPENEMS AND CEPHALOSPORINS APPROVED FOR USE BY THE FDA FOR STAPHYLOCOCCAL INFECTIONS. Organism Ps aerug S aureus Antibiotic BP INTRP BP INTRP Aztreonam S Ceftazidime S Ciprofloxacin S R Cefepime S Gentamicin S S Levofloxacin S R Piperc/Tazobact S Tobramycin S Ampicillin RClindamycin S Erythromycin R Oxacillin S Penicillin R Trimeth/Sulfa S Tetracycline S Vancomycin S __ S=STOCK SCEPTIBLE I=INTERMEDIATE R=RESISTANT SDD=SUSCEPTIBLE DOSE DEPENDENT NS=NONSUSCEPTIBLEX=REPORTED IN ERROR NormalUH Summit Oaks HospitalComment on above:Performed By: #### MISCC ####[facility] [place] [address]AYJwi 11-30-7591Cijmdlb stimulating hormone (TSH)3.44 m[IU]/LNormal0.44 - 3.98[facility]aks HospitalComment on above:Result Comment: TSH testing is performed using different testing methodology at [facility] than at other [facility]. Direct result comparisons should only be made within the same method.. Patients receiving more than 5 mg/day of biotin may have interference in test results. A sample should be taken no sooner than eight hours after previous dose. Contact [phone] for additional information.Performed By: #### TSH2 ####[facility], [place] [address]AOJVOIOTPOga 03-21-2017 Creatinine0.90 mg/dLNormal0.60 - 1.30[facility] Salem CountyComment on above:Order Comment: [facility], 03/21/2017 12:01Result Comment: Hydroxyurea can cause significant interference with creatinine measurementusing thei-STAT device. An alternate method of creatinine measurement mustbe used in patients treated with hydroxyurea.Performed By: #### CREAT ####[facility], [place] [phone] (non-black) mL/min/{1.73_m2}Normal>60[facility] Salem CountyComment on above:Order Comment: [facility], 03/21/2017 12:01Performed By: #### CREAT ####[facility], [place] [phone] BONE W/CONTRASTon [id number] BONE W/CONTRASTMRN: [id number] Name: ANTWAN FLOWERS STUDY:FACIAL BONE W/CONTRAST 03/21/2017 12:18 pm INDICATION :Signs/Symptoms: Malignant neoplasm of nasal cavity eval for diseaseleft nasal squamous cell carcinoma post partial left Rhinectomy andparamedian forehead flap reconstruction 07/06/2015 with second-stagepedicle takedown 08/03/2015 COMPARISON:03/08/[address], 09/06/[address] ACCESSION N ILIANAER(S):[id number] ORDERING CLINICIAN:FERNANDO GLASER TECHNIQUE:Intravenous contrast enhanced thin cut axial CT images through thefacial bones were obtained and reconstructed in the coronal andsagittal plane. 95 mL Optiray 350 were used for contrast. FINDINGS:Mild soft tissue swelling remains along the left nasal bonesconsistent with previous surgery. No new soft tissue mass in thisarea is noted. There is new loss of bony density along the anterior and lateral leftlacrimal duct since the prior studywith questionable dehiscence ofthe lacrimal canal along the maxillary sinus. There is moderate to severe thickening of the left maxillary sinusmucosa significantly worse than noted previously. The right maxillarysinus has retention cyst; the right maxillary sinus aeration hasimproved from the priorstudy. Orbits: The bony orbits are intact. The orbital contents areunremarkable. Facial Bones: There is no displaced facial bone fracture. Mandible/Temporomandibular Joints: Visualized portions of mandibleand bilateral temporomandibular joints are intact. Paranasal Sinuses/Mastoids: The nasal septum deviates slightly to theleft between the left middle and inferior turbinates. No bonydehiscences along the cribriform plates are noted. The olfactoryfossa are 5 mm in depth bilaterally. There are nobony dehiscencesalong the lamina papyracea and no super orbital air cells extendingover the notchesfor the anterior ethmoid arteries. The rightsphenoid sinus has mild mucosal thickening. No onodi cell is noted.The anterior ethmoid air cells have mild mucosal thickening. Frontalsinuses are small but normally aerated. IMPRESSION:1. There is loss of bony density along the anterolateral aspects ofthe left lacrimal canal with questionable dehiscence between thecanal and a left maxillary sinus. There is significantly increasedmucosal thickening of the left maxillary sinus since the prior study.Thesoft tissues over the left medial canthus are mildly thickenedsimilar to the prior study; no new mass in this area is noted. Whilethe findings may be related to infection, underlying tumor cannot beexcluded.2. Large retention cyst is present in the maxillary sinus; the rightmaxillary sinus aerationhas overall improved from prior study.3. Small amounts of mucus/mucosal thickening are noted in theethmoidair cells and right sphenoid sinus.Electronically signed by: AUST[place] MUSE PHYSICIANLakes Medical Center Vital Signs Date TimeVital SignValuePerforming BdezcobepYnsfpbix56-54-0311 09:26-0400Body jeomjx912.7 cmRyan Longo MD Work Phone: NOBates [facility] Memorial HospitalAyxbtoalsn00-20-5276 09:26-0400Body mass index (BMI) [Ratio]23.57 kg/i1CgsxhrRyan Longo MD Work Phone: [facility] WashingtonPhqpselrlp61-24-8229 09:26-0400Body zstsel48.31 kgRyan Longo MD Work Phone: 1(807)[facility]7469[facility] WashingtonUypbljzrny95-77-0647 09:26-0400Diastolic blood rakwhwmj92 mm[Hg]Ryan Longo MD Work Phone: 1(601)[facility] [place], [place] [address]Puanpcwgfb10-55-3601 09:26-0400Heart rate59 /min Ryan Longo MD Work Phone: 1(570)[facility] [place], [place] [address]Vifwsbhmqq38-30-7054 09:26-0337UaQ8% (BldA) [Mass fraction]97 %Ryan Longo MD Work Phone: 1(421)[facility] [place], [place] [address]Avuhqfjtey58-43-6988 09:26-0400Systolic blood ncmsnkyf102 mm[Hg]Ryan Longo MD Work Phone: 1(159)[facility] [place], [place] [address]Adfgzavusm02-10-1790 09:42-0400Body qinvxp375.7 cmRyan Longo MD Work Phone: 1(597)[facility] [place], [place] [address]Yuljkvihqn21-17-4257 09:42-0400Body mass index (BMI) [Ratio]24.63 kg/n3UafofbRyan Longo MD Work Phone: 1(926)[facility] [place], [place] [address]Phermqwtgn78-47-2767 09:42-0400Body ypiagg41.48 kgRyan Longo MD Work Phone: 1(080)[facility] [place], [place] [address]Gfjpciutvr60-40-2364 09:42-0400Diastolic blood sgggqefv66 mm[Hg]Ryan Longo MD Work Phone: 1(015)[facility] [place], [place] [address]Xonpdseksa28-99-8508 09:42-0400Heart rate56 /min Ryan Longo MD Work Phone: 1(293)[facility] [place], [place] [address]Gwfgrcpvab74-20-8049 09:42-7356WlM3% (BldA) [Mass fraction]96 %Ryan Longo MD Work Phone: 1(281)[facility]-7567[facility] WashingtonDbcoevbjov39-07-7890 09:42-0400Systolic blood kfbigwri795 mm[Hg]Ryan Longo MD Work Phone: 1(273)[facility]-[address] [place], [place] [address]Wwlzskjhhk75-94-8782 08:52-0400Body kdiaid056.7 [facility]05-10-2023 08:52-0400Body afkkdg17.38 [facility]Pro[facility]05-10-2023 08:52-0400Heart rate53 /minPacc [facility]05-10-2023 08:52-6882IfC9% (BldA) [Mass fraction]98 %[facility]01-13-2023 10:24-0500Body .[address]01-13-2023 10:24-0500Body zqoxln66.[address]01-13-2023 10:24-0500Heart rate61 /minPa[address]01-13-2023 10:24-4630WbI8% (BldA) [Mass fraction]98 %[facility] 2[facility] Encounters Encounter DateEncounter TypeCare ProviderFacilityStart: 07-13-2025 End: 65-96-7497Rmyydb Gavi Longo MD Work Phone: noMS Jameel Mcfadden MedinceStart: 07-13-2025 End: 66-08-8116Qjpjhr Gavi Longo MD Work Phone: NOMS Jameel Mcfadden MedinceStart: 07-13-2025 End: 87-06-3168Ufvcv of hemosiderin, quantRyan Longo MD Work Phone: NOXB HealthcareStart: 07-13-2025 End: 51-64-1317Dlcsjoi encounter procedureRyan Longo MD Work Phone: NOXT Jameel Mcfadden MedinceComment on above:Routine general medical examination at health care facility (Primary Dx); ACP (advance care planning); Other hyperlipidemia; Flu vaccine need; Prostate cancer screening; Hx of smokingStart: 07-13-2025 End: 71-42-2023duanjaoepqXPJKYG B BERRYNot AvailableStart: 03-17-2025 End: 16-79-4336ayqihqiefxTEDSE M ALLENNot AvailableStart: 12-21-2024 End: 32-74-0182Hvewqt Lashawn Gan MD Work Phone: noms NB OPHTStart: 12-21-2024 End: 32-68-7097Ctffug Lashawn Gan MD Work Phone: noms NB OPHTStart: 12-21-2024 End: 56-48-5614Ssanzv follow up visit related to original Rusty Gan MD Work Phone: NOYK NB OPHTComment on above:Postoperative care for cataract (Primary Dx)Start: 12-21-2024 End: 01-86-2445zfpnnagjxmZCCQN M ALLENNot AvailableStart: 11-30-2024 End: 31-36-9053ryaonbympjMIWKE M ALLENNot AvailableStart: 11-24-2024 End: 89-34-4582Pdqdzh Lashawn Gan MD Work Phone: noms NB OPHTStart: 11-24-2024 End: 86-85-4283Dkdcrw Lashawn Gan MD Work Phone: noms NB OPHTStart: 11-24-2024 End: 42-91-1309bxywkjstcgSSPJO M ALLENNot AvailableStart: 11-24-2024 End: 63-50-2871Crfnvc follow up visit related to original Rusty Gan MD Work Phone: noms NB OPHTComment on above:Postoperative care for cataract (Primary Dx)Start: 11-16-2024 End: 94-84-1468Opacon Lashawn Gan MD Work Phone: noms NB OPHTStart: 11-16-2024 End: 12-08-5399Klbcaq Lashawn Gan MD Work Phone: NOPI NB OPHTStart: 11-16-2024 End: 82-09-7510Zqfsjg follow up visit related to original Rusty Gan MD Work Phone: NOBD NB OPHTComment on above:Postoperative care for cataract (Primary Dx)Start: 11-16-2024 End: 71-68-5485scvvovdidiOKFLO M ALLENNot AvailableStart: 10-26-2024 End: 30-60-6049Gnxjiz Lashawn Gan MD Work Phone: noms NB OPHTStart: 10-26-2024 End: 10-75-3349Wuqyyl Lashawn Gan MD Work Phone: NODE NB OPHTStart: 10-26-2024 End: 00-92-3275Uipjsx follow up visit related to original Rusty Gan MD Work Phone: NOMS NB OPHTComment on above:Postoperative care for cataract (Primary Dx)Start: 10-26-2024 End: 21-90-6901twbxkwcvzdEKQFB M ALLENNot AvailableStart: 10-20-2024 End: 42-10-5356Iwfjey Lashawn Gan MD Work Phone: NOOR NB OPHTStart: 10-20-2024 End: 56-81-7532Wairkb Lashawn Gan MD Work Phone: NOYO NB OPHTStart: 10-20-2024 End: 36-57-7175htrehxvkcjOXNQP M ALLENNot AvailableStart: 10-20-2024 End: 40-74-4726Vfhdzk follow up visit related to original Rusty Gan MD Work Phone: NOMS NB OPHTComment on above:Postoperative care for cataract (Primary Dx)Start: 10-05-2024 End: 05-24-8866ZfxwacWzrdi M Allen MD Work Phone: NOMS NB OPHTComment on above:Cortical age-related cataract of both eyes (Primary Dx)Start: 09-27-2024 End: 63-30-4375Tgjuni Lashawn Gan MD Work Phone: NOBZ NB OPHTStart: 09-27-2024 End: 48-02-4489Xvoyvw Lashawn Gan MD Work Phone: noms NB OPHTStart: 09-27-2024 End: 47-32-6175jlglufiwzoPURNQ M ALLENNot AvailableStart: 06-30-2024 End: 36-39-3861Yjahiz flowsLluvia Longo MD Work Phone: NOMS CI FMStart: 06-30-2024 End: 24-90-9244Iqeqjk flowsLluvia Longo MD Work Phone: NOMS CI FMStart: 06-30-2024 End: 13-60-9333Uodxo of hemosiderin, quantRyan Longo MD Work Phone: [facility] Work Phone: Start: 06-30-2024 End: 08-17-6878Favzsui encounter procedureRyan Longo MD Work Phone: noms CI FMComment on above:Routine general medical examination at health care facility (Primary Dx); ACP (advance care planning); Flu vaccine need; Hx of smoking; Prostate cancer screening; Screening for viral disease; Other hyperlipidemia (CMS/HCC); Benign prostatic hyperplasia without lower urinary tract symptomsStart: 08-05-2023 End: 27-71-3426eurdbloebwDXHX DINGFacility:[facility] Companytart: 07-21-2023 End: 55-23-8822oivjjmkpsxXMDOQDI BYRNEFacility:[facility] Companytart: 07-21-2023 End: 80-36-8673Wevgdxc encounter procedureNurse Facial PlasticsOtolaryngology Comment on above:Visit for suture removal (Primary Dx)Start: 07-11-2023 End: 61-37-0171rvrfcswbdoRTBNOJD M HOYFacility:[facility] HospitalStart: 02-25-2023 End: 50-95-7151hdbdxhzlmcDXOOTBR BYRNEFacility:[facility] Companytart: 02-25-2023 End: 86-79-6037Evobqfl encounter procedurePaemma Garcia MD Work Phone: OtolaryngologyComment on above:Skin cancer (Primary Dx); Surgical followup visit; Nasal valve stenosisStart: 02-14-2023 End: 74-08-7372nbpavnkoabFRIF DINGFacility:[facility] Companytart: 02-07-2023 End: 29-82-8258tubywineziHCABNLQ BYRNEFacility:[facility]tart: 01-29-2023 End: 33-86-4974nmfikybfixUUGLNTB BYRNEFacility:[facility] Companytart: 01-29-2023 End: 38-17-1222Ynznprsqz to [facility] HospitalSHEFFIELDStart: 01-29-2023 End: 98-03-0419jbixcvesdzQyqg VirtualPre AnesthesiaComment on above:Preop examination (Primary Dx); Other hyperlipidemia; History of COVID-19Start: 01-29-2023 End: 58-58-2175Fdglmnsgckvon examination [facility] CenterPre AnesthesiaStart: 24-68-6127iwoqtphvjrWzopxgw Byrne MD Work Phone: OtolaryngologyComment on above:Up coming appt,Start: 12-03-2022 End: 95-19-2894ckemwhozzqBLMXCBA M HOYFacility:[facility] Companytart: 11-22-2022 End: 34-77-1155syfqftzpwrRQVIDKC M HOYFacility:[facility] Companytart: 10-11-2022 End: 99-31-8488xhtunobcflEZLSFVJ M HOYFacility:[facility] Companytart: 42-31-5252Jaliwzead encounterKarlo Zambrano APRN.CNP Work Phone: Pre AnesthesiaComment on above:PreOp CallStart: 10-04-2022 End: 36-99-0121bwmxjdpmeiKivtmChris Zambrano APRN.CNP Work Phone: Pre AnesthesiaComment on above:PACCPreop examination (Primary Dx); Pre-op evaluation; Other hyperlipidemia; Nasal deformity, acquired; Benign prostatic hyperplasia with weak urinary streamStart: 00-43-6064F-mail encounter from iLnh Zambrano APRN.CNP Work Phone: [facility] 2Start: 73-70-3897Xezvnlcjf encounterLynda Kenya PATEL.V/[employer] SIGNAL OFFICER Work Phone: Pre AnesthesiaComment on above:PreOp CallStart: 10-04-2022 End: 19-23-7702Mzconmope to [facility] 1 Virtual 2[facility] 1Start: 10-04-2022 End: 84-77-1113Wgrrmrdykeeyd examination doneNav[facility] 2Pre AnesthesiaStart: 10-01-2022 End: 77-89-6065jsjrvwkelmLMHUKDX BYRNEFacility:[facility] Companytart: 10-01-2022 End: 28-74-8396Adxsawn encounter procedurePatricshelton Garcia MD Work Phone: OtolaryngologyComment on above:SCCA (squamous cell carcinoma) of skin (Primary Dx)Start: 01-17-2022 End: 08-72-9532ndlmffpqicAU DOUGLAS HOYFacility:S3Veajj: 78-94-3109Iccarzwnngbatsheva HAYNESFacility:9479Start: 81-78-7985LkdmccdpdpZPNQPDUNoemi HAYNES Facility:[facility]: 09-12-2017 End: 63-41-0581MmdtmlrlzqVLJJGIMNoemi HAYNESFacility:[facility] SurgStart: 14-49-9354UzedglyefkBhkx A ZenderFacility:[facility] Procedures DateProcedureProcedure DetailPerforming ClinicianStart: 03-17-2025 End: 65-21-0837Benma medical xm&eval intermediate estab ptPCO (posterior capsular opacification), bilateralYuli Gan MD Work Phone: comment on above:PCO (posterior capsular opacification), bilateral (Primary Dx); PseudophakiaStart: 09-27-2024 End: 72-60-4531Nhnes medical xm&eval compre new pt 1/> vstCortical age-related cataract of both eyesYuli Gan MD Work Phone: comment on above:Cortical age-related cataract of both eyes (Primary Dx)Start: 84-65-8860Cfjiw 1995 panel - Serum or PlasmaNurse PlasticsStart: 16-97-9698VWW screeningDR MANNY RICHMONDYComment on above:Performed By: #### PSASC #### [facility] [address] [place] [address] Dr. Pilar WebsterStart: 01-18-6374Ifogptgkas nose & accessory sinuses nosKENNETH RODRIGUEZStart: 09-49-0271Ortxx/sinus ndsc w/rmvl tiss from frontal sinusXAVIER HAYNESStart: 98-00-2775Lbvyr/sinus ndsc w/total ethoidectomyXAVIER HAYNES Start: 37-27-3460Yuk/sinus ndsc max antrost w/rmvl tiss max sinusKENNETBelinda JONIStart: 45-85-4511Xsp/sinus ndsc sphendt rmvl tiss sphenoid sinusHANKBRIDGETBelinda HAYNESStart: 10-57-8954Zrvssvbebcn/submucous resecj w/wo cartilage grfPENNIEBelinda JONIStart: 86-52-7222Czpehkj cptr asstd px extradural cranialXAVIER JONIStart: 38-73-0101Uaefjnbj procedure accessory sinusesXAVIER HAYNES Start: 62-40-5433BgeivcyppxfFrqyql Berry MD Work Phone: Plan of Treatment DateCare ActivityDetailAuthorStart: 87-52-9998Suzri 1995 panel - Serum or Plasma Lipid ScreeningTwin City Hospitaltart: 96-83-7420PAJKEHBA CANCER SCREENING DISCUSSIONPROSTATE CANCER SCREENING DISCUSSIONCleohio state east hospital ClinicStart: 07-13-2026 Medicare Annual Wellness (AWV)Medicare Annual Wellness (AWV)[facility] Start: 46-38-6117UIOSHGBC SCREENDIABETES SCREENTwin City Hospitaltart: 10-11-2025 Diabetes ScreeningDiabetes ScreeningTwin City Hospitaltart: 07-13-2025 End: 16-67-5861Hwtjcmkrvutvu metabolic 2000 panel - Serum or PlasmaComprehensive metabolic panel Lab Routine Other hyperlipidemia Expected: 07/13/2025 (Approximate), Expires: 07/13/2026NOMS HealthcareComment on above:Expected: 07/13/2025 (Approximate), Expires: 07/13/2026Start: 07-13-2025 End: 92-65-1053NZ Chest for screening WO contrastCT lung screening low dose Imaging Routine Hx of smoking Expected: 07/13/2025 (Approximate), Expires: 07/13/2026[facility] Work Phone: Comment on above:Expected: 07/13/2025 (Approximate), Expires: 07/13/2026Start: 07-13-2025 End: 96-33-2593Oplvy 1996 panel - Serum or PlasmaLipid panel Lab Routine Other hyperlipidemia Expected: 07/13/2025 (Approximate), Expires: 07/13/2026[facility] HealthcareComment on above:Expected: 07/13/2025 (Approximate), Expires: 07/13/2026Start: 07-13-2025 End: 88-20-4807Vctjxbp encounter qwiqkodth22/22/2025 9:30 AM EDT Office Visit [facility] [address] [facility] [address] [place] [phone] Ryan Longo MD [address] [facility] [address] [place] [address] [facility] Jameel [facility] AugustanceComment on above:ArrivedStart: 10-09-2025Medicare Annual Wellness (AWV)Medicare Annual Wellness (AWV)[facility]OM HealthcareStart: 95-60-3737Duorgtttk vaccinationInfluenza Vaccine (#1)NOM HealthcareStart: 33-41-8409Znqwrnktj for malignant neoplasm of colonNOMS HealthcareStart: 12-21-2024 End: 72-60-1961Oqjzwvg encounter kduhiareu02/01/2025 9:00 AM EDT Office Visit [facility] [address] [place] [phone] Yuli Gan MD [address] [place] [address] ArrivedNOMS NB OPHTComment on above:ArrivedStart: 11-24-2024 End: 55-65-1328Lhjqhky encounter yvejjekwq04/05/2025 1:45 PM EST Office Visit [facility] [address] [place] [phone] Yuli Gan MD [address] [place] [address] NOMS NB OPHTStart: 11-16-2024 End: 39-00-2807Noivjod encounter cjbqsocuk38/25/2025 10:30 AM EST Office Visit [facility] [address] [place] [phone] Yuli Gan MD [address] [place] [address] ArrivedNOMS NB OPHTComment on above:ArrivedStart: 10-26-2024 End: 29-45-9559Brdgpki encounter yhmijtzwe59/04/2025 10:00 AM EST Office Visit [facility] [address] [place] [phone] Yuli Gan MD [address] [place] [address] ArrivedNOMS NB OPHTComment on above:ArrivedStart: 10-20-2024 End: 95-76-4247Jstslnv encounter yquvbguyr79/29/2025 1:15 PM EST Office Visit [facility] [address] [place] [address] Yuli Gan MD [address] [place] [address] N[facility] NB OPHTStart: 09-27-2024 End: 31-08-9919Zxdhzdg encounter iwjxhqgyv99/06/2025 10:15 AM EST Office Visit [facility] [address] [place] [address] Yuli Gan MD [address] [place] [address] [facility]rivedSAN [facility] OPHTComment on above:ArrivedStart: 07-05-2024 DIABETES SCREENDIABETES SCREENGreenleaf ClinicStart: 06-30-2024 End: 00-72-9506Jvpoyssgogkfl metabolic 2000 panel - Serum or PlasmaComprehensive metabolic panel Lab Routine Other hyperlipidemia (CMS/HCC) Benign prostatic hyperplasia without lower urinary tract symptoms Expected: 06/30/2024 (Approximate), Expires: 06/30/2025[facility] HealthcareComment on above:Expected: 06/30/2024 (Approximate), Expires: 06/30/2025Start: 06-30-2024 End: 58-73-0225GI Chest for screening WO contrastCT lung screening low dose Imaging Routine Hx of smoking Expected: 06/30/2024, Expires: 06/30/2025[facility] Healthcare Work Phone: Comment on above:Expected: 06/30/2024, Expires: 06/30/2025Start: 06-30-2024 End: 23-75-8883Akbujxczw C virus Ab [Presence] in Serum or Plasma by Immunoassay Hepatitis C antibody Lab Routine Screening for viral disease Expected: 06/30/2024 (Approximate), Expires: 06/30/2025NONJ HealthcareComment on above: Expected: 06/30/2024 (Approximate), Expires: 06/30/2025Start: 06-30-2024 End: 23-39-3251Rcrxd 1996 panel - Serum or PlasmaLipid panel Lab Routine Other hyperlipidemia (CMS/HCC) Expected: 06/30/2024 (Approximate), Expires:06/30/2025 NOMS HealthcareComment on above:Expected: 06/30/2024 (Approximate), Expires: 06/30/2025Start: 06-30-2024 End: 94-38-7435Aywtuyf encounter hityiqwzc78/09/2024 10:00 AM EDT Office Visit [facility] [address] [facility] [address] [place] [phone] Ryan Longo MD [address] [facility] [address] [place], [place] [id number] ArrivedNOMS CI FMComment on above:ArrivedStart: 05-23-2024 Influenza vaccinationTwin City Hospitaltart: 95-03-5460Uygoh-19 Vaccine ( season)Covid-19 Vaccine ( season)[facility] Hospitaltart: 76-57-0262Lvxcwkyse vaccinationInfluenza Vaccine (#1)[facility] Hospitaltart: 10-04-2022 End: 05-74-4759GHH W Auto Differential panel - BloodCBC + DIFF Lab Routine Preop examination Expected: 10/04/2022, Expires: 12/04/2022[facility] Work Phone: comment on above:Expected: 10/04/2022, Expires: 12/04/2022Start: 10-04-2022 End: 19-58-4309Nhhorvrlaesyk metabolic 2000 panel - Serum or PlasmaCOMP METABOLIC PANEL Lab Routine Preop examination Expected: 10/04/2022, Expires: 12/04/2022[facility] Work Phone: comment on above:Expected: 10/04/2022, Expires: 12/04/2022Start: 66-40-9869HLHEKRC DIRECTIVE DISCUSSIONADVANCE DIRECTIVE DISCUSSIONTwin City Hospitaltart: 16-15-0713LGLQVMFFIT ASSESSMENTDEPRESSION ASSESSMENTCleSouthview Medical Centertart: 32-50-1050FPQFF-19 VACCINE (4 - Booster for Moderna series)COVID-19 VACCINE (4 - Booster for Moderna series)[facility] Start: 03-13-0840Bqkxmmbcmjgn Vaccine: 65+ (1 - PCV)Pneumococcal Vaccine: 65+ (1 - PCV)[facility] Hospitaltart: 52-79-4447Dlqemcqzxtbx Vaccine: 65+ Years (1 of 1 - PCV)Pneumococcal Vaccine: 65+ Years (1 of 1 - PCV)[facility]OM[facility] HealthcareStart: 62-16-0838RKOTVYOQQXHT: 65+ (1 - PCV)PNEUMOCOCCAL: 65+ (1 - PCV)[facility] Start: 90-46-1088DPB Vaccine (1 - 1-dose 60+ series)RSV Vaccine (1 - 1-dose 60+ series)[facility]art: 26-68-4713Zircypipg vaccinationLUNG CANCER SCREENINGTwin City Hospitaltart: 80-96-7015Rjkhbzifkfqx Vaccine: 65+ Years (1 of 1 - PCV)Pneumococcal Vaccine: 65+ Years (1 of 1 - PCV)[facility] HealthcareStart: 49-49-6232HPFAHUOB VACCINE (1 of 2)SHINGRIX VACCINE (1 of 2)[facility] Start: 71-68-8022JIBKQLDFZ (FIT-DNA)COLOGUARD (FIT-DNA)[facility]tart: 54-05-5380XiwpfvdokjrMSHJPKJHBXAHgzupxmil ClinicStart: 16-11-3487EVSZCYLCSS CANCER SCREENINGCOLORECTAL CANCER SCREENINGTwin City Hospitaltart: 43-01-0087FZ COLONOGRAPHYCT COLONOGRAPHYTwin City Hospitaltart: 63-86-7508FNRRM OCCULT BLOOD FECAL OCCULT BLOODTwin City Hospitaltart: 70-61-7153XTTJQITWGZUZOQWUUUBYJUGGJQ [facility]tart: 03-97-1187PMLWB SCREENLIPID SCREENTwin City Hospitaltart: 46-95-6787Xknle microalbumin profileTwin City Hospitaltart: 46-81-5606GNXSAGLDC C SCREENINGHEPATITIS C SCREENINGTwin City Hospitaltart: 39-42-6076JLKWVFTGO AORTIC ANEURYSM SCREENINGABDOMINAL AORTIC ANEURYSM SCREENINGTwin City Hospitaltart: 53-99-0157Tysxwhzgw for malignant neoplasm of colonNONJ HealthcareProstate specific Ag [Mass/volume] in Serum or PlasmaPSA Lab Routine Prostate cancer screening Ordered: 06/30/2024[facility] HealthcareComment on above:Ordered: 06/30/2024 Prostate specific Ag [Mass/volume] in Serum or PlasmaPSA Lab Routine Prostate cancer screening Ordered: 07/13/2025[facility] HealthcareComment on above:Ordered: 07/13/2025 [facility]IONH[facility]AV ORSt[facility] Immunizations Immunization DateImmunizationNotesCare ZwoxduxkNzhetjjm07-40-7946mqybghrpj, high dose seasonal, preservative-Cezar Longo MD Work Phone: [facility] WashingtonYuijvzeocv07-08-0223Htmbxmxcf, High-dose Seasonal, Quadrivalent, Preservative Cezar Longo MD Work Phone: [facility] WashingtonRstctlrfkb99-92-2770aqvaasetl virus vaccine, unspecified formulationRyan Longo MD Work Phone: [facility] WashingtonNmgfbiyiji25-09-2125obtglv vaccine recombinant Ryan Longo MD Work Phone: [facility] WashingtonQnobibguuy48-44-5507Yyydsapro, Seasonal, Quadrivalent, AdjuvantBrooke Longo MD Work Phone: [facility] WashingtonSithnzbari57-16-8767argugi vaccine recombinant Ryan Longo MD Work Phone: [facility] WashingtonGgcinoeplg48-13-6020pdmwwwvff virus vaccine, unspecified formulationRyan Longo MD Work Phone: [facility] WashingtonFjtvdligrj86-39-0377Gxcobwehp, Seasonal, Quadrivalent, AdjuvantBrooke Longo MD Work Phone: [facility] WashingtonLlawaacgtj15-15-4017kpjcdevry virus vaccine, unspecified formulationNThe [facility]11-03-2021Influenza, Seasonal, Quadrivalent, AdjuvantBrooke Longo MD Work Phone: [facility] WashingtonUpeggegxfq75-18-5820Ixmvfnyld, Seasonal, Quadrivalent, AdjuvantedDryan Longo MD Work Phone: [facility] WashingtonPykwjlklzj06-40-5796ncocwpzhi, high dose seasonal, preservative-Cezar Longo MD Work Phone: [facility] WashingtonEaluzsmgex37-71-8633Xfmlmnlfp, injectable, Madin [place] Canine Kidney, preservative free, quadrivalentRyan Longo MD Work Phone: [facility] WashingtonPpzajtummj06-90-1138fmehvdojc, injectable, quadrivalent, preservative Cezar Longo MD Work Phone: [facility] WashingtonFrskulpksm96-87-0767btriivime, injectable, quadrivalent, preservative Cezar Longo MD Work Phone: NOBates County Memorial HospitalTcbiovupwu06-06-2072uaxurkcuc, seasonal, injectable, preservative Cezar Longo MD Work Phone: [facility] Healthcare Payers DatePayer CategoryPayerPolicy [id number] [id number] Health Insurance [id number] [id number] 1960 [id number] [id number] [id number] 2..840.1.494519.3.579.2.835375-75-9773Xattygq [id number] 2..840.1.738207.3.57[id number] [id number] 2.16.840.1.893743.3.57[id number] [id number] 2.16.840.1.647458.3.57[id number] 2.16.840.1.826965.3.57[id number] 2.16.840.1.015427.3.57[id number] [id number] Social History DateTypeDetailFacilityStart: 10-01-2022 End: 81-07-8759Wzaopnl smoking status NHISEx-smokerTwin City Hospitaltart: 09-22-1989 End: 74-54-4305Mdwynfe of tobacco useCurrent smokerTwin City Hospitaltart: 09-22-1989 End: 73-93-9747Arbzgxl of tobacco useCigarette SmokerTwin City Hospitaltart: 10-01-2022 End: 76-91-0605Yhvdyrlabi smoked current (pack per day) - Reported0.8[facility] HealthcareStart: 10-01-2022 End: 07-59-2812Mzjipcm use and exposureSmokeless tobacco non-userTwin City Hospitaltart: 10-01-2022 End: 91-78-9513Mideqrd intakeCurrent drinker of alcohol (finding)[facility] Hospitaltart: 06-11-1391Xbzparg Commentsocial/occTwin City Hospitaltart: 19-10-8427Bfz Assigned At BirthMaleCselect medical specialty hospital [facility] ClinicStart: 76-02-9286Uxlyxxd Commentonce per month or lessTwin City Hospitaltart: 02-25-2023 End: 11-19-4447Kmsgyxj use panelPRIMARY CHILDREN'S HOSPITAL HealthcareStart: 84-58-2694Njzlywlg Score (1-100), lower number is lower hbml74SzgfcjkagTwin City Hospitaltart: 98-82-4722Fxaqrc identityIdentifies as male gender (finding)[facility]tart: 06-20-2021 Sexual orientationHeterosexual (finding)[facility] HospitalWithin the last year, have you been afraid of your partner or ex-partner?NoNOMS HealthcareDo you belong to any clubs or organizations such as jewish groups, unions, fraternal or athletic groups, or school groups?YesNOMS HealthcareAre you now , , , , never or living with a partner?MarriedNOMS HealthcareHow often to you have a drink containing alcohol?2-4 times a month N[facility] HealthcareHow often do you have 6 or more drinks on 1 occasion?NeverNOMS HealthcareDo you feel stress - tense, restless, nervous, or anxious, or unable to sleep at night because yourmind is troubled all the time - these days [OSQ] Not at allNOMS Healthcare(I/We) worried whether (my/our) food would run out before (I/we) got money to buy more.Never trueNONJ HealthcareStart: 05-22-2023 Sexual orientationChoose not to discloseNONJ HealthcareHow many standard drinks containing alcohol do you have on a typical day?1 or 2NOMS HealthcareStart: 13-22-4157Fdubobz smoking status NHISOccasional tobacco smokerNOBates County Memorial Hospital Medical Equipment Procedure CodeEquipment CodeEquipment Original TextEquipment IdentifierDatesGrft Costal Cartilage 5-8cm - [id number]: 55-54-9161Nbe-Of-A-Kind Implant - [id number]: 80-16-5229Brrlpj [id number]_iro Start: 07-11-2023 Functional Status RmrzPedzxbujoxMnpnhaHabsotlh21-96-3138Qpqqhcv Health Questionnaire 2 item (PHQ- 2) [Reported][facility] Clinical Notes 10-01-2022 to 07-13-2025 Note Date & XlqqLhriNkhhwees57-31-8872 History of Present illness Narrative* Ryan Longo MD - 07/13/2025 9:30 AM EDT Images from the original note were not included. Subjective : Chief Complaint: Antwan Flowers is an 70 y.o. male here [...] Do you have a medical power of staff attorney?: (Patient-Rptd) (P) Yes Who is your medical power of staff attorney?: (Patient-Rptd) (P) Objective : BP 128/72 Pulse 59 Ht 5' 8 Wt 155 lb SpO2 97% BMI 23.57 kg/m No results found. Physical Exam Constitutional: General: [...] Due Pneumococcal Vaccine: 65+ Years (1 of 1 - PCV) Never done Colorectal Cancer Screening [...] - Flu vaccine, high dose seasonal, PF (PFF528) (Fluzone High Dose) No follow-ups on file. Orders Placed This Encounter Procedures Flu vaccine, high dose seasonal, PF (YMD331) (Fluzone High Dose) Electronically signed by Ryan Longo MD on July 13, 2025 documented in this [facility]06-26-2025 History of Present illness Narrative* Yuli Gan MD - 03/17/2025 10:15 AM EDT Assessment/Plan PCO OU: (Posterior Capsule Opacification) Can be observed without intervention if PCO is not visually significant. Nd:YAG laser capsulotomy may be considered if impairment of vision rises to a level that dose not meet the patient's functional needs or interferes with activities of daily living. Risks, benefits and alternatives to the procedure will be reviewed. If the patient has undergone Nd:YAG laser capsulotomy, they are to notify their cable former promptly if they have asignificant change in symptoms, such as flashes of light (photopsia), an increase in floaters, lossof visual field or decrease in visual acuity. documented in this [facility]04-01-2025 History of Present illness Narrative* Yuli Gan MD - 12/21/2024 9:00 AM EDT Assessment/Plan s/p CE OS (1mth): Patient should be close to off all post-op meds. Pt. received final refraction for this eye today. documented in this [facility]03-05-2025 History of Present illness Narrative* Yuli Gan MD - 11/24/2024 1:45 PM EST Assessment/Plan s/p CE OS (POD #1): Patient provided with post-op form. Instructed to continue drops as well as shield. Instructed to call immediately with increased pain, redness, decreased vision, questions or concerns. documented in this [facility]02-25-2025 History of Present illness Narrative* Yuli Gan MD - 11/16/2024 10:30 AM EST Assessment/Plan s/p CE OD (1mth): Patient should be close to off all post-op meds. Pt. received final refraction for this eye today. documented in this [facility]02-04-2025 History of Present illness Narrative* Yuli Gan MD - 10/26/2024 10:00 AM EST Assessment/Plan s/p CE OD (POD #7): Patient provided with post-op form. Instructed to continue drops. Discontinue eye shield. Instructed to call immediately with increased pain, redness, decreased vision, questions or concerns. documented in this [facility]01-29-2025 History of Present illness Narrative* Yuli Gan MD - 10/20/2024 1:15 PM EST Assessment/Plan s/p CE OD (POD #1): Patient provided with post-op form. Instructed to continue drops as well as shield. Instructed to call immediately with increased pain, redness, decreased vision, questions or concerns. documented in this [facility]01-06-2025 History of Present illness Narrative* Yuli Gan MD - 09/27/2024 10:15 AM EST Assessment/Plan Visually Significant Cataract, OU: I discussed the risks, benefits, alternatives, and expectations of cataract surgery. A complete ophthalmic exam was performed and it was determined that the cataracts were a primary source of vision decline, affecting activities of daily living, nec essitating removal. Limited vision post-surgery may occur with pre-existing conditions affecting other areas of the eye or the brain was explained and the patient displayed an understanding. The overall objective is to improve ADLs, not eliminate glasses or restore vision to 20/20. Tests were reviewed - the different lens options were explained including the gmz-jo-ozxcmc fees for any upgrades. Intraocular lens (IOL) selection may be altered either prior to or during the procedure based on the doctor's discretion including reverting to a traditional intraocular lens (IOL). They understood that there will exist the potential of glasses prescription need post surgery for near, distance or poss ibly both. The patient stated a full understanding and a desire to proceed with the procedure. The patient received cataract measurements and had any additional questions answered. Intraoperative Floppy Eyelid Syndrome (IFIS): The patient currently or has in the past taken a medication, such as Flomax, that increases the likelihood of encountering IFIS during there case. This condition was discussed with them and precautions will be taken, such as using a Malyugin Ring, during the surgery to stabilize this. However, the risk remains that a complication may occur due to thiscondition. - A complete exam was performed including a physical exam: General: AAOx3 and NAD, Lungs: Clear, Heart: RRR, Abdomen: S/NT/ND, Extremities: no pitting edema. documented in this [facility]10-09-2024 History of Present illness Narrative* Ryan Longo MD - 06/30/2024 10:00 AM EDT Images from the original note were not included. Subjective : Chief Complaint: Antwan Flowers is an 69 y.o. male here for an annual wellness visit. I have reviewed and reconciled the history and medication list with the patient today. Current Outpatient Medications Medication Sig Dispense Refill simvastatin (Zocor) 40 MG tablet TAKE 1 TABLET BY MOUTH EVERYDAY AT BEDTIME 100 tablet 3 tamsulosin (Flomax) 0.4 MG 24 hr capsule Take 1 capsule (0.4 mg) by mouth in the morning. 90 capsule 3 No current facility-administered medications for this visit. Review of Systems List of current healthcare providers: Patient Care Team: Ryan Longo MD as PCP - General (Internal Medicine) Medicare Annual Visit Over the past 2 weeks, how often have you been bothered by any of the following problems? Little interest or pleasure in doing things: (P) Not at all Feeling down, depressed, or hopeless: (P) Not at all Patient Health Questionnaire-2 Score: (P) 0 Booker Fall Risk History of Falling, Immediate or Within 3 Months: (P) No Secondary Diagnosis: (P) No Intravenous Therapy/Heparin Lock: (P) No Health Risk Assessment Form Do you need help eating, bathing, using the toilet, dressing, or getting around your home?: (P) No Can you prepare your own meals?: (P) Yes Can you do your own housework without help?: (P) Yes Can you shop for groceries or clothes without help?: (P) Yes Do you exercise for about 20 minutes 3 or more days a week?: (P) Yes How confident are you that you can control and manage most of your health problems?: (P) Very confident Can you mange your money, credit cards and accounts, pay bills and taxes?: (P) Yes Cognitive Screening Three Word Registration: Banana, [place], Chair Clock Drawing: Normal Clock - 2 Three Word Recall: All 3 words correct - 3 Total Score (0-5 Points): 5 Pain Assessment Pain Score: (P) 0 - No pain Advance Care Planning Do you have a living will?: (P) Yes Do you have a medical power of staff attorney?: (P) Yes Who is your medical power of staff attorney?: (P) Objective : BP 118/68 Pulse 56 Ht 5' 8 Wt 162 lb SpO2 96% BMI 24.63 kg/m No results found. Physical Exam Constitutional: General: [...] Due Pneumococcal Vaccine: 65+ Years (1 of 1 - PCV) Never done Colorectal Cancer Screening 04/17/2025 Influenza Vaccine Completed Advance Care Planning Assessment/Plan Diagnoses and all orders for this visit: Routine general medical examination at health care facility ACP (advance care planning) Flu vaccine need - Influenza, high-dose seasonal, quadrivalent, PF (BPV292) (Fluzone High Dose [place] 0.7mL dose) Hx of smoking - CT lung screening low dose; Future Prostate cancer screening - PSA Screening for viral disease - Hepatitis C antibody; Future Other hyperlipidemia (CMS/HCC) - Comprehensive metabolic panel; Future - Lipid panel; Future Benign prostatic hyperplasia without lower urinary tract symptoms - Comprehensive metabolic panel; Future Orders Placed This Encounter Procedures CT lung screening low dose Standing Status: Future Standing Expiration Date: 06/30/2025 Order Specific Question: Reason for exam: Answer: see dx Order Specific Question: Does the patient show any signs or symptoms of lung cancer? Answer: No Order Specific Question: Is this the first (baseline) CT or an annual exam? Answer: Annual [2] Order Specific Question: Did the patient receive cessation guidance? Answer: Yes [1] Order Specific Question: Is there documentation of shared decision making? Answer: Yes Order Specific Question: Has the patient been occupationally exposed to agents that are carcinogenstargeting the lungs? Answer: No [2] Order Specific Question: Does the patient have a history of smoking-related cancer other than lymphoma, leukemia, cancer of the lung, head and neck, bladder, colon, esophagus, GI, kidney, or pancreas? Answer: No [2] Order Specific Question: Has the patient been exposed to a high level of radon? Answer: No [2] Influenza, high-dose seasonal, quadrivalent, PF (DHV247) (Fluzone High Dose Quad North 0.7mL dose) Follow up in about 1 year (around 06/30/2025) for Routine F/U. Electronically signed by Ryan Longo MD on June 30, 2024 documented in this encounterMer[facility] [id number] NoteHNO ID: [id number] Author: Annabelle Morin PA-C Service: ? Author Type: Physician Count Team Clerk Type: Progress Notes Filed: 08/07/2023 9:24 AM Note Text: SECTION OF FACIAL PLASTIC AND RECONSTRUCTIVE SURGERY Head and Neck [place] Post-operative Visit Date of Service: 08/05/2023 Antwan Flowers is a 68 year old male who presents for 3-week post-op follow-up. SURGERY/PROCEDURE(S): 1. Surgical preparation of wound bed with sharp excision of scar 2. Repair nasal vestibular stenosis 3. Adjacent tissue transfer, thinning and rotation of nasal tip skin, 1.5 cm x 1 cm 4. Adjacent tissue transfer for revision scar left cheek/nasolabial fold, 5 cm x 3 cm 5. Adjacent tissue transfer, left nose (alar base), 2 cm x 4 cm 6. Adjacent tissue transfer, upper lip (philtrum), 3 cm x 4 cm 7. Revision of nasal columella, complex, use of cadaveric costal cartilage to fashion collumellar replacement graft, 3 x 2 cm 8. Placement nasal stent, left SURGERY DATE: 07/11/2023 SURGEON: Lizbeth Garcia MD Subjective: Doing well with no significant concerns since surgery. Pt is satisfied with the nasal shape and function. He states nasal breathing well. Objective: Columellar small wound area covered with crust, dry, no obvious infection signs. Assessment/Plan: - Doing well after surgery - Wound care discussed - Follow up in 3 weeks by sending me photo of nasal columella, then decide next f/u time Annabelle (Ceiling) INES MORIN, MPAS, PhD Facial Plastic and Reconstructive Surgery Head and [place]ck [place] [facility] [place] NoteHNO ID: [id number] Author: Ashlee Sania Service: ? Author Type: ? Type: Progress Notes Filed: 07/22/2023 8:16 AM Note Text: Tobacco Use: .75 packs/day, for 30 years. Quit 09/22/2014. Types: Cigarettes Was smoking cessation packet given? N/A - Patient is a non-smoker or quit >1 year ago. Was a referral initiated?N/A [facility]* Lu Elliott RN - 07/21/2023 3:07 PM EDT Spoke with Dr. Garcia, recommends additional 1 week of Augmentin, keep site clean with soapy water and Aquaphor three time sdaily, and follow up in 2 weeks, preferably in-person. Spoke with patient, identified by name and . Relayed Dr. Garcia's recommendations. Pt verbalized understanding. Let pt know our administrative tech will reach out to help schedule follow up. * Lu Elliott RN - 07/21/2023 2:37 PM EDT The left nasolabial fold suture (site) was assessed and sutures were removed as ordered. No dressing required. Patient instructed on wound care and verbalized understanding. Dr. Astorga present and removed columellar sutures and suture securing [address] Astorga removed nasal trumpet, assessed site and provided pt with recommendations regarding wound care. Pt verbalized understanding. Photos of columella sent to Dr. Garcia for further recommendations. Dr. Astorga provided pt with trimmed nasal trumpet with directions to use as nasal stent. Pt verbalized understanding. [facility] History of Present illness Narrative* AtapatyThong clarkSania - 07/21/2023 2:01 PM EDT Tobacco Use: .75 packs/day, for 30 years. Quit 09/22/2014. Types: Cigarettes Was smoking cessation packet given? N/A - Patient is a non-smoker or quit >1 year ago. Was a referral initiated?N/A Patient is a non-smoker documented in [facility] encounterSt[facility]23 NoteHNO ID: [id number] Author: Nini Bernal AA Service: ? Author Type: [place] [place] Type: Anesthesia Procedure Notes Filed: 07/11/2023 7:54 AM Note Text: ANESTHESIOLOGY PROCEDURE NOTE Airway General Information Procedure Start Time/Medication Administration: 07/11/2023 7:44 AM Patient location during procedure: OR Staffing Anesthesiologist: Mello Camara DO CAA: Nini Bernal AA Performed by: ETHEL Indications and Patient Condition Indications for airway management: anesthesia Preoxygenated: yes anesthesia circuit Patient position: sniffing Method: asleep Difficult Mask: No Final Airway Details Final airway type: endotracheal airway Final Endotracheal Airway: reinforced tube Cuffed: yes Successful intubation technique: direct laryngoscopy Endotracheal tube insertion site: oral Blade: Oc Blade size: #4 ETT size (mm): 7.5 Measured from: lips Measurement (cm): 22 Placement verified by: capnometry Cormack-Lehane Classification: grade I - full view of glottis Number of attempts at approach: 1 Airway not difficult SIGNATURE: AMARILIS Pathak PATIENT NAME: Antwan Flowers DATE: July 11, 2023 TIME: 7:54 AM CSN: [id number] NoteHNO ID: [id number] Author: Lizbeth Garcia MD Service: ? Author Type: Physician Type: Progress Notes Filed: 02/25/2023 2:31 PM Note Text: SECTION OF FACIAL PLASTIC AND RECONSTRUCTIVE SURGERY Head and Neck [place] Post-operative Visit Date of Service: 02/25/2023 Antwan Flowers is a 67 year old male who presents for 3-week post-op follow-up. SURGERY/PROCEDURE(S): Repair nasal vestibular stenosis Adjacent tissue transfer/rearrangement, left cheek 20 sq cm Adjacent tissue transfer/rearrangement, left nose 10 sq cm Left nasal scar revision, complex, 10 sq cm Postoperative Diagnosis: SCCA (squamous cell carcinoma) of skin History of nasal reconstruction History of head and neck radiation therapy SURGERY DATE: 02/07/2023 SURGEON: Lizbeth Garcia MD Subjective: Doing well with no significant concerns since surgery. Pain under control. Denies symptoms of infection. Objective: Incisions healing well. Expected postop edema. No evidence of infection. Left nasal trumpet removed and check left nostril open, no abnormal drainage or bleeding. Assessment/Plan: - Doing well after surgery - Left nasal trumpet removal - Follow up prn Discussed next surgical options for nasal better symmetry: - readjust nasal alar, balance nasolabial fold. - rebuild nasal columella with nasolabial fold or composite graft Attending Addendum Plan next stage in the fall. Surgical targets: Thin / contour carly ala left side Correct columellar retraction Improve NL fold left side I performed a history and physical examination of the patient and discussed the patient's management with Annabelle MORIN PA-C. I reviewed and edited the PA's note and agree with the documented findings and treatment plan. Lizbeth Garcia MD Facial Plastic and Reconstructive Surgery Head and Neck [place] [facility]06-06-2023 History of Present illness Narrative* Lizbeth Garcia MD - 02/25/2023 11:22 AM EDT SECTION OF FACIAL PLASTIC AND RECONSTRUCTIVE SURGERY Head and Neck [place] Post-operative Visit Date of Service: 02/25/2023 Antwan Flowers is a 67 year old male who presents for 3-week post-op follow-up. SURGERY/PROCEDURE(S): Repair nasal vestibular stenosis Adjacent tissue transfer/rearrangement, left cheek 20 sq cm Adjacent tissue transfer/rearrangement, left nose 10 sq cm Left nasal scar revision, complex, 10 sq cm Postoperative Diagnosis: SCCA (squamous cell carcinoma) of skin History of nasal reconstruction History of head and neck radiation therapy SURGERY DATE: 02/07/2023 SURGEON: Lizbeth Garcia MD Subjective: Doing well with no significant concerns since surgery. Pain under control. Denies symptoms of infection. Objective: Incisions healing well. Expected postop edema. No evidence of infection. Left nasal trumpet removed and check left nostril open, no abnormal drainage or bleeding. Assessment/Plan: - Doing well after surgery - Left nasal trumpet removal - Follow up prn Discussed next surgical options for nasal better symmetry: - readjust nasal alar, balance nasolabial fold. - rebuild nasal columella with nasolabial fold or composite graft Attending Addendum Plan next stage in the fall. Surgical targets: Thin / contour carly ala left side Correct columellar retraction Improve NL fold left side I performed a history and physical examination of the patient and discussed the patient's management with Annabelle MORIN PA-C. I reviewed and edited the PA's note and agree with the documented findings and treatment plan. Lizbeth Garcia MD Facial Plastic and Reconstructive Surgery Head and Neck [place] [facility] documented in [facility] encounterSt[facility]06-[facility] Nurse Note* Sania Rosado - 02/25/2023 11:08 AM EDT Tobacco Use: .75 packs/day, for 30 years. Quit 09/22/2014. Types: Cigarettes Was smoking cessation packet given? N/A - Patient is a non-smoker or quit >1 year ago. Was a referral initiated?N/A Patient is a non-smoker documented in [facility]St[facility]05-26-2023 NoteHNO ID: [id number] Author: Annabelle Morin PA-C Service: ? Author Type: Physician Count Team Clerk Type: Progress Notes Filed: 02/14/2023 12:52 PM Note Text: [facility] Date of Service: 02/14/2023 Antwan Flowers is a 67 year old male who presents for 1 week post-op follow-up. SURGERY/PROCEDURE(S): Repair nasal vestibular stenosis Adjacent tissue transfer/rearrangement, left cheek 20 sq cm Adjacent tissue transfer/rearrangement, left nose 10 sq cm Left nasal scar revision, complex, 10 sq cm SURGERY DATE: 02/07/2023 SURGEON: Lizbeth Garcia MD Subjective: Doing well with no significant concerns since surgery. Pain under control. Denies symptoms of infection. Objective: Incisions healing well. Expected postop edema. No evidence of infection. Left nasal trumpet in place, no abnormal drainage or bleeding. Assessment/Plan: - Doing well after surgery - Wound care discussed - Removed left facial stitches - Follow up in [address] Garcia for nasal trumpet removal Annabelle ([facility]) INES MORIN, MPAS, PhD Facial Plastic and Reconstructive Surgery Head [place] [facility] [place]-19-2023 NoteHNO ID: [id number] Author: Micheal Fowler APRN.PROPERTY AND SUPPLY OFFICER Service: ? Author Type: Nurse Per Diem Registered Nurse Type: Anesthesia Procedure Notes Filed: 02/07/2023 8:01 AM Note Text: ANESTHESIOLOGY PROCEDURE NOTE Airway General Information Procedure Start Time/Medication Administration: 02/07/2023 7:43 AM Patient location during procedure: OR Timeout Performed Pre-procedure: timeout performed Consent Obtained: Yes Patient identity confirmed: arm band and patient Staffing PROPERTY AND SUPPLY OFFICER: Micheal Fowler APRN.PROPERTY AND SUPPLY OFFICER Performed by: PROPERTY AND SUPPLY OFFICER and anesthesiologist Indications and Patient Condition Indications for airway management: anesthesia Preoxygenated: yes anesthesia circuit Method: sleep Cricoid Pressure: Yes Manual In-Line Stabilization: No Difficult Mask: No Final Airway Details Final airway type: endotracheal airway Final Endotracheal Airway: ABEL tube Cuffed: yes Successful intubation technique: direct laryngoscopy Endotracheal tube insertion site: oral Blade: Oc Blade size: #4 ETT size (mm): 7.5 Measured from: teeth Measurement (cm): 21 Placement verified by: capnometry Cormack-Lehane Classification: grade I - full view of glottis Number of attempts at approach: 1 Failed airway: no Unrecognized esophageal intubation: no Airway not difficult SIGNATURE: Micheal Fowler APRN.PROPERTY AND SUPPLY OFFICER PATIENT NAME: Antwan Flowers DATE: February 07, 2023 TIME: 7:59 AM CSN: [id number] Instructions* Patient Instructions* Sharon Zaidi PA-C - 01/29/2023 9:04 AM EDT PATIENT PREOPERATIVE INSTRUCTIONS Lizbeth Garcia MD has scheduled you for your procedure at this surgery center: [facility]: [phone] --[id number] [place] [address]. Please enter through the entrance closest to [facility]. Please read below carefully for your personalized instructions. Dietary Restrictions: - No solid food after midnight. - You may have 12 ounces of clear liquids (water, clear juices such as apple juice or gatorade, carbonated beverages, clear tea, black coffee, jello) until 2 hours before scheduled arrival at facility. Is Patient Diabetic:No Medications: Unless instructed differently below, stay on all of your medications until your surgery. Approved medications to take the morning of surgery with a sip of water: None If you start any new medications after today's visit, please contact the surgeon's office. Blood Thinning Medications: - Stop NSAIDS (Ibuprofen, Advil, Aleve, Motrin, Celebrex, Mobic, etc.) 7 days before surgery, as directed by your surgeon. - Stop Aspirin 7 days before surgery, as directed by your surgeon. - Stop Vitamin E, ALL multi-vitamins, herbals and dietary supplements 14 days before surgery. - You may take Tylenol (Acetaminophen) or any of your pain medications that do not contain aspirin or NSAIDS as needed. Important Reminders: - Candy, mints, and tobacco products are NOT permitted the morning of surgery. - Hearing aids, dentures and glasses may be worn the morning of surgery. - NO jewelry, body piercings, makeup, hairpins or contacts are to be worn the day of surgery. If you develop symptoms such as a fever, cold, or flu, or have other changes to your health within TWO DAYS of scheduled surgery or the morning of surgery, please contact the surgery center above. Personal Belongings: -Please have photo ID and insurance cards. -If you do not have a copy of advance directives on file with us, please bring a copy with you on the day of surgery. - Leave ALL valuables and money at home or with family members. For Outpatient Procedures: - YOU MUST HAVE A RESPONSIBLE MANAGER MATERIALS MANAGEMENT TAKE YOU HOME. A HAT PRESSER OR SKIVER MACHINE CANNOT BE MADE A RESPONSIBLE MANAGER MATERIALS MANAGEMENT. - We recommend that a responsible person stays with you overnight to take care of you. - You cannot stay in a hotel alone after outpatient surgery. You will not be permitted to have yoursurgery, if you do not have someone to take care of you. Arrival Time for Surgery: - The Surgery Center or hospital where you are having surgery will call the afternoon before surgery (or Friday for Friday surgery) with a scheduled arrival time. - If you have not heard by 4 pm, please contact the surgery center above. Please be aware that emergency situations arise, which may delay or change your surgical time. If this happens, we will notify you as soon as possible and regret any inconvenience. If you already have an Advance Directive, please fax a copy to [phone] or email to for it to be added to your chart. If you do not have an Advance Directive, you can find the appropriate form and more information at [email or web address]. We recommend that youcomplete the Advance Directive form found on the website and bring it with you the day of your surgery. It can be witnessed and scanned into your chart that day. Sharon Zaidi PA-C [facility] History and physical note * Sharon Zaidi PA-C - 01/29/2023 8:51 AM EDT PREANESTHESIA CONSULT CLINIC TELEHEALTH VISIT Patient has been identified by name and date of : Yes This is a virtual visit using Flashtalking video visit. It require patient-provider interaction for the medical decision making as documented below. Reason for contact: PACC visit Accompanied by: Self Scheduled Surgery: Procedure(s) (LRB): REPAIR NASAL VESTIBULAR STENOSIS (Left) TRANSFER / REARRANGEMENT, ADJACENT TISSUE, LEFT NOSTRIL (Left) Left alar scar revision and adjacent tissue transfer 10 SQ CM OR LESS (Left) CREATION RECIPIENT SITE VIA EXCISION; FACE/EARS/EYES 1ST 100SQCM ADULT (Left) I have communicated my name and active licensure. The patient's identity and physical location wereverified at the time of this visit. Either the patient or their legal representative government relations has been informed of the risks and benefits of -- and alternatives to -- treatment through a remote evaluation andconsents to proceed with the evaluation remotely. Subjective CHIEF COMPLAINT: No chief complaint on file. 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 He has a small nostril on the left from hisprevious treatments. He denies erythema, warmth or drainage. He elects to proceed with above procedure. ACTIVE PROBLEM LIST Nasal Deformity, Acquired Other Hyperlipidemia Benign Prostatic Hyperplasia With Weak Urinary Stream History of Covid-19 Nasal Obstruction Benign Prostatic Hyperplasia Without Lower Urinary Tract Symptoms PAST MEDICAL HISTORY Diagnosis Date Coronary artery disease 09/12/2017 patient denies this HLD (hyperlipidemia) PAST SURGICAL HISTORY Procedure Laterality Date APPENDECTOMY HX in 8th grade PAST SURGICAL HISTORY OF 2014 Removal of cancer in sinuses PAST SURGICAL HISTORY OF Left 1996 patella tendon reattachment PAST SURGICAL HISTORY OF multiple reconstructions for nasal/sinus PAST SURGICAL HISTORY OF 2018 colonoscopy SEPTOPLASTY 2018 FAMILY HISTORY Problem Relation Age of Onset Heart Father CABG later in life Anesthesia Problems No Family History Malig Hyperthermia No Family History Social History Tobacco Use Smoking status: Former Packs/day: 0.75 Years: 30.00 Pack years: 22.50 Types: Cigarettes Start date: 09/22/1989 Quit date: 09/22/2014 Years since quittin.3 Smokeless tobacco: Never Vaping Use Vaping Use: Never used Substance Use Topics Alcohol use: Yes Comment: once per month or less Drug use: Not Currently ALLERGIES Allergen Reactions House Dust Itching MEDICATIONS: Current Outpatient Medications Medication Sig tamsulosin HCl (TAMSULOSIN ORAL) Take 0.4 mg by mouth once daily. simvastatin (ZOCOR) 40 mg tablet Take 40 mg by mouth daily at bedtime. No current facility-administered medications for this visit. COVID VACCINATION STATUS: Fully vaccinated Tested positive 12/03/2022 - he took 2 subsequent home tests which were negative. Did not have symptoms REVIEW OF SYSTEMS: Pain Assessment: General: No weight loss, malaise or fevers. Neuro: No history of TIA's, stroke, HAIR COLORIST tumor, impaired sensorium, hemiplegia, paraplegia or quadraplegia. No neurological symptoms or problems. Respiratory: No history of current cough or dyspnea, or pneumonia in the past 6 weeks. No history of respiratory/pulmonary symptoms or problems. Cardiovascular: Positive for: HLD, Negative for Recent NC, Arrhythmia, CAD, Chest Pain, CHF, HTN, Valvular Heart Disease, DVT/PE GI: No history of GI symptoms or problems. No history of esophageal varices, recent ascites, or ETOH greater than 2 drinks per day. : Negative for dysuria, frequency, and hematuria, Positive for BPH - on Tamsulosin - denies acutesymptoms Endocrine: No history of diabetes. Has not taken steroids within the past 30 days. No history of endocrinological symptoms or problems. Hematology: No history of bleeding or clotting disorder. Pt is not taking anti- coagulation or platelet medications. No history of hematological symptoms or problems. 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 Had radiation to the sinus area Psych: No history of psychiatric symptoms or problems. Musculoskeletal: Negative for joint pain or swelling, back pain or muscle pain. Skin: Negative for lesions, rash and itching. Objective PHYSICAL EXAM: Pulse 53[home pulse oximeter[ Ht 5' 8 [patient reported[ (1.73m) Wt 175 lb (79.4kg) SpO2 98[home pulse oximeter]% BMI 26.61 kg/(m^2). VIDEO EXAM: (if completed, performed via video enabled technology) GENERAL: alert and appropriate, in no distress, well-hydrated, well nourished, and happy, smiling, interactive SKIN: no rash noted HEAD: normocephalic, no abnormality or lesion noted EYES: no injection NOSE: external nose normal without rhinorrhea NECK: full ROM RESPIRATORY: breathing non-labored and no grunting/flaring/retractions CHEST: equal chest rise with normal respiratory effort HEART: patient confirmed pulse with home pulse oximeter. HR 53 and visibly regular. No cyanosis ABDOMEN: soft and non-tender NEUROLOGIC: no cerebral deficits noted Diagnostic tests reviewed for today's visit: Lab Value Units Date High Low HB 14.4 g/dL 10/11/2022 17.0 13.0 HCT 43.9 % 10/11/2022 51.0 39.0 WBC 8.51 k/uL 10/11/2022 11.00 3.70 PLT 183 k/uL 10/11/2022 400 150 NA 141 mmol/L 10/11/2022 144 136 K 4.4 mmol/L 10/11/2022 5.1 3.7 GLUC 93 mg/dL 10/11/2022 99 74 BUN 21 mg/dL 10/11/2022 24 9 CREAT 0.97 mg/dL 10/11/2022 1.22 0.73 PTSEC No results within date range. INR No results within date range. APTT No results within date range. ALT 17 U/L 10/11/2022 54 10 AST 17 U/L 10/11/2022 40 14 TBILI 0.2 mg/dL 10/11/2022 1.3 0.2 TSH No results within date range. EKG 07/05/2021 MARKED SINUS BRADYCARDIA ABNORMAL ECG Impression/Recommendations ASSESSMENT: 1. Preop examination Scheduled for above procedure 2. Other hyperlipidemia On Zocor 3. History of COVID-19 Most recent positive test was 12/03/2022 pre-op prior to planned surgery. Patient did not have or develop symptoms. He took two home tests the next two days which were negative. METS: Walk a block or two on level ground (2.75 METs) Climb a flight of stairs or walk up a hill (5.50 METs) Participate in moderate recreational activities, such as golf, bowling, dancing, doubles tennis, orthrowing a baseball or football (6.00 METs) Patient denies any chest pain or undue shortness of breath with the above physical activity. Walking (weather dependent), yard work, golfing, working ASA Class: 2 ANESTHESIA FINDINGS: Intubation History: No history of difficult intubation Significant Anesthesia Considerations: Difficult IV/Vein Access: has not required ultrasound guidance or advanced access Airway Exam: General: Normal appearance Mallampati Score is CLASS II ULBT: Class I - Lower incisors can bite the upper lip above the ed line Neck: Normal appearance and function Mouth: Normal tongue size and Mouth opening greater than 2 finger breaths Dentition: Intact Airway History: No abnormal airway history STOP BANG Score: Criteria: Age over 50 (67 year old) Male gender Score = 2 PLAN: This patient is optimally prepared for surgery. CONSULTS: Patient does not require consults for optimization at this time. The Following Tests/Procedures Have Been Initiated: Labs not indicated per PACC protocol, EKG not indicated per [facility] protocol Planned Anesthetic: General Instructions Given to Patient: Patient given verbal instructions and voices comprehension and compliance. Copy sent electronically via My Chart, email, or mobile device. This is a virtual visit. It required patient-provider interaction for the medical decision making as documented above. SIGNATURE: Sharon Zaidi PA-C PATIENT NAME: Antwan Flowers DATE: 01/29/2023 TIME: 8:50 AM PAGER/CONTACT #: documented in this encounter[facility] Miscellaneous Notes* Telephone Encounter - Lu Elliott RN - 01/28/2023 1:10 PM EDT Spoke with Dr. Garcia and Rachel Hardy. Per Dr. Garcia, pt does not need to be seen for pre-op appt. Rachel Hardy to reach out to pt to cancel appt with Dr. Garcia and reschedule PACC appt to virtual visit. * Telephone Encounter - Lu Elliott RN - 01/27/2023 9:44 AM EDT Called and spoke with patient, identified name and . Pt is currently scheduled for appt next Friday with Jose for pre op visit, surgery Friday. Pt would like to know if he needs this appt as he was just seen in Sep and if needed, if it could be done virtually. PACC appt completed and states symptoms unchanged from LV with Dr. Garcia on 10/01/22. documented in this encounterSt[facility]23 Miscellaneous Notes* Telephone Encounter - Karlo Zambrano APRN.CNP - 10/10/2022 10:32 AM EST Noted labs not completed. Called pt spoke with him, he states will get labs drawn today or tomorrow. documented in this encounterSt. [facility]01-13-2023 Miscellaneous Notes* Telephone Encounter - Karlo Zambrano APRN.CNP - 10/04/2022 10:[address] Garcia, Saw pt for PACC today. Please have your office place surgical episode in epic. Thanks, Karlo Zambrano APRN.CNP documented in this encounterSt. [facility]01-13-2023 Instructions* Patient Instructions* Karlo Zambrano APRN.CNP - 10/04/2022 9:59 AM EST PATIENT PREOPERATIVE INSTRUCTIONS Lizbeth Garcia MD has scheduled you for your procedure at this surgery center: [facility]: [phone] --[address] [place] [address] [facility]. Please read below carefully for your personalized instructions. Have labs drawn this week at closest [facility] facility Dietary Restrictions: - No solid food after midnight. - You may have 12 ounces of clear liquids (water, clear juices such as apple juice or gatorade, carbonated beverages, clear tea, black coffee, jello) until 2 hours before scheduled arrival at facility. Medications: Unless instructed differently below, stay on all of your medications until your surgery. Approved medications to take the morning of surgery with a sip of water: none If you start any new medications after today's visit, please contact the surgeon's office. Blood Thinning Medications: - Stop NSAIDS (Ibuprofen, Advil, Aleve, Motrin, Celebrex, Mobic, etc.) 7 days before surgery, as directed by your surgeon. - Stop Aspirin 7 days before surgery, as directed by your surgeon. - Do NOT stop aspirin or other anticoagulants without consulting with your cut out stitcher or prescribing physician. - Stop Vitamin E, ALL multi-vitamins, herbals and dietary supplements 14 days before surgery. - You may take Tylenol (Acetaminophen) or any of your pain medications that do not contain aspirin or NSAIDS as needed. Important Reminders: - Candy, mints, and tobacco products are NOT permitted the morning of surgery. - Hearing aids, dentures and glasses may be worn the morning of surgery. - NO jewelry, body piercings, makeup, hairpins or contacts are to be worn the day of surgery. If you develop symptoms such as a fever, cold, or flu, or have other changes to your health within TWO DAYS of scheduled surgery or the morning of surgery, please contact the surgery center above. Personal Belongings: -Please have photo ID and insurance cards. -If you do not have a copy of advance directives on file with us, please bring a copy with you on the day of surgery. - Leave ALL valuables and money at home or with family members. For Outpatient Procedures: - YOU MUST HAVE A RESPONSIBLE MANAGER MATERIALS MANAGEMENT TAKE YOU HOME. A HAT PRESSER OR SKIVER MACHINE CANNOT BE MADE A RESPONSIBLE MANAGER MATERIALS MANAGEMENT. - We recommend that a responsible person stays with you overnight to take care of you. - You cannot stay in a hotel alone after outpatient surgery. You will not be permitted to have yoursurgery, if you do not have someone to take care of you. Arrival Time for Surgery: - The Surgery Center or hospital where you are having surgery will call the afternoon before surgery (or Friday for Friday surgery) with a scheduled arrival time. - If you have not heard by 4 pm, please contact the surgery center above. Please be aware that emergency situations arise, which may delay or change your surgical time. If this happens, we will notify you as soon as possible and regret any inconvenience. If you already have an Advance Directive, please fax a copy to [phone] or email to for it to be added to your chart. If you do not have an Advance Directive, you can find the appropriate form and more information at [email or web address]. We recommend that youcomplete the Advance Directive form found on the website and bring it with you the day of your surgery. It can be witnessed and scanned into your chart that day. Karlo Zambrano APRN.CNP documented in this encounterSt. [facility]01-13-2023 History and physical note * Karlolivan Zambrano APRN.[facility] - 10/04/2022 9:56 AM EST PREANESTHESIA CONSULT CLINIC TELEHEALTH VISIT Patient has been identified by name and date of : Yes This is a virtual visit using [employer] video visit. It require patient-provider interaction for the medical decision making as documented below. Reason for contact: PACC visit Accompanied by: Self Scheduled Surgery: Per Dr Jose eng note: reconstruct his ala revision with skin grafting, ear cartilage grafting, scar revision of ala and nostril. Subjective CHIEF COMPLAINT: Patient presents with: Pre-Op Visit HPI: 68 year old male with history of multiple nasal reconstructions, radiation to nose. Per Dr Garcia 10/01/22 albertina note, pt to have reconstruct his ala revision with skin grafting, ear cartilage grafting, scar revision of ala and nostril. Pt takes nothing for pain. He denies abdominal pain, nausea, vomiting, fevers or chills. 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 No pertinent family history. Social History Tobacco Use Smoking status: Former Packs/day: 0.75 Years: 30.00 Pack years: 22.50 Types: Cigarettes Start date: 09/22/1989 Quit date: 09/22/2014 Years since quittin.0 Smokeless tobacco: Never Vaping Use Vaping Use: Never used Substance Use Topics Alcohol use: Yes Comment: once per month or less Drug use: Not Currently ALLERGIES Allergen Reactions House Dust Itching MEDICATIONS: Current Outpatient Medications Medication Sig Sodium Chloride 0.9 % soln Use for nasal irrigation as directed. Dispense as 1 L bottles. tamsulosin HCl (TAMSULOSIN ORAL) Take 0.4 mg by mouth once daily. simvastatin (ZOCOR) 40 mg tablet Take 40 mg by mouth daily at bedtime. No current facility-administered medications for this visit. COVID VACCINATION STATUS: Fully vaccinated REVIEW OF SYSTEMS: Pain Assessment: General: No weight loss, malaise or fevers. Neuro: No history of TIA's, stroke, HAIR COLORIST tumor, impaired sensorium, hemiplegia, paraplegia or quadraplegia. No neurological symptoms or problems. Respiratory: No history of current cough or dyspnea, or pneumonia in the past 6 weeks. No history of respiratory/pulmonary symptoms or problems. Cardiovascular: Positive for: HLD, Negative for Arrhythmia, Chest Pain, DVT/PE GI: No history of GI symptoms or problems. No history of esophageal varices, recent ascites, or ETOH greater than 2 drinks per day. : Negative for incontinence, Positive for BPH takes Flomax Endocrine: No history of diabetes. Has not taken steroids within the past 30 days. No history of endocrinological symptoms or problems. Hematology: No history of bleeding or clotting disorder. Pt is not taking anti- coagulation or platelet medications. No history of hematological symptoms or problems. Noted PLT= 133 with 07/12 labs, today's labs pending Oncology: See HPI Psych: No history of psychiatric symptoms or problems. Musculoskeletal: Negative for joint pain or swelling, back pain or muscle pain. Skin: Negative for lesions, rash and itching. Objective PHYSICAL EXAM: Pulse 61[per pt home pulse ox, pt states palpated HRRR[ Ht 5' 8 (1.73m) Wt 175 lb (79.4kg) SpO2 98[per home pulse ox]% BMI 26.61 kg/(m^2). VIDEO EXAM: (if completed, performed via video enabled technology) GENERAL: alert and appropriate, in no distress, well-hydrated,and interactive SKIN: no rash noted HEAD: normocephalic, no abnormality or lesion noted EYES: no injection EARS: external ears normal NOSE: external nose normal without rhinorrhea OROPHARYNX: moist mucus membranes, lips, teeth and gums are without obvious lesion NECK: full ROM, no cervical LNs noted RESPIRATORY: breathing non-labored and no grunting/flaring/retractions CHEST: equal chest rise with normal respiratory effort HEART: Self palpated radial pulse regular when counted aloud by pt ABDOMEN: soft and non-tender EXTREMITIES: no reported LE edema per pt NEUROLOGIC: no obvious deficit Diagnostic tests reviewed for today's visit: Lab Value Units Date High Low HB No results within date range. HCT No results within date range. WBC No results within date range. PLT No results within date range. NA No results within date range. K No results within date range. GLUC No results within date range. BUN No results within date range. CREAT No results within date range. PTSEC No results within date range. INR No results within date range. APTT No results within date range. ALT No results within date range. AST No results within date range. TBILI No results within date range. TSH No results within date range. Lab Value Units Date High Low HCGQT No results within date range. UHCG No results within date range. HCG, BODY* No results within date range. Lab Value Units Date High Low ABORHD No results within date range. ABSCREEN No results within date range. No results found for: HBA1C Most recent labs Impression/Recommendations ASSESSMENT: Other hyperlipidemia Assessment: takes Zocor Nasal deformity, acquired Assessment: multiple reconstructions, + radiation Benign prostatic hyperplasia with weak urinary stream Assessment: takes Flomax METS: Climb a flight of stairs or walk up a hill (5.50 METs) Patient denies any chest pain or undue shortness of breath with the above physical activity. Walks outdoors weather permitting, golf some days ASA Class: 2 ANESTHESIA FINDINGS: Intubation History: No history of difficult intubation Significant Anesthesia Considerations: None Airway Exam: General: Normal appearance Mallampati Score is CLASS II ULBT: Class II - Lower incisors can bite the upper lip below the ed line Neck: Normal appearance and function, Distance from hyoid to mentum during neck extension is at least 3 finger breaths Mouth: Normal tongue size and Mouth opening greater than 2 finger breaths Dentition: Intact Airway History: History of head/neck surgery that distorted airway, including mouth, neck, or theirmobility History of head/neck radiation that distorted airway, including mouth, neck, or their mobility STOP BANG Score: Criteria: Age over 50 (67 year old) Male gender Score = 2 PLAN: This patient is optimally prepared for surgery. See phone encounter to place episode for surgery Pt to have labs done in next week. CONSULTS: Patient does not require consults for optimization at this time. The Following Tests/Procedures Have Been Initiated: Orders Placed This Encounter CBC with Differential Standing Status: Future Standing Expiration Date: 12/04/2022 Comp Metabolic Panel Standing Status: Future Standing Expiration Date: 12/04/2022 Planned Anesthetic: Per anesthesia choice Instructions Given to Patient: Patient given verbal instructions and voices comprehension and compliance. Copy sent electronically via My Chart, email, or mobile device. I spent more than 0-20 minutes [id number] with the patient and over half the time was devoted to counseling and/or coordination of care. This is a virtual visit. It required patient-provider interaction for the medical decision making as documented above. SIGNATURE: Karlo Zambrano APRN.CNP PATIENT NAME: Antwan Flowers DATE: October 04, 2022 TIME: 10:28 AM PAGER/CONTACT #: documented in this encounterSt. [facility]01-11-2023 NoteHNO ID: [id number] Author: Lizbeth Garcia MD Service: ? Author Type: Physician Type: Progress Notes Filed: 10/02/2022 7:19 AM Note Text: Has been healing well. His left nostril, while improved, has stenosed some. This has left him with left nasal obstruction. On exam, it is obvious that there is some cicatrical stenosis. His nasal valve is stenotic, restricting his airway. The tip is pulled to that side. His alar crease is also blunted. 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 P - reconstruct his ala revision with skin grafting, ear cartilage grafting, scar revision of ala and nostril. I spent 30 minutes with the patient, over half of which was in counseling and coordination of care.[facility] History of Present illness Narrative* Lizbeth Garcia MD - 10/02/2022 7:11 AM EST Has been healing well. His left nostril, while improved, has stenosed some. This has left him with left nasal obstruction. On exam, it is obvious that there is some cicatrical stenosis. His nasal valve is stenotic, restricting his airway. The tip is pulled to that side. His alar crease is also blunted. 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 P - reconstruct his ala revision with skin grafting, ear cartilage grafting, scar revision of ala and nostril. I spent 30 minutes with the patient, over half of which was in counseling and coordination of care. documented in this encounterSt. Charles Hospital01-10-2023 Nurse Note* Ajay Lawson MA - 10/01/2022 1:57 PM EST Tobacco Use: .75 packs/day, for 30 years. Quit 09/22/2014. Types: Cigarettes Was smoking cessation packet given? N/A - Patient is a non-smoker or quit >1 year ago. Was a referral initiated?N/A Patient is a non-smoker documented in this encounterSt. [facility] HospitalEvaluation [facility]* Diagnosis SCCA (squamous cell carcinoma) of skin- Primary [facility]* Diagnosis Preop examination- Primary Preoperative examination, unspecified Pre-op evaluation Preoperative examination, unspecified Other hyperlipidemia Nasal deformity, acquired Acquired deformity of nose Benign prostatic hyperplasia with weak urinary stream Encounter for screening for COVID-19 SCCA (squamous cell carcinoma) of skin [facility]* Diagnosis Preop examination- Primary Preoperative examination, unspecified Other hyperlipidemia History of COVID-19 SCCA (squamous cell carcinoma) of skin [facility]* Diagnosis Skin cancer- Primary Unspecified malignant neoplasm of skin, site unspecified Surgical followup visit Follow-up examination, following unspecified surgery Nasal valve stenosis Other diseases of nasal cavity and sinuses [facility] Visit for suture removal- Primary Encounter for removal of sutures [facility]* Diagnosis Routine general medical examination at health care facility- Primary Routine general medical examination at a health care facility ACP (advance care planning) Other specified counseling Flu vaccine need Hx of smoking Prostate cancer screening Special screening for malignant neoplasm of prostate Screening for viral disease Special screening examination for unspecified viral disease Other hyperlipidemia (CMS/HCC) Benign prostatic hyperplasia without lower urinary tract symptoms documented [facility]* Diagnosis 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 [facility]* Diagnosis 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 documented in this encounter [facility]* Diagnosis Postoperative care for cataract- Primary Follow-up examination, following other surgery [facility]* Diagnosis Postoperative care for cataract- Primary Follow-up examination, following other surgery documented in this encounter [facility]* Diagnosis Postoperative care for cataract- Primary Follow-up examination, following other surgery documented in this encounter [facility]* Diagnosis PCO (posterior capsular opacification), bilateral- Primary Unspecified after-cataract Pseudophakia Lens replaced by other means documented in this encounter [facility]* Diagnosis Routine general medical examination at health care facility- Primary Routine general medical examination at a health care facility ACP (advance care planning) Other specified counseling Other hyperlipidemia Flu vaccine need Prostate cancer screening Special screening for malignant neoplasm of prostate Hx of smoking documented in this encounter [facility] Healthcare Summary Purpose Family History No Family History Records FoundNo Family History Records FoundNo Family History Records FoundNo Family History Records FoundNo Family History Records FoundNo Family History Records FoundNo Family History Records FoundNo Family History Records Found Advance Directives No Advanced Directives Records FoundNo Advanced Directives Records FoundNo Advanced Directives Records FoundNo Advanced Directives Records FoundNo Advanced Directives Records FoundNo Advanced Directives Records FoundNo Advanced Directives Records FoundNo Advanced Directives Records Found Reason for Referral SpecialtyDiagnoses / ProceduresReferred By ContactReferred To ContactRadiology Diagnoses Hx of smoking Procedures CT lung screening low dose Ryan Longo MD [address] [facility] [address] [place] [address] [facility] [address] [place] [address] Referral IDStatusReasonStart DateExpiration DateVisits RequestedVisits [id number] Additional Source Comments (unrecognized sect ion and content) No Status Records FoundNo Status Records FoundNo Status Records FoundNo Status Records FoundNo Status Records FoundNo Status Records FoundNo Status Records FoundNo Status Records Found INFORMATION SOURCE (unrecogn ized section and content) DATE CREATED AUTHOR 03/11/2018 [facility] DATE CREATED AUTHOR AUTHOR'S ORGANIZ ATION 04/11/2018 [facility] DATE CREATED AUTHOR AUTHOR'S ORGANIZ ATION 01/23/2022 [facility] DATE CREATED AUTHOR AUTHOR'S ORGANIZ ATION 05/15/2022 [facility] [employer] DATE CREATED AUTHOR AUTHOR'S ORGANIZ ATION 07/23/2023 [facility] DATE CREATED AUTHOR AUTHOR'S ORGANIZ ATION 08/09/2023 [facility] DATE CREATED AUTHOR AUTHOR'S ORGANIZ ATION 07/14/2025 [facility] DATE CREATED AUTHOR AUTHOR'S ORGANIZ ATION 07/16/2025 [facility] Source Comments (unrecognize d section and content) In the event this informatio n is protected by the Federal Confidentiality of Alcohol and Drug Abuse Patient Records regulations: The Federal rules restrict any use of the information to criminally investigate or prosecute any alcohol or drug abuse patient.[facility] HospitalIn the event this information is protected by the Federal Confidentiality of Alcohol and Drug Abuse Patient Records regulations: The Federal rules restrict any use of the information to criminally investigate or prosecute any alcohol or drug abuse patient.[facility] HospitalIn the event this information is protected by the Federal Confidentiality of Alcohol and Drug Abuse Patient Records regulations: The Federal rules restrict any use of the information to criminally investigate or prosecute any alcohol or drug abuse patient.[facility] HospitalIn the event this information is protected by the Federal Confidentiality of Alcohol and Drug Abuse Patient Records regulations: The Federal rules restrict any use of the information to criminally investigate or prosecute any alcohol or drug abuse patient.[facility] HospitalIn the event this information is protected by the Federal Confidentiality of Alcohol and Drug Abuse Patient Records regulations: The Federal rules restrict any use of the information to criminally investigate or prosecute any alcohol or drug abuse patient.[facility] HospitalIn the event this information is protected by the Federal Confidentiality of Alcohol and Drug Abuse Patient Records regulations: The Federal rules restrict any use of the information to criminally investigate or prosecute any alcohol or drug abuse patient.[facility] HospitalIn the event this information is protected by the Federal Confidentiality of Alcohol and Drug Abuse Patient Records regulations: The Federal rules restrict any use of the information to criminally investigate or prosecute any alcohol or drug abuse patient.[facility] HospitalIn the event this information is protected by the Federal Confidentiality of Alcohol and Drug Abuse Patient Records regulations: The Federal rules restrict any use of the information to criminally investigate or prosecute any alcohol or drug abuse patient.[facility] HospitalIn the event this information is protected by the Federal Confidentiality of Alcohol and Drug Abuse Patient Records regulations: The Federal rules restrict any use of the information to criminally investigate or prosecute any alcohol or drug abuse patient.[facility] Reason for Visit (unrecogniz ed section and content) ReasonCommentsPost OpFollow up post opReasonCommentsPreOp CallReasonCommentsPre- Op VisitReasonCommentsPost OpPt states he has no concerns.ReasonCommentsPost Op Pt states he is getting sutures removed today.ReasonCommentsMedicare Annual Wellness Visit SubsequentReasonCommentsEye ExamCataractReasonOnset DateComments Med Mbyhyr4810/05/2024ReasonCommentsPost-op Swtimt-[id number]-[id number] CommentsFollow-up Care Teams (unrecognized sec tion and content) Team MemberRelationshipSpecialtyStart DateEnd Date Manny Mejia MD PCP - GeneralFamily Medicine02/02/15Team MemberRelationshipSpecialtyStart DateEnd Date Manny Mejia MD PCP - GeneralFamily Medicine02/02/15Team MemberRelationshipSpecialtyStart DateEnd Date Manny Mejia MD PCP - GeneralFamily Medicine02/02/15Team MemberRelationshipSpecialtyStart DateEnd Date Manny Mejia MD PCP - GeneralFamily Medicine02/02/15Team MemberRelationshipSpecialtyStart DateEnd Date Manny Mejia MD PCP - GeneralFamily Medicine02/02/15Team MemberRelationshipSpecialtyStart DateEnd Date Ryan Longo II, MD [address] [place] [address] PCP - GeneralInternal Medicine06/12/23Team MemberRelationshipSpecialtyStart Date End Date Ryan Longo MD [address] [place] [address] PCP - GeneralInternal Medicine05/23/23Team MemberRelationshipSpecialtyStart Date End Date Ryan Longo MD [address] [place] [address] PCP - GeneralInternal Medicine05/23/23Team MemberRelationshipSpecialtyStart Date End Date Ryan Longo MD [address] [place] [address] PCP - GeneralInternal Medicine05/23/23am MemberRelationshipSpecialtyStart Date End Date Ryan Longo MD [address] [place] [address] PCP - GeneralInternal Medicine05/23/23am MemberRelationshipSpecialtyStart Date End Date Ryan Longo MD [address] [place] [address] PCP - GeneralInternal Medicine05/23/23am MemberRelationshipSpecialtyStart Date End Date Ryan Longo MD [address] [place] [address] PCP - GeneralInternal Medicine05/23/23am MemberRelationshipSpecialtyStart Date End Date Ryan Longo MD [address] [place] [address] PCP - GeneralInternal Medicine05/23/23am MemberRelationshipSpecialtyStart Date End Date Ryan Longo MD [address] [place] [address] PCP - GeneralInternal Medicine05/23/23am MemberRelationshipSpecialtyStart Date End Date Ryan Longo MD [address] [place] [address] PCP - GeneralInternal Medicine05/23/23am MemberRelationshipSpecialtyStart Date End Date Ryan Longo MD [address] [place] [address] PCP - GeneralInternal Medicine05/23/23Te MemberRelationshipSpecialtyStart Date End Date Ryan Longo MD [address] [facility] [address] [place] [address] PCP - GeneralInternal Medicine05/23/23Te MemberRelationshipSpecialtyStart Date End Date Ryan Longo MD [address] [facility] [address] [place] [address] PCP - GeneralInternal [facility]05/23/23 FOR RECORDS PERTAINING TO PATIENTS WHO ARE OR HAVE BEEN ENROLLED IN A CHEMICAL DEPENDENCY/SUBSTANCEABUSE PROGRAM, SOME INFORMATION MAY BE OMITTED. This clinical summary was aggregated from multiple sources. Caution should be exercised in using it in the provision of clinical care. This summary normalizes information from multiple sources, and as a consequence, information in this document may materially change the coding, format and clinical context of patient data. In addition, data may be omitted in some cases. CLINICAL DECISIONS SHOULD BE BASED ON THE PRIMARY CLINICAL RECORDS. [facility]. provides no warranty or guarantee of the accuracy or completeness of information in this document.
--- OUTSIDE RECORDS SUMMARY | 2025-07-20 08:01 | XMS_ITS | Clinical Summary ---
Author Organization [facility] Address [address] [place] [address] Phone Care Team Providers Care Cub Reporter Name Role Phone Vargas Vivar MD Primary Care Provider [phone] Social History Tobacco UseTypesPacks/DayYears UsedDateSmoking Tobacco: Never AssessedSex and Gender InformationValueDate RecordedSex Assigned at BirthNot on fileLegal Sex Male08/16/2022 10:06 AM ESTGender IdentityNot on fileSexual OrientationNot on file Plan of Treatment Not on file Medical Devices ImplantedTypeAreaManufacturerDevice IdentifierShelf Expiration DateModel / Serial / LotImplant, Ent, Propel Mini Mometasone Fuorate, 370 Case [id number] Implanted:Qty: 2 on 09/12/2017 by Xavier Haynes MDImplantINTERSECT ENT 12/13/201860011 / / [id number]:Converted from Care Acute. Please see archived information for full log information. Care Teams Team MemberRelationshipSpecialtyStart DateEnd Date Vargas Vivar MD [address] [facility] [place] [address] [facility]06/19/16
== END 2025-07-20 07:56 | disposition home or self-care (01) ==
LOC: CT 07:55
PROVIDERS: PCP Internal Medicine; Visit Provider Internal Medicine
DX: J98.11 Atelectasis (principal); Z87.891 Personal history of nicotine dependence
CPT/HCPCS: 71271